=== PATIENT | male | born 1945 | race Caucasian/White ===

== ENCOUNTER → 2020-01-07 08:37 | Outpatient (BNVA) | payer MEDICARE, SELFPAY | PROVIDERS: Family Provider Internal Medicine; PCP Internal Medicine; Visit Provider Urology | DX: C61 Malignant neoplasm of prostate (principal); N39.9 Disorder of urinary system, unspecified; N52.9 Male erectile dysfunction, unspecified | CPT/HCPCS: 81001; 84153 ==

== ENCOUNTER 2020-02-10 12:11 | Emergency (ER) | payer MEDICARE, SELFPAY ==
[2020-02-10 12:21] VITALS: BP 209/122; PULSE 58; RESP 18; TEMP 36.9; O2SAT 99; BMI 22.8
--- NOTE | 2020-02-10 12:29 | CT_ITS ---
WS: [id number] CT HEAD NONCONTRAST HISTORY: stroke like symptoms TECHNIQUE: Contiguous axial imaging performed through the brain in 2.5 mm imaging. Bone and soft tiss ue windows. Sagittal and coronal reformats reviewed. All CT scans at [facility] use at ast one of these dose optimization techniques: automated exposure control; mA and/or kV adjustment pe r patient size (includes targeted exams where dose is matched to clinical indication); or iterative r econstruction. DLP: 771.08 mGy.cm COMPARISON: None available. No acute intracranial hemorrhage, midline shift or mass effect. Mild atrophy and moderate chronic microvascular ischemic changes in the white matter. Remote lacunar infarcts in the basal ganglia. Mild atrophy of the cerebellum. Retrocerebellar arachnoid cyst. Ventricles: Normal size with no hydrocephalus. Paranasal sinuses: As visualized are clear. Mastoid air cells: Well pneumatized. Calvarium and scalp: Skull is intact with no soft tissue edema or swelling. Notified Reba Randall MD [facility] [place] at 02/10/2020 12:[address]/CT head wo con* [id number] IMPRESSION: 1. No acute intracranial hemorrhage or edema. 2. Mild atrophy and chronic microvascular ischemic disease with prior lacunar.
--- NOTE | 2020-02-10 13:03 | W.ED.NEUROSD ---
HPI - Neuro Symptoms/Deficit General: Chief Complaint: Neuro Symptoms/Deficit Stated Complaint: stoke like symptoms Time Seen by Provider: 02/10/20 12:46 Source: patient and family Mode of arrival: ambulatory History of Present Illness: HPI Narrative: Patient was on his tractor moving hay when he developed a sudden onset of tingling on the left side of his face. He also states that he felt emotional about the same time. He was concerned about a stroke so he called his and his states that he had difficulty getting out off the tractor because of weakness on the left side. The patient has a baseline dysarthria but his says that his speech is more slurred. All his symptoms have resolved except some mild slurring of his speech according to his . He came here for evaluation. Onset (ago): hour(s) (2) Time: 11:05 Timing confirmed by: spouse Location: speech, left face, left arm and left leg History of same: No Severity: mild Quality: weak and tingling Relieving factors: time Exacerbating factors: none Context: sudden onset On Anticoagulants: No Associated symptoms: Reports no associated symptoms; Deny headache(s), nausea, vertigo or vomiting Treatments Prior to Arrival: none Review of Systems General: Reports: 10 or more systems reviewed and unremarkable except in HPI and below Const: Denies: fever(s), chills or body aches Eyes: Denies: change in vision or blurry vision ENMT: Denies: throat pain, enlarged tonsils, odynophagia, hoarseness, mouth pain or swelling of lips/tongue Card: Denies: palpitations, irregular heart rhythm, edema or swelling of feet/ankles Resp: Denies: dyspnea, productive cough or non-productive cough GI: Denies: abdominal pain, nausea or vomiting : Denies: flank pain, dysuria, urinary frequency, urinary urgency or urinary hesitancy Musc: Denies: neck pain, back pain or extremity swelling Skin/Breast: Denies: rash, pruritus or erythema Neuro: Reports: weakness in extremities and difficulty walking; Denies: headache(s), numbness in extremities, dizziness, vertigo, confusion, behavioral changes or seizure-like activity Endo: Denies: polyuria, polydipsia or tired all the time FOR[facility] ED PFSH: Medical History ASHD (arteriosclerotic heart disease) CKD (chronic kidney disease) Dyslipidemia Erectile dysfunction HTN (hypertension) Ischemic cardiomyopathy Myocardial infarction Prostate cancer PUD (peptic ulcer disease) Surgical History Hx of heart artery stent Hx of hernia repair Family History Father , PROSTATE CANCER Cancer Mother , OVARIAN CANCER Cancer Social History Smoking and tobacco status: never smoked Alcohol intake: never Adopted: No Caregiver/support person: No Lives independently: No Household members: spouse Marital status: Current occupational status: retired History of recent travel: No Current gender identity: Male NIH stroke score NIHSS: Level Of Consciousness - 1a: 0 Level Of Consciousness Questions - 1b: Both Correct Level Of Consciousness Commands - 1c: Both Correct Best Gaze - 2: Normal Visual Dalton - 3: No Visual Loss Facial Palsy - 4: Normal Motor Arm Right - 5: No Drift Motor Arm Left - 5: No Drift Motor Leg Right - 6: No Drift Motor Leg Left - 6: No Drift Limb Ataxia - 7: Absent Sensory - 8: Normal Best Language - 9: No Aphasia Dysarthia - 10: Mild/Moderate Dysarthia Extinction And Inattention - 11: 0 Score: Total Score: 1 Physical Exam Const: COMMON NORMALS: no acute distress, average body habitus, patient oriented x3, no limitations, healthy appearing, alert and well nourished HENMT: COMMON NORMALS: normocephalic, atraumatic and moist oral mucous membranes HEAD & SCALP: normocephalic and atraumatic Eye: COMMON NORMALS: Equal, round and reactive pupils present, EOMs intact bilaterally, conjunctivae normal and no scleral icterus CONJUNCTIVA: Yes conjunctivae normal PUPIL: Yes Equal, round and reactive pupils present Neck/C-Spine: COMMON NORMALS: full ROM, supple, no meningeal signs, no JVD and No carotid bruits Chest: COMMONS NORMALS: normal inspection of the chest and normal palpation of entire chest wall Resp: COMMON NORMALS: normal respiratory effort, No retractions, No use of accessory muscles, clear to auscultation bilaterally and percussion normal AUSCULTATION: clear to auscultation bilaterally PERCUSSION: percussion normal Cardio: COMMON NORMALS: no JVD, regular rate, regular rhythm, S1 normal heart sound present, S2 normal heart sound present, No gallops present (Cardio), No clicks present (Cardio), No murmurs present (Cardio), No rub (Cardio) and Peripheral pulses 2+ throughout RATE: regular rate RHYTHM: regular rhythm HEART SOUNDS: S1 normal heart sound present and S2 normal heart sound present PERIPHERAL PULSES: Peripheral pulses 2+ throughout GI: COMMON NORMALS: Normal to inspection, nondistended, normoactive bowel sounds present, Soft to palpation, non-tender, No hepatosplenomegaly present, no masses and no bruits PALPATION: Yes Soft to palpation and Yes No hepatosplenomegaly present : COMMON NORMALS: Yes no CVA tenderness BLADDER/KIDNEY EXAM: Yes no CVA tenderness Back/Pelvis: COMMON NORMALS: no CVA tenderness Extremity: COMMON NORMALS: normal to inspection, full ROM, capillary refill normal, no calf tenderness and no pedal edema Neuro: COMMON NORMALS: patient oriented x3, CN's II-XII intact bilaterally, moves all extremities, no focal motor deficits, no sensory deficits noted and gait normal (patient got up and walked in the hallway. Gait normal) SENSORIUM/ORIENTATION: Yes alert MENINGEAL SIGNS: Yes no meningeal signs Skin: COMMON NORMALS: no rashes or lesions noted, no wounds, turgor normal, no jaundice, no petechiae and no mottling GENERAL SKIN EXAM: no rashes or lesions noted and turgor normal Course Reevaluation(s): Reevaluation #1: Discussed his lab and imaging findings with him. Also discussed my conversation with Dr. Gauthier with him. Head CT negative, NIHSS low with a score 1. CMP with an elevated BUN and creatinine suggesting mild dehydration. Discussed placing the patient on antiplatelet and statin, however the patient states that he cannot tolerate aspirin or clopidogrel and he cannot tolerate any statin. I am therefore discharging him home with no new medications. The patient voiced understanding and is in agreement with the plan. Time: 14:00 Consultations: Consultation #1: Dr. Gauthier, neurology. Since his NIHSS is 1, there is no need for further work-up. Patient can be discharged home. Time: 13:03 Vital Signs: Vital signs: Vital Signs Temperature 98.5 F 02/10/20 12:21 Pulse Rate 53 L 02/10/20 15:49 Respiratory Rate 18 02/10/20 15:49 Blood Pressure 194/99 02/10/20 15:49 Pulse Oximetry 97 02/10/20 15:49 MDM - Neuro Symptoms/Deficit MDM Narrative: Medical decision making narrative: 75-year-old gentleman who presents to the emergency department with concerns of strokelike symptoms. NIHSS was 1, low score. After discussion with the neurologist it was determined that he did not need any further work-up. The patient was not discharged home on antiplatelet or a statin because he is unable to tolerate any of these medications. He is therefore discharged home to follow-up with his primary care provider. He is advised to increase his water intake, especially when he is outside working. Differential Diagnosis: Neuro Differential Diagnosis: Likely convulsions, delirium, cerebrovascular accident and transient cerebral ischemia Medical Records: Attestation: I reviewed the patient's medical records. Lab Data: Attestation: I reviewed the patient's lab results. Labs: Lab Results 02/10/20 02/10/20 02/10/20 Range/Units 13:24 13:24 13:26 WBC 6.1 (4.0-10.0) 10^3/ uL RBC 5.02 (4.1-5.3) 10^6/u L Hgb 15.3 (11.7-16.6) g/dL Hct 47.0 (42.0-52.0) % MCV 93.6 (80-94) fL MCH 30.5 (28.0-34.0) pg MCHC 32.6 (30.0-36.0) g/dL RDW 11.9 L (12.1-15.1) % Plt Count 246 (130-400) 10^3/c mm MPV 9.3 (7.4-10.4) fL Neut % (Auto) 67.1 % Lymph % (Auto) 21.2 % [place] % (Auto) 7.7 % Eos % (Auto) 3.0 % Baso % (Auto) 0.8 % Neut # (Auto) 4.1 (1.8-7.7) 10^3/u L Lymph # (Auto) 1.3 (0.8-4.8) 10^3/u L Win[place] # (Auto) 0.5 (0.2-0.9) 10^3/u L Eos # (Auto) 0.2 (0.0-0.8) 10^3/u L Baso # (Auto) 0.1 (0.0-0.1) 10^3/u L Nucleated RBC % (a uto) 0 % Nucleated RBCs # 0.0 /100WBC Sodium 139 (136-145) mmol/L Potassium 4.6 (3.5-5.1) mmol/L Chloride 102 (98-107) mmol/L Carbon Dioxide 27 (22-29) mmol/L Anion Gap 14.6 (5-19) BUN 24 H (8-23) mg/dL Creatinine 1.5 H (0.7-1.2) mg/dL Glucose 100 (65-115) mg/dL Calculated Osmolal ity 285 (285-295) mOsm/k g Calcium 10.8 H (8.5-10.5) mg/dL Total Bilirubin 0.3 (0.15-1.2) mg/dL AST 19 (0-40) U/L ALT 10 (0-41) U/L Alkaline Phosphata se 75 (40-130) IU/L Total Protein 7.4 (6.6-8.7) g/dL Albumin 4.3 (3.5-5.2) g/dL Globulin 3.1 (1.3-4.6) g/dL Urine Color Yellow (Yellow) Urine Appearance Clear (CLEAR) Urine pH 6 (5-7) Ur Specific Gravit y 1.015 (1.005-1.030) Urine Protein Neg (Negative) Urine Glucose (UA) Norm (Normal) Urine Ketones Negative (Negative) Urine Blood Neg (Negative) Urine Nitrate Negative (Negative) Urine Bilirubin Neg (NEGATIVE) Urine Urobilinogen Neg (Negative) mg/dL Ur Leukocyte Linette ase Negative (Negative) Imaging Data^: CT Head: Radiologist's impression: [address] [address] [address] Scan Report Signed Patient: Rafa Ramirez #: [id number] : [id number]#:[id number] Age/Sex: 75 / MADM Date: 02/10/20 Loc: ERRoom/Bed: Attending Dr: Ordering Provider/Ordering MD: Reba Randall MD, [facility] [place] Date of Service: 02/10/20 Procedure(s): CT head wo con* [id number] Accession Number(s): [id number] Report Number: [id number] WS: [id number] CT HEAD NONCONTRAST HISTORY: stroke like symptoms TECHNIQUE: Contiguous axial imaging performed through the brain in 2.5 mm imaging. Bone and soft tissue windows. Sagittal and coronal reformats reviewed. All CT scans at [facility] use at least one of these dose optimization techniques: automated exposure control; mA and/or kV adjustment per patient size (includes targeted exams where dose is matched to clinical indication); or iterative reconstruction. DLP: 771.08 mGy.cm COMPARISON: None available. No acute intracranial hemorrhage, midline shift or mass effect. Mild atrophy and moderate chronic microvascular ischemic changes in the white matter. Remote lacunar infarcts in the basal ganglia. Mild atrophy of the cerebellum. Retrocerebellar arachnoid cyst. Ventricles: Normal size with no hydrocephalus. Paranasal sinuses: As visualized are clear. Mastoid air cells: Well pneumatized. Calvarium and scalp: Skull is intact with no soft tissue edema or swelling. Notified Reba Randall MD [facility] [place] at 02/10/2020 12:[address]/CT head wo con* [id number] IMPRESSION: 1. No acute intracranial hemorrhage or edema. 2. Mild atrophy and chronic microvascular ischemic disease with prior lacunar. Dictated By:Karina Lester DO Signed By:Karina Lester DOSigned Date/Time:02/10/20 1254 DD/ 1248 Discharge Plan Discharge Patient Disposition: Home, Self-Care Clinical Impression: Stroke-like symptoms, Acute dehydration Condition: Stable Prescriptions: Continued sildenafil (pulm.hypertension) 20 mg tablet 20 mg PO DAILY PRN (Reason: prn) RF: 0 carvedilol 3.125 mg tablet 3.125 mg PO BID Qty: 180 RF: 3 lisinopril 10 mg tablet 10 mg PO DAILY RF: 0 Discharge Orders: Discharge Order (Routine); Ordered 02/10/20 Ordered By: Reba Randall Referrals: Glenys Sears MD [Primary Care Provider] - 1-3 days Patient Instructions: Dehydration (ED) Activity Restrictions/Additional Instructions: Return for any new or worsening symptoms. Follow-up with your primary care provider within 3 days. Continue your home medications as prescribed. Drink plenty of fluids to keep well-hydrated, you are mildly dehydrated and so you need to keep up with fluids especially when you are out working in the [place]. Discharge Date/Time: 02/10/20 15:52 Coding Level of Care Code ED Houseperson for Hannah Saunders
[2020-02-10 13:31] LABS: Add Urine Microscopic? NO
[2020-02-10 13:32] LABS: Basophils # 0.1 10^3/uL (0.0-0.1); Basophils % 0.8 %; Eosinophils # 0.2 10^3/uL (0.0-0.8); Hemoglobin 15.3 g/dL (11.7-16.6); Lymphocytes # 1.3 10^3/uL (0.8-4.8); Lymphocytes % 21.2 %; Mean Corpuscular HGB Conc 32.6 g/dL (30.0-36.0); Mean Corpuscular Hemoglobin 30.5 pg (28.0-34.0); Mean Corpuscular Volume 93.6 fL (80-94); Mean Platelet Volume 9.3 fL (7.4-10.4); Monocytes # 0.5 10^3/uL (0.2-0.9); Monocytes % 7.7 %; Neutrophils # 4.1 10^3/uL (1.8-7.7); Neutrophils % 67.1 %; Nucleated Red Blood Cells % 0 %; Platelet Count 246 10^3/cmm (130-400); Red Blood Count 5.02 10^6/uL (4.1-5.3); Red Cell Distribution Width 11.9 % (12.1-15.1); White Blood Count 6.1 10^3/uL (4.0-10.0)
[2020-02-10 13:47] LABS: Alanine Aminotransferase 10 U/L (0-41); Albumin Level 4.3 g/dL (3.5-5.2); Alkaline Phosphatase 75 IU/L (40-130); Anion Gap 14.6 (5-19); Aspartate Amino Transferase 19 U/L (0-40); Blood Urea Nitrogen 24 mg/dL (8-23); Calcium 10.8 mg/dL (8.5-10.5); Carbon Dioxide 27 mmol/L (22-29); Chloride 102 mmol/L (98-107); Globulin 3.1 g/dL (1.3-4.6); Glucose 100 mg/dL (65-115); Osmolality Calculated 285 mOsm/kg (285-295); Potassium 4.6 mmol/L (3.5-5.1); Sodium 139 mmol/L (136-145); Total Bilirubin 0.3 mg/dL (0.15-1.2); Total Protein 7.4 g/dL (6.6-8.7)
[2020-02-10 13:56] LABS: Bilirubin Urine Neg (NEGATIVE); Blood Urine Neg (Negative); Glucose Urine UA Norm (Normal); Ketones Urine Negative (Negative); Leukocyte Esterase Urine Negative (Negative); Nitrate Urine Negative (Negative); Protein Urine Neg (Negative); Specific Gravity, Urine 1.015 (1.005-1.030); Urine Appearance Clear (CLEAR); Urine Color Yellow (Yellow); Urobilinogen Urine Neg (Negative); pH Urine 6 (5-7)
[2020-02-10 15:49] VITALS: BP 194/99; PULSE 53; RESP 18; O2SAT 97
== END 2020-02-10 15:52 | disposition home or self-care (01) ==
PROVIDERS: Emergency Provider Family Medicine; PCP Internal Medicine
DX: R20.2 Paresthesia of skin (principal); E78.5 Hyperlipidemia, unspecified; I10 Essential (primary) hypertension; I25.2 Old myocardial infarction; Z85.46 Personal history of malignant neoplasm of prostate
CPT/HCPCS: 12345; 36415; 70450; 80053; 81003; 85025; 99282; 99283

== ENCOUNTER 2020-02-11 17:23 | Observation (INO) | payer MEDICARE, SELFPAY ==
[2020-02-11 17:36] VITALS: BP 206/108; PULSE 58; RESP 14; TEMP 36.6; O2SAT 98; BMI 23.0
--- NOTE | 2020-02-11 17:46 | CTR_ITS ---
PROCEDURE INFORMATION: Exam: CT Head Without Contrast Exam date and time: 02/11/2020 5:47 PM Age: 75 years old Clinical indication: Numbness / parasthesia and weakness, extremity and weakness, facial; Left; Patient HX: L facial droop w L sided weakness/numbness; Additional info: Symptoms of acute stroke TECHNIQUE: Imaging protocol: Computed tomography of the head without contrast. Radiation optimization: All CT scans at this facility use at least one of these dose optimization techniques: automated exposure control; mA and/or kV adjustment per patient size (includes targeted exams where dose is matched to clinical indication); or iterative reconstruction. Other technique: STROKE PROTOCOL was implemented. COMPARISON: No relevant prior studies available. RADIATION DOSE METRICS: Total DLP: 844.26 mGy-cm FINDINGS: Brain: There is age-related volume loss. There is white matter lucency consistent with chronic microvascular disease. There are small old basal ganglia lacunar infarcts. No acute infarct is identified. There is no hemorrhage or extra-axial collection. There is no mass. Ventricles: There is no hydrocephalus. Bones/joints: Unremarkable. No acute fracture. Sinuses: Visualized sinuses are unremarkable. No fluid levels. Mastoid air cells: Visualized mastoid air cells are well aerated. Soft tissues: Unremarkable. CT/CT head wo con* [id number] IMPRESSION: 1. There is chronic microvascular disease with small old lacunar infarcts. 2. No acute intracranial lesion or injury. ASSESSMENT: ASPECTS ([place] Stroke Program Early CT Score) is 10. Radiation Dose CTDIVOL = (mGy): DLP = 844.26 (mGy-cm)
--- NOTE | 2020-02-11 17:46 | ECG_ITS ---
Measurements Intervals [place] Rate: 56 P: 30 OR: 113 QRS: 27 QRSD: 95 T: 26 QT: 420 QTc: 406 SINUS BRADYCARDIA WITH SHORT OR INTERVAL POSSIBLE LEFT ATRIAL ENLARGEMENT [-0.1mV P WAVE IN V1/V2] NONSPECIFIC T-WAVE ABNORMALITY Poor R wave progression No previous ECG available for comparison Electronically Signed On 02-11-2020 20:57:46 CDT by Marta Novak M.D. [email or web address]
[2020-02-11 18:07] LABS: Basophils # 0.1 10^3/uL (0.0-0.1); Basophils % 0.7 %; Eosinophils # 0.3 10^3/uL (0.0-0.8); Eosinophils % 3.3 %; Hematocrit 46.8 % (42.0-52.0); Hemoglobin 15.3 g/dL (11.7-16.6); Lymphocytes # 1.8 10^3/uL (0.8-4.8); Lymphocytes % 23.5 %; Mean Corpuscular HGB Conc 32.7 g/dL (30.0-36.0); Mean Corpuscular Hemoglobin 30.7 pg (28.0-34.0); Mean Platelet Volume 9.6 fL (7.4-10.4); Monocytes # 0.6 10^3/uL (0.2-0.9); Monocytes % 8.3 %; Neutrophils # 4.9 10^3/uL (1.8-7.7); Neutrophils % 64.1 %; Nucleated Red Blood Cells % 0 %; Platelet Count 237 10^3/cmm (130-400); Red Blood Count 4.98 10^6/uL (4.1-5.3); Red Cell Distribution Width 11.8 % (12.1-15.1); White Blood Count 7.7 10^3/uL (4.0-10.0)
--- NOTE | 2020-02-11 18:12 | PM.SAN ---
Stroke Alert Activation ED Arrival Date: 02/11/20 Last Known Normal/at Baseline: 1-2 hours ago Other Last Known Well Infomation: I was called stat for stroke team for this 75-year-old man who mowed hay today on his tractor with air conditioning and drink plenty of fluids. At 4:00 he was with his when he developed left-sided numbness. He first noticed it when he was riding in the car and then after he got home he noticed that his left arm and left leg were numb. When he attempted to walk he was staggering about. She watched him for a while and finally he asked her to take him to the emergency room because he was not getting better. He was here yesterday with the same symptoms and his stroke scale score was 2 [address] I talked with Dr. Dr. Li about him. He resolved after observation for a short time and we agreed to send him home on aspirin. He did not take the aspirin because he has hemorrhoids that bled 3 months ago. He is here with his . I met him in CAT scan and watched his images acquired on the monitor and compared his CAT scan to yesterday. He has a subcortical chronic white matter lucency in the right frontal lobe that looks like nonspecific white matter disease versus an evolving subcortical stroke. He has chronic white matter change in the left parietal region. Nothing acute. On examination his NIH stroke scale score was 2. He does not meet criteria for TPA for that reason and I recommend admitting him, hydrating him and starting him on aspirin and Plavix. I explained to him that if he has hemorrhoidal bleeding it can be treated. Stroke Alert Activated by: Bairon Paris Stroke Alert Activation Time: 17:40 Stroke MD @ Bedside Time: 17:45 NIH stroke score NIHSS: Level Of Consciousness - 1a: 0 Level Of Consciousness Questions - 1b: Both Correct Level Of Consciousness Commands - 1c: Both Correct Best Gaze - 2: Normal Visual Dalton - 3: No Visual Loss Facial Palsy - 4: Normal Motor Arm Right - 5: No Drift Motor Arm Left - 5: No Drift Motor Leg Right - 6: No Drift Motor Leg Left - 6: Drift Limb Ataxia - 7: Present In One Limb Sensory - 8: Normal Best Language - 9: No Aphasia Dysarthia - 10: Normal Extinction And Inattention - 11: 0 Score: Total Score: 2 Stroke Alert Data/Treatment Time to CT of Head: 17:40 CT Results Time: 17:45 CT Impression: See above. Stroke Risk Factors: coronary artery disease and previous RI tPA Contraindication: tPA Contraindication: Treatment not indcated Patient & Family Educated on: Cause of Stroke, Risk Factors, Treament Plan and tPA Risks/Benefits Standardized Stroke Orders Used: Yes Critical Care Time Critical Care Time: less than 30 mins Coding Level of Care Code Acute Manager Of Training And Development for Hannah Saunders
--- NOTE | 2020-02-11 18:13 | CTR_ITS ---
PROCEDURE INFORMATION: Exam: CT Angiography Head With Contrast Exam date and time: 02/11/2020 6:14 PM Age: 75 years old Clinical indication: Patient HX: C/O L facial droop and L sided weakness; Additional info: Strokelike symptoms TECHNIQUE: Imaging protocol: Computed tomography angiography of the head with intravenous contrast. 3D rendering: MIP and/or 3D reconstructed images were created by the technologist. Radiation optimization: All CT scans at this facility use at least one of these dose optimization techniques: automated exposure control; mA and/or kV adjustment per patient size (includes targeted exams where dose is matched to clinical indication); or iterative reconstruction. Contrast material: VISI 320; Contrast volume: 95 ml; Contrast route: 20G; COMPARISON: CT head wo con* [id number] 02/11/2020 5:43 PM RADIATION DOSE METRICS: Total DLP: 8.41 mGy-cm FINDINGS: Anterior cerebral arteries: No occlusion or significant stenosis. No aneurysm. Right internal carotid artery: Intracranial segment is patent with no significant stenosis or occlusion. No aneurysm. Right middle cerebral artery: No occlusion or significant stenosis. No aneurysm. Right posterior cerebral artery: There is a origin of the right posterior cerebral artery. No stenosis. No aneurysm. Right vertebral artery: No occlusion or significant stenosis. No aneurysm. Left internal carotid artery: Intracranial segment is patent with no significant stenosis or occlusion. No aneurysm. Left middle cerebral artery: No occlusion or significant stenosis. No aneurysm. Left posterior cerebral artery: No occlusion or significant stenosis. No aneurysm. Left vertebral artery: No occlusion or significant stenosis. No aneurysm. Basilar artery: No occlusion or significant stenosis. No aneurysm. IMPRESSION: No intracranial stenosis or occlusion. PROCEDURE INFORMATION: Exam: CT Angiography Neck With Contrast Exam date and time: 02/11/2020 6:14 PM Age: 75 years old Clinical indication: Patient HX: C/O L facial droop and L sided weakness; Additional info: Strokelike symptoms TECHNIQUE: Imaging protocol: Computed tomography angiography of the neck with intravenous contrast. 3D rendering: MIP and/or 3D reconstructed images were created by the technologist. Radiation optimization: All CT scans at this facility use at least one of these dose optimization techniques: automated exposure control; mA and/or kV adjustment per patient size (includes targeted exams where dose is matched to clinical indication); or iterative reconstruction. Contrast material: VISI 320; Contrast volume: 95 ml; Contrast route: 20G; COMPARISON: CT head wo con* [id number] 02/11/2020 5:43 PM RADIATION DOSE METRICS: Total DLP: 8.41 mGy-cm FINDINGS: Right common carotid artery: No stenosis. No dissection or occlusion. Right internal carotid artery: No stenosis of the extracranial segment. No dissection or occlusion. Right external carotid artery: No occlusion or stenosis of the origin. Right vertebral artery: No stenosis. No dissection or occlusion. Left common carotid artery: No stenosis. No dissection or occlusion. Left internal carotid artery: No stenosis of the extracranial segment. No dissection or occlusion. Left external carotid artery: No occlusion or stenosis of the origin. Left vertebral artery: There is a moderate short segment stenosis of the V2 segment of the left vertebral artery. This appears secondary to external compression by a bone spur. There is no additional stenosis. There is no dissection. Bones/joints: There is multilevel cervical spondylosis, disc space narrowing and facet arthropathy. Soft tissues: Normal. No significant soft tissue swelling. CT/CT angio headneck* [id number] IMPRESSION: 1. No carotid stenosis. 2. 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 No stenosis of the dominant right vertebral artery. REFERENCES: NASCET CRITERIA. The degree of internal carotid artery stenosis is based on NASCET criteria. Normal is no stenosis. Mild is less than 50% stenosis. Moderate is 50-69% stenosis. Severe is 70% to 99% stenosis. Total occlusion is no detectable patent lumen. Radiation Dose CTDIVOL = (mGy): DLP = 2058.41~8.41 (mGy-cm)
[2020-02-11 18:18] LABS: INR 0.84 (0.8-1.2)
[2020-02-11 18:19] LABS: Partial Thromboplastin Time 34.6 SECONDS (23.9-36.7)
[2020-02-11 18:23] LABS: Alanine Aminotransferase 10 U/L (0-41); Albumin Level 4.2 g/dL (3.5-5.2); Alkaline Phosphatase 78 IU/L (40-130); Aspartate Amino Transferase 17 U/L (0-40); Blood Urea Nitrogen 24 mg/dL (8-23); Calcium 10.2 mg/dL (8.5-10.5); Carbon Dioxide 25 mmol/L (22-29); Chloride 102 mmol/L (98-107); Glucose 95 mg/dL (65-115); Osmolality Calculated 283 mOsm/kg (285-295); Sodium 138 mmol/L (136-145); Total Bilirubin 0.2 mg/dL (0.15-1.2); Total Protein 7.2 g/dL (6.6-8.7)
[2020-02-11] MEDS: aspirin 325 mg Tablet PO (18:37)
[2020-02-11] MEDS: ondansetron 2 mg/ML SDV 2 mL 4 MG IVP (18:37)
[2020-02-11] MEDS: iodixanol 320 mg/mL 100mL Btl IV (18:51)
[2020-02-11 19:20] LABS: Add Urine Microscopic? NO
--- NOTE | 2020-02-11 19:26 | PM.HP ---
Providers/Chief Complaint Primary Care Provider: Glenys Sears MD Chief Complaint: stroke s/s History of Present Illness Rafa Ramirez is a 75 year old male who has history of prostate cancer 3 years out from his treatment, follows with Dr. Mendoza, ischemic cardiomyopathy with stent in LAD 2011, came in with chief complaint of worsening generalized weakness. Yesterday he was seen in the ER for sudden development of tingling sensation of left side of his face, he was concerned about stroke called his and came to the ER for evaluation. His NIH score was 1, no active symptoms at the time of evaluation in the ER except mild slurring of speech, case was discussed with Dr. Gauthier, he was not considered a TPA candidate and was discharged home on aspirin. 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 he has baseline dysarthria since childhood. Today when he came to the ER his symptoms had resolved by that time, Dr. Gauthier saw him while he was getting CT head. NIH score 2. She recommended MRI and observation overnight. Patient is able to eat and drink, but strength is very good on flexion extension of upper and lower extremities, he does not feel weak anymore, his numbness has improved. He has not noticed any tick bites. Diagnostic in the ER revealed hypertension systolic range between 1 70-200mmhg Bradycardia short AK interval NIH score 2 for mild facial droop and numbness tingling CT head is showing old lacunar infarct with no acute pathology CTA head & neck revealed right vertebral mild stenosis otherwise unremarkable No cerebellar sign Review of Systems Const: Reports: body aches, fatigue and malaise; Denies: fever(s) or chills Eyes: Denies: change in vision ENMT: Denies: throat pain Card: Denies: chest pain Resp: Denies: dyspnea GI: Denies: abdominal pain : Denies: flank pain Musc: Denies: neck pain Skin/Breast: Denies: rash Neuro: Reports: numbness in extremities and Slurred speech present; Denies: headache(s), dizziness or vertigo Psych: Denies: anxiety Endo: Denies: polyuria Edmund/Lymph: Denies: easy bruising All/Imm: Denies: urticaria Medications/Allergies Home Medications Medication Instructions Recorded Confirmed Last Taken Type sildenafil (pulm.hypertension) 20 20 mg PO DAILY PRN tab 01/14/20 02/11/20 Unknown History mg tablet carvedilol 3.125 mg tablet 3.125 mg PO BID #180 tab 01/18/20 02/11/20 02/11/20 Rx lisinopril 10 mg PO DAILY 02/10/20 02/11/20 02/11/20 History cetirizine 5 mg PO DAILY 02/11/20 02/11/20 02/11/20 History fluticasone propionate [Flonase 2 spray INTRANASAL DAILY 02/11/20 02/11/20 02/09/20 History Allergy Relief] Allergies Allergy/AdvReac Type Severity Reaction Status Date / Time No Known Allergies Allergy Verified 02/11/20 19:39 PFSH Acute PFSH: Medical History ASHD (arteriosclerotic heart disease) CKD (chronic kidney disease) Dyslipidemia Erectile dysfunction HTN (hypertension) Hypothyroidism Ischemic cardiomyopathy Myocardial infarction Prostate cancer PUD (peptic ulcer disease) Surgical History Hx of heart artery stent LAD stent Hx of hernia repair S/P cataract extraction S/P tonsillectomy Family History Father , PROSTATE CANCER Cancer Mother , OVARIAN CANCER Cancer Social History Smoking and tobacco status: never smoked Alcohol intake: never Adopted: No Caregiver/support person: No Lives independently: No Household members: spouse Marital status: Current occupational status: retired History of recent travel: No Current gender identity: Male Vitals/I&O/Wt Last Vital Signs Temp 97.8 F 02/11/20 17:36 Pulse 58 L 02/11/20 17:36 Resp 14 02/11/20 17:36 BP 206/108 02/11/20 17:36 Pulse Ox 98 02/11/20 17:36 Weight last 48 hrs Weight 74.843 kg Weight 70.67 kg Physical Exam Narrative: EXAM NARRATIVE: Head to toe examination Patient is lying comfortably in his bed watching television He has dysarthria which she is stating that his baseline since childhood He has right-sided facial droop without drooling of saliva no signs of Ernst's palsy Good motor strength of upper and lower extremities on flexion extension 4/5 No focal deficit No sensory No cerebellar sign Reflexes equivocal Awake alert oriented x3 S1, S2 sinus bradycardia Abdomen soft nontender non-tender, bowel sound present Lungs are clear to auscultation Lower extremity no signs of edema gangrene ulcer Appropriate mood and affect EOMI PERRLA Data : 02/11/20 18:04 02/11/20 18:04 A&P Assessment and plan (1) Stroke-like symptoms: No acute intracranial hemorrhage evident on CT scan, He has been hypertensive with sinus bradycardia No intracranial hemorrhage or mass seen: No signs of intracranial hypertension NIH score 2: Not a TPA candidate CT head unremarkable CTA head and neck showed right vertebral mild stenosis due to osteoarthritis of vertebral bones otherwise unremarkable We will get MRI in the morning for diagnostic benefits We will start him on aspirin Plavix for at least 21 days and then continue aspirin, patient has history of hemorrhoids which bled about a month ago, he is willing to use dual antiplatelet therapy for at least 3 weeks High-dose statins Does not need speech or physical therapy evaluation in the morning I would start him on cardiac diet Status: Acute (2) HTN (hypertension): I would allow permissive hypertension for now would use hydralazine if blood pressure is above 180/100mmhg We have limited options for antihypertensive because of sinus bradycardia I want to be continuing his carvedilol Going to use amlodipine for now, his creatinine is 1.4, hold lisinopril for now Status: Acute (3) CKD (chronic kidney disease): 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 [facility] Baseline creatinine seems to be around 1.1-1.3 Hold lisinopril for now Would avoid adding hydrochlorothiazide to prevent electrolyte abnormality because of his active symptoms of numbness and tingling Status: Acute (4) Dyslipidemia: Started him on high-dose statin 80 mg, Status: Acute Additional A&P Information DVT prophylaxis: Heparin Cardiac diet Full code Attestations Medical Necessity Statement*: Anticipating stay in the hospital to be less than 2 midnights, discharge probably tomorrow morning after MRI for stroke work-up Time Spent in Patient Care: (>than 50% of time spent in counselling and/or direct pt care on unit). 50 Coding Level of Care Code Acute Quality Assurance Lead for Hannah Ervind Diagnoses Stroke-like symptoms R29.90 HTN (hypertension) I10 CKD (chronic kidney disease) N18.9 Dyslipidemia E78.5
[2020-02-11 19:34] VITALS: BP 177/105; PULSE 54; RESP 18; O2SAT 98
[2020-02-11 19:35] LABS: Bilirubin Urine Neg (NEGATIVE); Blood Urine Neg (Negative); Glucose Urine UA Norm (Normal); Ketones Urine Negative (Negative); Leukocyte Esterase Urine Negative (Negative); Nitrate Urine Negative (Negative); Protein Urine Neg (Negative); Urine Appearance Clear (CLEAR); Urine Color Yellow (Yellow); Urobilinogen Urine Norm (Negative); pH Urine 6.5 (5-7)
[2020-02-11 19:45] LABS: Amphetamines Screen Urine Negative (Negative); Barbiturates Screen Urine Negative (Negative); Benzodiazepines Screen Urine Negative (Negative); Cocaine Screen Urine Negative (Negative); Opiate Screen Urine Negative (Negative); PCP Screen Urine Negative (Negative); THC Screen Urine Negative (Negative)
[2020-02-11 20:45] VITALS: BP 177/105; PULSE 62; RESP 18; O2SAT 98
[2020-02-11 21:04] VITALS: BP 124/83; PULSE 57; RESP 18; TEMP 36.4; O2SAT 98
[2020-02-11 21:19] LABS: Glucose Point of Care 141 mg/dL (70-110)
--- NOTE | 2020-02-11 22:07 | W.ED.NEUROSD ---
HPI - Neuro Symptoms/Deficit General: Chief Complaint: Neuro Symptoms/Deficit Stated Complaint: stroke s/s Time Seen by Provider: 02/11/20 17:44 History of Present Illness: HPI Narrative: Patient was seen here in this department yesterday for similar symptoms. 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 He had tingling sensation in his left upper extremity as well. But both left upper and lower extremities were normal. He then attempted to walk and his noticed that he was walking in a staggering fashion and the felt his gait was worse than it was yesterday. Yesterday his stroke score was too low for TPA and he had said he had allergies to aspirin although on further clarification today he said he only had some bleeding hemorrhoids which is why his food equipment service technician had stopped him from taking aspirin. He however cannot take statins as it causes severe muscle pain. He symptoms not improved like they did yesterday and so he asked his to bring her to the emergency department for evaluation. History of same: Yes Severity: similar to previous episodes Associated symptoms: Deny headache(s), nausea or vomiting Review of Systems General: Reports: 10 or more systems reviewed and unremarkable except in HPI and below Const: Denies: fever(s), chills or body aches Eyes: Denies: change in vision or blurry vision ENMT: Denies: throat pain, enlarged tonsils, odynophagia, hoarseness, mouth pain or swelling of lips/tongue Card: Denies: palpitations, irregular heart rhythm, edema or swelling of feet/ankles Resp: Denies: dyspnea, productive cough or non-productive cough GI: Denies: abdominal pain, nausea or vomiting : Denies: flank pain, dysuria, urinary frequency, urinary urgency or urinary hesitancy Musc: Denies: neck pain, back pain or extremity swelling Skin/Breast: Denies: rash, pruritus or erythema Neuro: Reports: numbness in extremities, difficulty walking and Slurred speech present; Denies: headache(s) or weakness in extremities Endo: Denies: polyuria, polydipsia or tired all the time PFS ED PFSH: Medical History (Reviewed 02/11/20 @ 22:14 by Reba Randall MD, [facility] [place] ASHD (arteriosclerotic heart disease) CKD (chronic kidney disease) Dyslipidemia Erectile dysfunction HTN (hypertension) Hypothyroidism Ischemic cardiomyopathy Myocardial infarction Prostate cancer PUD (peptic ulcer disease) Surgical History Hx of heart artery stent LAD stent Hx of hernia repair S/P cataract extraction S/P tonsillectomy Family History Father , PROSTATE CANCER Cancer Mother , OVARIAN CANCER Cancer Social History Smoking and tobacco status: never smoked Alcohol intake: never Adopted: No Caregiver/support person: No Lives independently: No Household members: spouse Marital status: Current occupational status: retired History of recent travel: No Current gender identity: Male NIH stroke score NIHSS: Level Of Consciousness - 1a: 0 Level Of Consciousness Questions - 1b: Both Correct Level Of Consciousness Commands - 1c: Both Correct Best Gaze - 2: Normal Visual Dalton - 3: No Visual Loss Facial Palsy - 4: Normal Motor Arm Right - 5: No Drift Motor Arm Left - 5: No Drift Motor Leg Right - 6: No Drift Motor Leg Left - 6: Drift Limb Ataxia - 7: Absent Sensory - 8: Normal Best Language - 9: No Aphasia Dysarthia - 10: Mild/Moderate Dysarthia Extinction And Inattention - 11: 0 Score: Total Score: 2 Physical Exam Const: COMMON NORMALS: no acute distress, average body habitus, patient oriented x3, no limitations, healthy appearing, alert and well nourished HENMT: COMMON NORMALS: normocephalic, atraumatic and moist oral mucous membranes HEAD & SCALP: normocephalic and atraumatic Eye: COMMON NORMALS: Equal, round and reactive pupils present, EOMs intact bilaterally, conjunctivae normal and no scleral icterus CONJUNCTIVA: Yes conjunctivae normal PUPIL: Yes Equal, round and reactive pupils present Neck/C-Spine: COMMON NORMALS: full ROM, supple, no meningeal signs, no JVD and No carotid bruits Chest: COMMONS NORMALS: normal inspection of the chest and normal palpation of entire chest wall Resp: COMMON NORMALS: normal respiratory effort, No retractions, No use of accessory muscles, clear to auscultation bilaterally and percussion normal AUSCULTATION: clear to auscultation bilaterally PERCUSSION: percussion normal Cardio: COMMON NORMALS: no JVD, regular rate, regular rhythm, S1 normal heart sound present, S2 normal heart sound present, No gallops present (Cardio), No clicks present (Cardio), No murmurs present (Cardio), No rub (Cardio) and Peripheral pulses 2+ throughout RATE: regular rate RHYTHM: regular rhythm HEART SOUNDS: S1 normal heart sound present and S2 normal heart sound present PERIPHERAL PULSES: Peripheral pulses 2+ throughout GI: COMMON NORMALS: Normal to inspection, nondistended, normoactive bowel sounds present, Soft to palpation, non-tender, No hepatosplenomegaly present, no masses and no bruits PALPATION: Yes Soft to palpation and Yes No hepatosplenomegaly present : COMMON NORMALS: Yes no CVA tenderness BLADDER/KIDNEY EXAM: Yes no CVA tenderness Back/Pelvis: COMMON NORMALS: no CVA tenderness Extremity: COMMON NORMALS: normal to inspection, full ROM, capillary refill normal, no calf tenderness and no pedal edema Neuro: COMMON NORMALS: patient oriented x3 SENSORIUM/ORIENTATION: Yes alert MENINGEAL SIGNS: Yes no meningeal signs Skin: COMMON NORMALS: no rashes or lesions noted, no wounds, turgor normal, no jaundice, no petechiae and no mottling GENERAL SKIN EXAM: no rashes or lesions noted and turgor normal Course Consultations: Consultation #1: I saw this patient with Dr. Gauthier for a stroke alert. She looked at his head CT and advised overnight observation for stroke work-up. Consultation #2: Dr. Galeano, hospitalist. He kindly accepted the patient to his service. Time: 19:23 Vital Signs: Vital signs: Vital Signs Temperature 97.6 F 02/11/20 21:04 Pulse Rate 57 L 02/11/20 21:04 Respiratory Rate 18 02/11/20 21:04 Blood Pressure 124/83 02/11/20 21:04 Pulse Oximetry 98 02/11/20 21:04 MDM - Neuro Symptoms/Deficit MDM Narrative: Medical decision making narrative: Patient who presented as a stroke activation. He presented to the emergency department yesterday with the same symptoms. Today, his symptoms were not resolving as quickly as he did yesterday so he represented. He was also examined by the neurologist who agreed that the patient would benefit from an overnight stay for a complete stroke work-up. NIHSS was 2 which was too low for TPA. Medical Records: Attestation: I reviewed the patient's medical records. Lab Data: Attestation: I reviewed the patient's lab results. Labs: Lab Results 02/11/20 02/11/20 02/11/20 Range/Units 18:04 18:04 18:04 WBC 7.7 (4.0-10.0) 10^3/ uL RBC 4.98 (4.1-5.3) 10^6/u L Hgb 15.3 (11.7-16.6) g/dL Hct 46.8 (42.0-52.0) % MCV 94.0 (80-94) fL MCH 30.7 (28.0-34.0) pg MCHC 32.7 (30.0-36.0) g/dL RDW 11.8 L (12.1-15.1) % Plt Count 237 (130-400) 10^3/c mm MPV 9.6 (7.4-10.4) fL Neut % (Auto) 64.1 % Lymph % (Auto) 23.5 % Crenshaw % (Auto) 8.3 % Eos % (Auto) 3.3 % Baso % (Auto) 0.7 % Neut # (Auto) 4.9 (1.8-7.7) 10^3/u L Lymph # (Auto) 1.8 (0.8-4.8) 10^3/u L Crenshaw # (Auto) 0.6 (0.2-0.9) 10^3/u L Eos # (Auto) 0.3 (0.0-0.8) 10^3/u L Baso # (Auto) 0.1 (0.0-0.1) 10^3/u L Nucleated RBC % (a uto) 0 % Nucleated RBCs # 0.0 /100WBC PT 11.70 (10.5-13.3) SECO NDS INR 0.84 (0.8-1.2) APTT 34.6 (23.9-36.7) SECO NDS Sodium 138 (136-145) mmol/L Potassium 5.0 (3.5-5.1) mmol/L Chloride 102 (98-107) mmol/L Carbon Dioxide 25 (22-29) mmol/L Anion Gap 16.0 (5-19) BUN 24 H (8-23) mg/dL Creatinine 1.4 H (0.7-1.2) mg/dL Glucose 95 (65-115) mg/dL Calculated Osmolal ity 283 L (285-295) mOsm/k g Calcium 10.2 (8.5-10.5) mg/dL Total Bilirubin 0.2 (0.15-1.2) mg/dL AST 17 (0-40) U/L ALT 10 (0-41) U/L Alkaline Phosphata se 78 (40-130) IU/L Total Protein 7.2 (6.6-8.7) g/dL Albumin 4.2 (3.5-5.2) g/dL Globulin 3.0 (1.3-4.6) g/dL Urine Color (Yellow) Urine Appearance (CLEAR) Urine pH (5-7) Ur Specific Gravit y (1.005-1.030) Urine Protein (Negative) Urine Glucose (UA) (Normal) Urine Ketones (Negative) Urine Blood (Negative) Urine Nitrate (Negative) Urine Bilirubin (NEGATIVE) Urine Urobilinogen (Negative) mg/dL Ur Leukocyte Linette ase (Negative) Urine Opiates Scre en (Negative) ng/mL Ur Barbiturates Sc reen (Negative) ng/mL Ur Phencyclidine S crn (Negative) ng/mL Ur Amphetamines Sc reen (Negative) ng/mL U Benzodiazepines Scrn (Negative) ng/mL Urine Cocaine Scre en (Negative) ng/mL U Marijuana (THC) Screen (Negative) ng/mL 02/11/20 02/11/20 Range/Units 18:34 18:34 WBC (4.0-10.0) 10^3/ uL RBC (4.1-5.3) 10^6/u L Hgb (11.7-16.6) g/dL Hct (42.0-52.0) % MCV (80-94) fL MCH (28.0-34.0) pg MCHC (30.0-36.0) g/dL RDW (12.1-15.1) % Plt Count (130-400) 10^3/c mm MPV (7.4-10.4) fL Neut % (Auto) % Lymph % (Auto) % Crenshaw % (Auto) % Eos % (Auto) % Baso % (Auto) % Neut # (Auto) (1.8-7.7) 10^3/u L Lymph # (Auto) (0.8-4.8) 10^3/u L Crenshaw # (Auto) (0.2-0.9) 10^3/u L Eos # (Auto) (0.0-0.8) 10^3/u L Baso # (Auto) (0.0-0.1) 10^3/u L Nucleated RBC % (a uto) % Nucleated RBCs # /100WBC PT (10.5-13.3) SECO NDS INR (0.8-1.2) APTT (23.9-36.7) SECO NDS Sodium (136-145) mmol/L Potassium (3.5-5.1) mmol/L Chloride (98-107) mmol/L Carbon Dioxide (22-29) mmol/L Anion Gap (5-19) BUN (8-23) mg/dL Creatinine (0.7-1.2) mg/dL Glucose (65-115) mg/dL Calculated Osmolal ity (285-295) mOsm/k g Calcium (8.5-10.5) mg/dL Total Bilirubin (0.15-1.2) mg/dL AST (0-40) U/L ALT (0-41) U/L Alkaline Phosphata se (40-130) IU/L Total Protein (6.6-8.7) g/dL Albumin (3.5-5.2) g/dL Globulin (1.3-4.6) g/dL Urine Color Yellow (Yellow) Urine Appearance Clear (CLEAR) Urine pH 6.5 (5-7) Ur Specific Gravit y 1.010 (1.005-1.030) Urine Protein Neg (Negative) Urine Glucose (UA) Norm (Normal) Urine Ketones Negative (Negative) Urine Blood Neg (Negative) Urine Nitrate Negative (Negative) Urine Bilirubin Neg (NEGATIVE) Urine Urobilinogen Norm (Negative) mg/dL Ur Leukocyte Linette ase Negative (Negative) Urine Opiates Scre en Negative (Negative) ng/mL Ur Barbiturates Sc reen Negative (Negative) ng/mL Ur Phencyclidine S crn Negative (Negative) ng/mL Ur Amphetamines Sc reen Negative (Negative) ng/mL U Benzodiazepines Scrn Negative (Negative) ng/mL Urine Cocaine Scre en Negative (Negative) ng/mL U Marijuana (THC) Screen Negative (Negative) ng/mL Imaging Data^: CT Head: Radiologist's impression: [address] [address] [address] Scan Report Signed Patient: Rafa Ramirez #: [id number] : 1945Acct#:[id number] Age/Sex: 75 / MADM Date: 02/11/20 Loc: ERRoom/Bed: Attending Dr: Ordering Provider/Ordering MD: Jonatan Hannon DO Date of Service: 02/11/20 Procedure(s): CT head wo con* [id number] Accession Number(s): [id number] Report Number: [id number] PROCEDURE INFORMATION: Exam: CT Head Without Contrast Exam date and time: 02/11/2020 5:47 PM Age: 75 years old Clinical indication: Numbness / parasthesia and weakness, extremity and weakness, facial; Left; Patient HX: L facial droop w L sided weakness/numbness; Additional info: Symptoms of acute stroke TECHNIQUE: Imaging protocol: Computed tomography of the head without contrast. Radiation optimization: All CT scans at this facility use at least one of these dose optimization techniques: automated exposure control; mA and/or kV adjustment per patient size (includes targeted exams where dose is matched to clinical indication); or iterative reconstruction. Other technique: STROKE PROTOCOL was implemented. COMPARISON: No relevant prior studies available. RADIATION DOSE METRICS: Total DLP: 844.26 mGy-cm FINDINGS: Brain: There is age-related volume loss. There is white matter lucency consistent with chronic microvascular disease. There are small old basal ganglia lacunar infarcts. No acute infarct is identified. There is no hemorrhage or extra-axial collection. There is no mass. Ventricles: There is no hydrocephalus. Bones/joints: Unremarkable. No acute fracture. Sinuses: Visualized sinuses are unremarkable. No fluid levels. Mastoid air cells: Visualized mastoid air cells are well aerated. Soft tissues: Unremarkable. CT/CT head wo con* [id number] IMPRESSION: 1. There is chronic microvascular disease with small old lacunar infarcts. 2. No acute intracranial lesion or injury. ASSESSMENT: ASPECTS (Anna Stroke Program Early CT Score) is 10. Radiation Dose CTDIVOL = (mGy): DLP = 844.26 (mGy-cm) Dictated By:Zan Roa MD Signed By:Zan Roa MDSigned Date/Time:02/11/201803 DD/ [address]: Radiologist's impression: [place] [address] CT Scan Report Signed Patient: Rafa Ramirez #: [id number] : [birth year]Acct#:[id number] Age/Sex: 75 / MADM Date: 02/11/20 Loc: ERRoom/Bed: Attending Dr: Ordering Provider/Ordering MD: Reba Randall MD, [facility] [place] Date of Service: 02/11/20 Procedure(s): CT angio headneck* [id number] Accession Number(s): [id number] Report Number: [id number] PROCEDURE INFORMATION: Exam: CT Angiography Head With Contrast Exam date and time: 02/11/2020 6:14 PM Age: 75 years old Clinical indication: Patient HX: C/O L facial droop and L sided weakness; Additional info: Strokelike symptoms TECHNIQUE: Imaging protocol: Computed tomography angiography of the head with intravenous contrast. 3D rendering: MIP and/or 3D reconstructed images were created by the technologist. Radiation optimization: All CT scans at this facility use at least one of these dose optimization techniques: automated exposure control; mA and/or kV adjustment per patient size (includes targeted exams where dose is matched to clinical indication); or iterative reconstruction. Contrast material: VISI 320; Contrast volume: 95 ml; Contrast route: 20G; COMPARISON: CT head wo con* [id number] 02/11/2020 5:43 PM RADIATION DOSE METRICS: Total DLP: 2058.41 mGy-cm FINDINGS: Anterior cerebral arteries: No occlusion or significant stenosis. No aneurysm. Right internal carotid artery: Intracranial segment is patent with no significant stenosis or occlusion. No aneurysm. Right middle cerebral artery: No occlusion or significant stenosis. No aneurysm. Right posterior cerebral artery: There is a origin of the right posterior cerebral artery. No stenosis. No aneurysm. Right vertebral artery: No occlusion or significant stenosis. No aneurysm. Left internal carotid artery: Intracranial segment is patent with no significant stenosis or occlusion. No aneurysm. Left middle cerebral artery: No occlusion or significant stenosis. No aneurysm. Left posterior cerebral artery: No occlusion or significant stenosis. No aneurysm. Left vertebral artery: No occlusion or significant stenosis. No aneurysm. Basilar artery: No occlusion or significant stenosis. No aneurysm. IMPRESSION: No intracranial stenosis or occlusion. PROCEDURE INFORMATION: Exam: CT Angiography Neck With Contrast Exam date and time: 02/11/2020 6:14 PM Age: 75 years old Clinical indication: Patient HX: C/O L facial droop and L sided weakness; Additional info: Strokelike symptoms TECHNIQUE: Imaging protocol: Computed tomography angiography of the neck with intravenous contrast. 3D rendering: MIP and/or 3D reconstructed images were created by the technologist. Radiation optimization: All CT scans at this facility use at least one of these dose optimization techniques: automated exposure control; mA and/or kV adjustment per patient size (includes targeted exams where dose is matched to clinical indication); or iterative reconstruction. Contrast material: VISI 320; Contrast volume: 95 ml; Contrast route: 20G; COMPARISON: CT head wo con* [id number] 02/11/2020 5:43 PM RADIATION DOSE METRICS: Total DLP: 2058.41 mGy-cm FINDINGS: Right common carotid artery: No stenosis. No dissection or occlusion. Right internal carotid artery: No stenosis of the extracranial segment. No dissection or occlusion. Right external carotid artery: No occlusion or stenosis of the origin. Right vertebral artery: No stenosis. No dissection or occlusion. Left common carotid artery: No stenosis. No dissection or occlusion. Left internal carotid artery: No stenosis of the extracranial segment. No dissection or occlusion. Left external carotid artery: No occlusion or stenosis of the origin. Left vertebral artery: There is a moderate short segment stenosis of the V2 segment of the left vertebral artery. This appears secondary to external compression by a bone spur. There is no additional stenosis. There is no dissection. Bones/joints: There is multilevel cervical spondylosis, disc space narrowing and facet arthropathy. Soft tissues: Normal. No significant soft tissue swelling. CT/CT angio headneck* [id number] IMPRESSION: 1. No carotid stenosis. 2. 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 No stenosis of the dominant right vertebral artery. REFERENCES: NASCET CRITERIA. The degree of internal carotid artery stenosis is based on NASCET criteria. Normal is no stenosis. Mild is less than 50% stenosis. Moderate is 50-69% stenosis. Severe is 70% to 99% stenosis. Total occlusion is no detectable patent lumen. Radiation Dose CTDIVOL = (mGy): DLP = 8.41~8.41 (mGy-cm) Dictated By:Zan Roa MD Signed By:Zan Roaigned Date/Time:02/11/201917 DD/ 16 EKG Data^: EKG 1: Attestation: I personally reviewed and interpreted this EKG as follows: EKG interpretation date: 02/11/20 EKG interpretation time: 19:20 Prior EKG tracings: available for review Interpretation: Sinus bradycardia. Heart rate 56 bpm. Left atrial enlargement. Discharge Plan Discharge Patient Disposition: Placed in Observation Admit Provider: Sobeida Galeano Clinical Impression: Stroke-like symptoms, HTN (hypertension) Condition: Stable Interventions: ED Discharge Assessment Last Done: 02/11/20 20:45 ED Charges Last Done: 02/11/20 20:45 Discharge Date/Time: 02/11/20 21:07 Coding Level of Care Code ED Supervisor Personnel Clerks for Chg Chip
--- NOTE | 2020-02-11 22:13 | PC.NURSE ---
ADMIT NOTE PT NOTED TO HAVE A SPEECH IMPEDIMENT - PT VERBALIZES SPEECH HAS BEEN IMPAIRED SINCE AND THAT THERE HAS BEEN NO CHANGE IN SPEECH SINCE CVA/TIA SYMPTOMS OCCURRED - NOTED PT TO HAVE SLIGHT LEFT FACIAL DROOPING - SEE NIHSS FOR FURTHER DETAILS OF STROKE SYMPTOMS
[2020-02-11 22:17] VITALS: PULSE 64; O2SAT 95
[2020-02-11 22:36] LABS: Chol HDL Ratio 7.83 mg/dL (1.0-5.00); Cholesterol 274 mg/dL (0-200); HDL Cholesterol 35 mg/dL (60-100); LDL Cholesterol Calculated 189 mg/dL (50-129); Thyroid Stimulating Hormone 4.61 uIU/mL (0.27-4.20); Triglycerides 250 mg/dL (0-150)
[2020-02-11 23:22] VITALS: BP 170/96; PULSE 48; RESP 17; TEMP 36.7; O2SAT 98
[2020-02-12] MEDS: amlodipine 10 mg Tablet PO ×2 (00:26→09:01)
[2020-02-12] MEDS: heparin 5,000 unit/mL INJ 1 mL 5000 UNIT SUBCUT ×3 (00:26→14:16)
[2020-02-12 03:22] VITALS: BP 195/110; PULSE 56; RESP 19; TEMP 36.7; O2SAT 97
[2020-02-12] MEDS: hyDRALAzine 20 mg/mL INJ 1 mL 5 MG IVP (04:47)
[2020-02-12 05:43] LABS: Anion Gap 15.3 (5-19); Blood Urea Nitrogen 22 mg/dL (8-23); Calcium 10.2 mg/dL (8.5-10.5); Carbon Dioxide 26 mmol/L (22-29); Chloride 103 mmol/L (98-107); Glucose 101 mg/dL (65-115); Osmolality Calculated 287 mOsm/kg (285-295); Potassium 4.3 mmol/L (3.5-5.1); Sodium 140 mmol/L (136-145)
[2020-02-12 07:00] VITALS: BP 174/100; PULSE 65; RESP 18; TEMP 36.4; O2SAT 96
--- NOTE | 2020-02-12 08:00 | MR_ITS ---
WS: [id number] MRI BRAIN WITHOUT CONTRAST HISTORY: LACUNAR INFARCT AND G weakness COMPARISON: CT head 02/11/2020 TECHNIQUE: Diffusion imaging, multiplanar T1, T2 and FLAIR imaging obtained. No evidence for an acute infarct. No hemorrhage or mass effect. There is extensive T2 and FLAIR signa l hyperintensities throughout the periventricular and subcortical white matter. There are a few scatt ered areas of chronic ischemic disease in the tiara bilaterally. No remote or acute infarcts are volume loss. Ventricles and extra-axial spaces are normal. No inferior displacement of cerebellar tonsils. The sella turcica and pituitary gland are unremarkabl e. Posterior fossa is also unremarkable. Dural venous sinuses and [place] demonstrate no abnormality on this unenhanced studies. Paranasal sinuses: Minimal mucoperiosteal thickening in the RIGHT maxillary sinus. Mastoid air cells: Normal. Calvarium and scalp: Intact. MR/MR head wo con* [id number] IMPRESSION: 1. No acute infarct or hemorrhage. 2. Moderate chronic microvascular ischemic changes throughout the periventricu lar and subcortical white matter. 3. Minimal chronic microvascular ischemic change in the tiara bilaterally.
[2020-02-12] MEDS: atorvastatin 40 mg Tablet 80 MG PO (09:01)
[2020-02-12] MEDS: clopidogrel 75 mg Tablet PO (09:01)
[2020-02-12] MEDS: aspirin 81 mg EC Tablet PO (09:02)
--- NOTE | 2020-02-12 09:34 | PC.CHAP ---
Pastoral Care Encounter/Spiritual Assessment Type of Contact [] Declined tester waste disposal leakage visit [] Patient/Family/Request visit [] Outpatient visit [] Follow-up visit [] Physician referral [] Code/Alert [x] Routine visit [] Staff referral [] Actively dying [] Patient sleeping [] Family support [] [] Out of room [] Palliative care [] [] Receiving care in room [] Pre-surgical visit [] Trauma [] Long length of stay [] ICU visit [] Other: Relational/Emotional Strength [] Patient feels connected with others/family/visitors/staff [] Distress [] Loneliness/isolation [] Abandonment Spirituality of Patient [] Person of Jessika [] Attends Protestant of their Jessika [] Believes in Prayer [] Reads Bible or Muslim materials [] There are Spiritual issues to be addressed Wirer Maintenance Interventions [x] Prayer [] Active listening [] Non-anxious presence [] Spiritual/emotional support [] Crisis/trauma care [] Spiritual counseling [] Bereavement support [] Provided bereavement packet [] Provided Bible/devotional materials [] Provided toy/stuffed animal, coloring book to patient or family member [] Provided Communion [] Anointing/Irving [] Salvation [x] Completed spiritual assessment [] Other: Impact on Illness or Injury [] Angry [] Fearful [] Anxious [] Often cries [] Exhaustion [] Unable to work [] Unable to attend latter day [] Unable to walk/stand [] Unable to read [] Unable to drive [] Unable to eat/drink [] Unable to sleep [] Unable to be with family [] Patient intubated [] Other: Summary Patient finished MRI- having late breakfast. Hopes to get some rest,. Time spent with patient 10 min
[2020-02-12 11:00] VITALS: BP 195/107; PULSE 65; RESP 19; TEMP 36.6; O2SAT 96
--- NOTE | 2020-02-12 11:05 | PC.NURSE ---
patient ambulated to door says I'm having a stroke. states same S/S as he had yesterday. vitals checked 185/102, notified Dr Rios
--- NOTE | 2020-02-12 11:05 | USCV_ITS ---
Rafa Ramirez Age: 75 Gender: M : 1945 Exam Date: 02/12/2020 15:08 Ordering Phys: Rae Rios MD Technologist: Lizeth Caba Exam Location: [facility] – [place] Indication: stroke workup BP: 195 / 107 HR: 67 Rhythm: Sinus Technical Quality: Adequate MEASUREMENTS (Male / Female) Normal Values 2D ECHO LV Diastolic Diameter PLAX 3.9 cm 4.2 - 5.9 / 3.9 - 5.3 cm LV Systolic Diameter PLAX 2.8 cm LV Chamber Size 2.6 cm IVS Diastolic Thickness 1.5 cm 0.6 - 1.0 / 0.6 - 0.9 cm IVS Systolic Thickness 1.3 cm LVPW Diastolic Thickness 1.6 cm 0.6 - 1.0 / 0.6 - 0.9 cm LVPW Systolic Thickness 2.0 cm RV Chamber Size 2.9 cm LVOT Diameter 2.0 cm LV Ejection Fraction 2D Teich 57.3 % LV Ejection Fraction MOD 2C 54.8 % LV Ejection Fraction 2C AL 56.4 % LA Diameter 3.8 cm LA Width 4.4 cm LA Height 4.8 cm RA Width 3.6 cm RA Height 4.4 cm Aorta at Sinotubular Diameter 3.0 cm M-MODE LV Diastolic Diameter MM 5.5 cm 4.2 - 5.9 / 3.9 - 5.3 cm LV Systolic Diameter MM 3.5 cm LV Ejection Fraction MM Teich 65.2 % IVS Diastolic Thickness MM 0.6 cm 0.6 - 1.0 / 0.6 - 0.9 cm IVS Systolic Thickness MM 1.0 cm LVPW Diastolic Thickness MM 0.8 cm 0.6 - 1.0 / 0.6 - 0.9 cm LVPW Systolic Thickness MM 1.3 cm Aortic Annulus Diameter 1.9 cm LA Ao Ratio MM 2.0 MV E Point Septal Separation 0.3 cm DOPPLER AV Peak Velocity 150.0 cm/s LVOT Peak Velocity 118.0 cm/s AV Area Cont Eq vti 3.7 cm squared AV Area Cont Eq pk 2.5 cm squared MV Area PHT 2.9 cm squared Mitral E to A Ratio 0.5 MV E' Velocity 10.0 cm/s Mitral E to MV E' Ratio 6.0 Mitral E to LV E' Lateral Ratio 5.9 Mitral E to LV E' Septal Ratio 6.1 TR Peak Velocity 238.0 cm/s TR Peak Gradient 22.6 mmHg TV Peak E Velocity 46.0 cm/s Right Atrial Pressure 3.0 mmHg Pulmonary Artery Systolic Pressu 25.7 mmHg PV Peak Velocity 117.0 cm/s RV Acceleration Time 0.2 s RV Ejection Time 0.4 s RV AcT/ET 0.4 FINDINGS Left Ventricle Normal left ventricular size and systolic function, EF 65 %. Mild left ventricular hypertrophy. No regional wall motion abnormalities. Grade I/IV diastolic dysfunction (abnormal relaxation filling pattern), normal to mildly elevated filling pressures. Right Ventricle The right ventricle is normal in size and function. Right Atrium The right atrium is normal in size. Left Atrium Mildly increased left atrial size. Mitral Valve Thickened mitral valve. Mild mitral annular calcification. Aortic Valve No gross abnormalities noted Tricuspid Valve No gross abnormalities noted Pulmonic Valve No gross abnormalities noted Pericardium Normal pericardium without effusion. Aorta Normal aortic annulus size. CONCLUSIONS Normal left ventricular size and systolic function, EF 65 %. Mild left ventricular hypertrophy. No regional wall motion abnormalities. Grade I/IV diastolic dysfunction (abnormal relaxation filling pattern), normal to mildly elevated filling pressures. Thickened mitral valve. Mild mitral annular calcification. There is no pericardial effusion. No previous study is available for comparison. Dr Marta Novak MD [facility] (Electronically Signed) Final Date: 12 February 2020 16:36 S
--- NOTE | 2020-02-12 12:54 | PC.NURSE ---
Patient reports episode of feeling left arm weakness and difficulty speaking. Speech is clear. Patient is alert and oriented. Facial symetry intact. Strenght test performed WNL. Patient reports complaints of headache rated 9/10. Discussed with patient safety and use of call light. Instructed patient to notify nurse when he starts having the weakness and difficulty speaking. Patient verbalizes understanding.
[2020-02-12] MEDS: acetaminophen 325 mg Tablet 650 MG PO (14:15)
[2020-02-12 15:00] VITALS: BP 168/93; PULSE 70; RESP 18; TEMP 36.3; O2SAT 96
--- NOTE | 2020-02-12 15:05 | PC.OT ---
OT EVALUATION/SCREEN COMPLETED. PATIENT DEMONSTRATED NO DEFICITS IN ADL/MRADL, MX STRENGTH OR BALANCE. IN FACT HE SHOWED US THAT HE COULD KNEEL DOWN ON THE FLOOR AND GET BACK UP INDEPENDENTLY. NO FURTHER OT REQUIRED.
[2020-02-12] MEDS: lisinopril 10 mg Tablet PO (15:14)
[2020-02-12] MEDS: carvedilol 3.125 mg Tablet PO (15:14)
--- NOTE | 2020-02-12 15:14 | PM.DCS ---
Discharge Providers Date of Admission: 02/11/20 19:36 Date of Discharge: February 12, 2020 Attending Provider at Admission: Sobeida Galeano MD Attending Provider at Discharge: Rae Rios MD Primary Care Provider: Glenys Sears MD Diagnoses at Discharge Discharge Diagnosis (1) Stroke-like symptoms: Status: Acute Problem details: -Patient presented with complaints of numbness and mild weakness in his left lower extremity, some slurring of his speech which seems to have resolved -Evaluated by Dr. 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, MRI negative for any acute changes -Echo done, report pending -Telemetry monitoring, no events noted, per review of vital signs was noted to be bradycardic which could be medication induced as he is on Coreg at home -Permissive hypertension x 24 hours now complete, can resume oral antihypertensives -Per discussion with patient and he seems to have well-controlled blood pressure at baseline, monitors this daily -On ASA, Plavix, statin -Noted lipid panel (2) HTN (hypertension): Status: Chronic Problem details: -Blood pressure improved without intervention -We will discontinue Coreg due to noted bradycardia, continue lisinopril Qualifiers: Hypertension type: essential hypertension Qualified Code(s): I10 - Essential (primary) hypertension (3) CKD (chronic kidney disease): Status: Chronic Problem details: -Renal function stable Qualifiers: Chronic kidney disease stage: unspecified stage Qualified Code(s): N18.9 - Chronic kidney disease, unspecified (4) Dyslipidemia: Status: Chronic Problem details: -Lipid panel noted, on statin Other Information Additional DC diagnoses/information: -Has history of prostate CA status post treatment, follows up with Dr. Mendoza -History of ischemic cardiomyopathy, prior stenting of LAD in 2011, follows up with Dr. Bowling -Erectile dysfunction Reason for Visit Reason for Visit: stroke s/s Hospital Course Hospital Course: Patient was admitted to the medical surgical floor after presenting with strokelike symptoms. He had been seen in the ER the day prior for similar symptoms. Code stroke was called and brought to the hospital and he was evaluated by Dr. Gauthier in the ER. He was not deemed an appropriate candidate for tPA secondary to window of presentation. NIH scale was 2 on presentation. He has had extensive work-up including CT head, CTA of the head and neck, MRI all of which are reported above. He also had an echo done, report pending which primary care provider can follow-up on. He did well with his therapy evaluations with no recommendation for continued skilled care. Patient reports that he is almost at his baseline and does have underlying dysarthria which is chronic since childhood. Blood pressure was untreated to allow for permissive hypertension x 24 hours. Once outside this window, blood pressure was appropriately treated. Discharge Summary: -Patient to follow up with primary care provider within 1 week Physical Exam Const: COMMON NORMALS: no acute distress, patient oriented x3 and alert GENERAL APPEARANCE: cooperative and comfortable NUTRITIONAL APPEARANCE: thin ORIENTATION/CONSCIOUSNESS: Yes awake HENMT: COMMON NORMALS: normocephalic, atraumatic, hearing grossly normal bilaterally and moist oral mucous membranes HEAD & SCALP: normocephalic and atraumatic Eye: COMMON NORMALS: Equal, round and reactive pupils present, EOMs intact bilaterally and conjunctivae normal CONJUNCTIVA: Yes conjunctivae normal PUPIL: Yes Equal, round and reactive pupils present Neck/C-Spine: COMMON NORMALS: full ROM GENERAL: Yes normal visual inspection and Yes trachea midline Chest: CHEST: Yes Symmetrical chest wall rise Resp: COMMON NORMALS: normal respiratory effort, No retractions, No use of accessory muscles and clear to auscultation bilaterally EFFORT & INSPECTION: Yes able to speak in complete sentences, Yes symmetric chest movement and No tachypneic AUSCULTATION: clear to auscultation bilaterally OTHER: -on RA Cardio: COMMON NORMALS: regular rate, regular rhythm, S1 normal heart sound present, S2 normal heart sound present and No murmurs present (Cardio) RATE: regular rate and bradycardic (intermittent) RHYTHM: regular rhythm HEART SOUNDS: S1 normal heart sound present and S2 normal heart sound present GI: COMMON NORMALS: Normal to inspection, nondistended, normoactive bowel sounds present, Soft to palpation and non-tender PALPATION: Yes Soft to palpation Extremity: COMMON NORMALS: normal to inspection, full ROM, no clubbing, cyanosis or edema and no pedal edema Neuro: COMMON NORMALS: patient oriented x3, moves all extremities, no focal motor deficits, no sensory deficits noted and gait normal SENSORIUM/ORIENTATION: Yes alert SPEECH: Other neuro speech findings (seems to have underlying dysarthria) MOTOR EXAM: 5/5 motor strength present throughout, Pronator motor function not present, no tremor noted and Normal motor muscle tone present throughout Psych: COMMON NORMALS: mental status grossly normal, Normal thought process present, cooperative, normal affect and speech normal SPEECH: Yes normal speech THOUGHT PROCESS: Normal thought process present Skin: COMMON NORMALS: no rashes or lesions noted, no jaundice, no petechiae and no mottling GENERAL SKIN EXAM: no rashes or lesions noted Discharge Data Data Completed and Pending: Completed Studies During Hospitalization Category Date Time Status CT angio headneck * 00881/23979 Urge nt Cat Scan 02/11/20 18:[address] head wo con* 7 0450 Stat Cat Scan 02/11/20 17:46 Completed MR head wo con* 7 0551 Routine MRI 02/12/20 08:00 Completed Pending at discharge Category Date Time Status CV echo complete* [id number] Routine Ultrasound 02/12/20 11:05 Ordered Labs from last 24 hours 02/12/20 02/11/20 02/11/20 04:23 21:12 18:34 WBC RBC Hgb Hct MCV MCH MCHC RDW Plt Count MPV Neut % (Auto) Lymph % (Auto) [place] % (Auto) Eos % (Auto) Baso % (Auto) Neut # (Auto) Lymph # (Auto) [place] # (Auto) Eos # (Auto) Baso # (Auto) Nucleated RBC % (a uto) Nucleated RBCs # PT INR APTT Sodium 140 Potassium 4.3 Chloride 103 Carbon Dioxide 26 Anion Gap 15.3 BUN 22 Creatinine 1.4 H Glucose 101 POC Glucose 141 Calculated Osmolal ity 287 Calcium 10.2 Total Bilirubin AST ALT Alkaline Phosphata se Total Protein Albumin Globulin Triglycerides Cholesterol LDL Cholesterol, C alc HDL Cholesterol LDL/HDL Ratio Cholesterol/HDL Ra petr TSH Urine Color Urine Appearance Urine pH Ur Specific Gravit y Urine Protein Urine Glucose (UA) Urine Ketones Urine Blood Urine Nitrate Urine Bilirubin Urine Urobilinogen Ur Leukocyte Linette ase Urine Opiates Scre en Negative Ur Barbiturates Sc reen Negative Ur Phencyclidine S crn Negative Ur Amphetamines Sc reen Negative U Benzodiazepines Scrn Negative Urine Cocaine Scre en Negative U Marijuana (THC) Screen Negative 02/11/20 02/11/20 02/11/20 18:34 18:04 18:04 WBC RBC Hgb Hct MCV MCH MCHC RDW Plt Count MPV Neut % (Auto) Lymph % (Auto) [place] % (Auto) Eos % (Auto) Baso % (Auto) Neut # (Auto) Lymph # (Auto) [place] # (Auto) Eos # (Auto) Baso # (Auto) Nucleated RBC % (a uto) Nucleated RBCs # PT INR APTT Sodium 138 Potassium 5.0 Chloride 102 Carbon Dioxide 25 Anion Gap 16.0 BUN 24 H Creatinine 1.4 H Glucose 95 POC Glucose Calculated Osmolal ity 283 L Calcium 10.2 Total Bilirubin 0.2 AST 17 ALT 10 Alkaline Phosphata se 78 Total Protein 7.2 Albumin 4.2 Globulin 3.0 Triglycerides 250 H Cholesterol 274 H LDL Cholesterol, C alc 189 H HDL Cholesterol 35 L LDL/HDL Ratio 5.40 H Cholesterol/HDL Ra petr 7.83 H TSH 4.61 H Urine Color Yellow Urine Appearance Clear Urine pH 6.5 Ur Specific Gravit y 1.010 Urine Protein Neg Urine Glucose (UA) Norm Urine Ketones Negative Urine Blood Neg Urine Nitrate Negative Urine Bilirubin Neg Urine Urobilinogen Norm Ur Leukocyte Linette ase Negative Urine Opiates Scre en Ur Barbiturates Sc reen Ur Phencyclidine S crn Ur Amphetamines Sc reen U Benzodiazepines Scrn Urine Cocaine Scre en U Marijuana (THC) Screen 02/11/20 02/11/20 18:04 18:04 WBC 7.7 RBC 4.98 Hgb 15.3 Hct 46.8 MCV 94.0 MCH 30.7 MCHC 32.7 RDW 11.8 L Plt Count 237 MPV 9.6 Neut % (Auto) 64.1 Lymph % (Auto) 23.5 [place] % (Auto) 8.3 Eos % (Auto) 3.3 Baso % (Auto) 0.7 Neut # (Auto) 4.9 Lymph # (Auto) 1.8 [place] # (Auto) 0.6 Eos # (Auto) 0.3 Baso # (Auto) 0.1 Nucleated RBC % (a uto) 0 Nucleated RBCs # 0.0 PT 11.70 INR 0.84 APTT 34.6 Sodium Potassium Chloride Carbon Dioxide Anion Gap BUN Creatinine Glucose POC Glucose Calculated Osmolal ity Calcium Total Bilirubin AST ALT Alkaline Phosphata se Total Protein Albumin Globulin Triglycerides Cholesterol LDL Cholesterol, C alc HDL Cholesterol LDL/HDL Ratio Cholesterol/HDL Ra petr TSH Urine Color Urine Appearance Urine pH Ur Specific Gravit y Urine Protein Urine Glucose (UA) Urine Ketones Urine Blood Urine Nitrate Urine Bilirubin Urine Urobilinogen Ur Leukocyte Linette ase Urine Opiates Scre en Ur Barbiturates Sc reen Ur Phencyclidine S crn Ur Amphetamines Sc reen U Benzodiazepines Scrn Urine Cocaine Scre en U Marijuana (THC) Screen Vitals: Last Vital Signs Temp 97.9 F 02/12/20 11:00 Pulse 65 02/12/20 11:00 Resp 19 H 02/12/20 11:00 BP 195/107 02/12/20 11:00 Pulse Ox 96 02/12/20 11:00 Discharge Plan Discharge Patient Disposition: Home, Self-Care Condition: Stable Prescriptions: New clopidogrel 75 mg Tablet 75 mg PO DAILY 30 Days Qty: 30 RF: 0 aspirin 81 mg Tablet,Delayed Release (Dr/Ec) 81 mg PO DAILY 30 Days Qty: 30 RF: 0 lorazepam 0.5 mg Tablet 0.5 mg PO BID PRN (Reason: Anxiety) Qty: 10 RF: 0 atorvastatin 40 mg Tablet 40 mg PO BEDTIME 30 Days Qty: 30 RF: 0 Continued sildenafil (pulm.hypertension) 20 mg tablet 20 mg PO DAILY PRN (Reason: prn) RF: 0 lisinopril 10 mg tablet 10 mg PO DAILY RF: 0 cetirizine 10 mg Tablet 5 mg PO DAILY RF: 0 Flonase Allergy Relief 50 mcg/actuation [place],Suspension 2 spray INTRANASAL DAILY RF: 0 Discontinued carvedilol 3.125 mg tablet 3.125 mg PO BID Qty: 180 RF: 3 Discharge Orders: Discharge Order (Routine); Ordered 02/12/20 Ordered By: Rae Rios Referrals: Glenys Sears MD [Primary Care Provider] - 4-7 days (Post hospital discharge follow up. Presented with stroke-like symptoms, workup negative, on DAPT, seen by neurology. ) Discharge Diet: Low Salt Discharge Activity: Increase activity as tolerated Patient Instructions: Self Care Measures After a Stroke (GEN), Stroke Stoplight Activity Restrictions/Additional Instructions: -Please seek medical attention immediately should any of your symptoms recur. Discharge Attestations Time Spent in Discharge Care*: greater than 30 min Specific Discharge Activities: Specific discharge activities: educating patient, educating and/or supporting family/caregiver (spoke with Jayshree Ramirez on the phone), discussing with mattress spring encaser/social workers/dc planners, documenting/other paperwork and evaluating patient/reviewing data Status at Discharge: Cognitive status at discharge: cognitively intact, Behavioral status at discharge: cooperative, Functional status at discharge: independent ambulation Overall status at discharge: patient is back to baseline Quality Metrics Clinical Quality Measures During this hospital stay, did patient experience: Stroke Contraindication to Antithrombotic: Antithrombotic prescribed Contraindication to Anticoagulation: Overlap treatment not indicated Contraindication to Statin: Statin prescribed Coding Level of Care Code Acute Event Coordinator for Chg Fwd Diagnoses Stroke-like symptoms R29.90 HTN (hypertension) I10 Hypertension type: essential hypertension CKD (chronic kidney disease) N18.9 Chronic kidney disease stage: unspecified stage Dyslipidemia E78.5
[2020-02-12 18:17] VITALS: BP 168/93; PULSE 70; RESP 18; TEMP 36.3; O2SAT 96
== END 2020-02-12 18:35 | disposition home or self-care (01) ==
LOC: ER 17:57 → MEDSURG 20:01
PROVIDERS: Family Medicine; Admitting Provider Internal Medicine; PCP Internal Medicine; Visit Provider Family Medicine
DX: R29.90 Unspecified symptoms and signs involving the nervous system (principal); R53.1 Weakness; I12.9 Hypertensive chronic kidney disease with stage 1 through stage 4 chronic kidney disease, or unspecified chronic kidney disease; N18.9 Chronic kidney disease, unspecified; E78.5 Hyperlipidemia, unspecified; R29.702 NIHSS score 2; E03.9 Hypothyroidism, unspecified; I25.2 Old myocardial infarction; Z87.11 Personal history of peptic ulcer disease; Z85.46 Personal history of malignant neoplasm of prostate; Z95.5 Presence of coronary angioplasty implant and graft
CPT/HCPCS: 12345; 36415; 36416; 70450; 70496; 70498; 70551; 80048; 80053; 80061; 80306; 81003; 82962; 84443; 85025; 85610; 85730; 92526; 92610; 93005; 93306; 96372; 96374; 96375; 97161; 99284; 99285; G0378; J0360; J1644; J2405; Q9967

== ENCOUNTER → 2020-05-16 11:09 | Outpatient (BNVA) | payer MEDICARE, SELFPAY | PROVIDERS: PCP Internal Medicine; Visit Provider Internal Medicine Cardiovascular Disease | DX: I25.5 Ischemic cardiomyopathy (principal); I25.10 Atherosclerotic heart disease of native coronary artery without angina pectoris; E78.5 Hyperlipidemia, unspecified; I42.9 Cardiomyopathy, unspecified; I10 Essential (primary) hypertension; I63.9 Cerebral infarction, unspecified | CPT/HCPCS: 80053; 83735; 83880 ==

== ENCOUNTER 2020-10-20 08:33 | Outpatient (CLI) | payer MEDICARE, SELFPAY ==
[2020-10-20 08:46] VITALS: BMI 22.8
--- NOTE | 2020-10-20 08:58 | ECG_ITS ---
[facility] Test Date: 2020-10-20 Pat Name: Rafa Ramirez Department: Room: Gender: Male Sr Vice President: : 1945 Requested By: Margaret Ramos Order Number: [id number] Aleksander MD: Margaret Ramos M.D. Interpretive Statements NAME OF STUDY: LEXISCAN SESTAMIBI STRESS TEST INDICATION: Coronary artery disease, CDL clearance PROCEDURE: At the baseline, the blood pressure was 214/115 mmHg, oxygen saturation 93% with a heart rate of 71 bpm. The electrocardiogram showed sinus rhythm, normal axis with possible old anterior infarct. Nonspecific ST depression. The Lexiscan was infused over a period of 20 seconds. A total of 0.4 milligrams of Lexiscan was infused. The stress phase was continued for a total of 5 minutes. Heart rate at the end of the stress phase was 92 bpm, oxygen saturation 97% with a blood pressure of 182/115 mmHg. The EKG at the peak infusion revealed sinus rhythm with no significant ST-T wave changes. The study was terminated due to protocol completion. Sestamibi was injected 20 seconds after the Lexiscan infusion. Blood pressure at the end of the recovery phase was 196/140 mmHg, oxygen saturation 98% with a heart rate of 89 beats per minute. CONCLUSION: 1. No significant EKG changes with the LexiScan infusion 2. No LexiScan induced chest pain or cardiac arrhythmia. 3. Baseline hypertension (214/115 mmHg) with normal blood pressure and heart rate response. 4. Sestamibi/sestamibi perfusion scan pending; see separate report. Electronically Signed On 10-26-2020 9:59:28 MATTRESS INSPECTOR by Margaret Ramos M.D. [email or web address]
--- NOTE | 2020-10-20 08:59 | NMCV_ITS ---
NM randa perf SPECT r/s* [id number] Rafa Ramirez Age: 75 Gender: M : 1945 Exam Date: 10/20/2020 09:13 Ordering Phys: Margaret Ramos MD ([email or web address]) Technologist: DORYS Dunham Exam Location: [facility] Indications: ASHD STRESS TEST Please see separate stress test report in [facility] for full findings IMAGE PROTOCOL Rest/Stress 1 Lexiscan Day Radiopharmaceutical Dose (mCi) Administration Site Administered by Rest: Tc-99m 10.8 IV DORYS Roman Sestamibi Stress:Tc-99m 32.6 IV DORYS Dunham Sestamiyoli Rest: 20-Oct-2020 60 Discovery 630 Stress: 20-Oct-2020 30 Discovery 630 0.4mg Lexiscan. Images obtained in supine and prone position. SPECT RESULTS Technical Quality: Good Raw Data Analysis: Normal Image Corrections: Patient motion artifact - motion correction applied to rest images. Summed Stress Score: 23 Summed Rest Score: 19 Summed Difference Score: 5 PERFUSION FINDINGS Moderate sized perfusion abnormality of moderate to severe severity of mid to apical anterior, mid anteroseptal, apical septal apical lateral, apical inferior and apical gutierres on rest images with some reversibility in mid anterolateral, apical septal, mid to apical anterior and apical gutierres on stress images. FUNCTIONAL RESULTS (calculated via Gated SPECT) Stress Image LV EF (%): 42 Stress EDV (mL):125 TID: 1.08 Stress ESV (mL):73 FUNCTIONAL FINDINGS: The left ventricle is normal in size. Transient Ischemia Dilatation of 1.1. There is mildly reduced left ventricular global systolic function. The left ventricular ejection fraction is reduced with a value of 42%. There is hypokinesis of mid to apical anterior and all apical gutierres. Increased end-diastolic volume. IMPRESSIONS 1. Moderate sized perfusion abnormality of moderate to severe severity of mid to apical anterior, mid anteroseptal, apical septal apical lateral, apical inferior and apical gutierres with some reversibility in mid anterolateral and apical gutierres on stress images. 2. 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 3. The left ventricular ejection fraction is reduced with a value of 42%. 4. There is hypokinesis of mid to apical anterior and all apical gutierres. 5. Scan indicates low to moderate risk for cardiac events. Margaret Ramos MD (Electronically Signed) Final Date: 24 October 2020 17:47 S
[2020-10-20] MEDS: hyDRALAzine 20 mg/mL INJ 1 mL 10 MG IVP (10:48)
[2020-10-20] MEDS: regadenoson 0.4 Mg/5 ml Syringe IVP (11:15)
[2020-10-20 11:27] VITALS: BP 196/114; PULSE 89
== END 2020-10-20 08:34 | disposition home or self-care (01) ==
PROVIDERS: PCP Internal Medicine; Visit Provider Internal Medicine Cardiovascular Disease
DX: I25.10 Atherosclerotic heart disease of native coronary artery without angina pectoris (principal)
CPT/HCPCS: 78452; 93017; A9500; J0360; J2785

== ENCOUNTER → 2020-11-09 10:17 | Outpatient (BNVA) | payer MEDICARE, SELFPAY | PROVIDERS: PCP Internal Medicine; Visit Provider Internal Medicine Cardiovascular Disease | DX: I25.5 Ischemic cardiomyopathy (principal); E78.5 Hyperlipidemia, unspecified; I25.10 Atherosclerotic heart disease of native coronary artery without angina pectoris | CPT/HCPCS: 80053; 80061; 83721; 83735; 83880; 85025 ==

== ENCOUNTER → 2021-01-09 10:04 | Outpatient (BNVA) | payer MEDICARE, SELFPAY | PROVIDERS: PCP Internal Medicine; Visit Provider Urology | DX: C61 Malignant neoplasm of prostate (principal); N52.9 Male erectile dysfunction, unspecified | CPT/HCPCS: 81003; 84153 ==

== ENCOUNTER → 2021-01-26 10:48 | Outpatient (BNVA) | payer MEDICARE, SELFPAY | PROVIDERS: PCP Internal Medicine; Visit Provider Internal Medicine Cardiovascular Disease | DX: I25.10 Atherosclerotic heart disease of native coronary artery without angina pectoris (principal); I25.5 Ischemic cardiomyopathy | CPT/HCPCS: 80048; 83735; 83880 ==

== ENCOUNTER → 2021-08-03 11:29 | Outpatient (BNVA) | payer MEDICARE, SELFPAY | PROVIDERS: PCP Internal Medicine; Referring Provider Internal Medicine Cardiovascular Disease; Visit Provider Internal Medicine Cardiovascular Disease | DX: Z01.818 Encounter for other preprocedural examination (principal); I25.10 Atherosclerotic heart disease of native coronary artery without angina pectoris; I21.9 Acute myocardial infarction, unspecified; I25.5 Ischemic cardiomyopathy; R06.02 Shortness of breath; R07.9 Chest pain, unspecified; Z95.5 Presence of coronary angioplasty implant and graft; Z20.822 Contact with and (suspected) exposure to COVID-19; I10 Essential (primary) hypertension | CPT/HCPCS: 80048; 85025; 85610; 87635 ==

== ENCOUNTER 2021-08-11 06:37 | Outpatient (CLI) | payer MEDICARE, SELFPAY ==
[2021-08-11] VITALS (31 sets, daily range): BP systolic 127–203; BP diastolic 73–128; PULSE 56–74; RESP 12–27; TEMP 36.9; O2SAT 93–98; BMI 24.7
--- NOTE | 2021-08-11 07:00 | XACV_ITS ---
Exam Room: 2 Ht: 173 cm Wt: 74 kg BSA: 1.89 m2 Gender: Male : 1945 Any Known Allergies: No known allergies Exam Priority: Routine Procedure(s): Procedure Description: Diagnostic procedure Procedure Description: Left Heart Catheterization Procedure Description: Coronary Angiography Marva AGUIRRE; Diagnostic Cath Status: Elective Diagnostic Findings * Left Main has no disease. * Circumflex has no disease. * Mid Left Anterior Descending: total occlusion, BHUPINDER: 0 flow. * Proximal Right Coronary Artery: severe 90% stenosis, BHUPINDER: 3 flow. * Distal Right Coronary Artery: significant 80% stenosis, BHUPINDER: 3 flow. * First Obtuse Marginal Branch Segment: severe 90% stenosis, BHUPINDER: 3 flow. * Second Obtuse Marginal Branch Segment: significant 80% stenosis, BHUPINDER: 3 flow. * Coronary angiography shows right dominance. Conclusions 1. For worsening of shortness of breath chest pressure angina and abnormal stress test patient underwent left heart cath. He was in noted to have chronically occluded mid LAD with prior stents. He was also noted to have high-grade lesion of obtuse marginal 1 and 2. Proximal and distal RCA was also has high-grade lesions.Patient will be referred for CABG advise viability study for LAD territory in order to decide CABG versus PCI if in case of nonviable LAD territory.. 2. There is total occlusion coronary artery disease with two vessel disease. Recommendations * Continue current medical management and risk factor modification.Advised viability study in LAD territory. Diagnostic RX Recommendation: CABG Pressures Phase:Rest AO : 145 / 86 ( 110 ) @ 8:14:00 AM 166 / 93 ( 124 ) @ 8:23:00 AM 165 / 93 ( 123 ) @ 8:23:00 AM LV : 168 / -11 / 12 @ 8:23:00 AM 169 / -11 / 13 @ 8:23:00 AM Valves Phase:DefaultPhase AV : 2.0 @ 10:31:41 AM AV Mean Gradient: 0.0 @ 10:31:41 AM Clinical Evaluation EBL: 5mL-10mL Procedural Details Procedure Consent Obtained. Carlos Woodward, CPT, RT scrubbing. Pre-Procedure Time Out. Identified patient by full name and date of as verbalized by the patient/guarantor. Does the consent match the physician's order: Yes. Accurate & Complete Informed Consent: Yes. Inpatient/Outpatient History & Physical on Chart: Yes. If H&P is completed, is and addenduem needed: Yes; If yes, is the addendum complete: Yes. Relevant Radiology Images available: Yes. Equipment: 6F - Radial. Cardiac Cath Pack. ACnavabi Manifold Kit Model BT 2000. Heparinized Saline (2 units/mL), 1000 mL bag. Visualize and Verify Site with Patient/Guarantor: N/A. The risks, benefits, and alternatives of sedation and/or procedure were discussed by physician. The patient agrees to continue. Procedure started. [facility] Clinical Fraility Score: 2: Well. 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 Chest Pain Symptom Assessment: Asymptomatic. Cardiovascular Instability: No. Correct patient, site and procedure confirmed by cath team. PERRLA. Strong, equal hand ged teacher bilaterally. Lungs clear x 5 lobes. IV Site on Arrival: 20 gauge in the right anticubital. IV Fluids: 0.9% NaCl at KVO. 400 mL infused prior to labor service representative. Pre Procedural Pulses: bilateral dorsalis pedis was 3+. Pre Procedural Pulses: bilateral posterior tibial was 3+. Pre Procedural Pulses: bilateral radial was 3+. Oxygen started at 2liters/min via nasal canula. right groin was prepped with chloroprep then draped in the usual sterile fashion. right radial was prepped with chloroprep then draped in the usual sterile fashion. Physician notified. Baseline sample Acquired. HR: 81 BPM. Physician arrived. Physician scrubbed in. Immediate Pre-Procedure Time Out. Correct Patient: Yes; Correct Procedure: Yes; Correct Site: Yes; Correct Patient Position: Yes; Correct Supplies: Yes; Dried Flammable Prep: Yes; Blood Products Available: No. Lidocaine 1% infiltrated to the right radial. Arterial access obtained. A 5 trinidadian TIG catheter in over the exchange wire. Multiple views taken of left coronary artery. Catheter redirected to the RCA. Multiple views taken of right coronary artery. Catheter removed over the exchange wire. A 5 trinidadian Angled Pig catheter in over wire. EDP Sample taken: LV Off; HR: 82 BPM; SpO2: 98%. EDP Sample taken: LV 168/-12,12; HR: 71 BPM; SpO2: 99%. Pullback taken: LV 169/-12,13; AO 166/93(124); Mean: 0mmHg, Peak to Peak: 2mmHg, SEP: 8sec/min; HR: 72 BPM; SpO2: 99%. Catheter removed over the exchange wire. Physician scrubbed out. A TR Band was successful obtaining hemostatsis at the Right Radial artery insertion site. TR band placed. Hemostasis obtained. Post Procedure: Pulses reassessed and unchanged. PERRLA. Strong, equal hand ged teacher bilaterally. No VTE prophylaxis required. Medication's Wasted: Lidocaine 1% = 18 mL. Medication's Wasted: Nitro = 49.8 mg. Medication's Wasted: Heparin = 1000 units. Total IV fluids: 100 mL. Post-op diagnosis: Multivessel CAD with chronically occluded LAD. Complications: none. Estimated blood loss: 5mL-10mL. Responsiveness - Normal response to verbal stimuli; alert and oriented, PERRLA. Airway - Unaffected, no intervention required; spontaneous ventilation. Circulation: W/N/L, pulses unchanged. Nausea/Vomiting: No. Procedure completed. Patient transferred by wheelchair to CPRU. Vital chart was stopped. Access Site Site: Right Radial artery Sheath Size: 6 Fr Hemostasis Method: TR Band Hemostasis Success: Successful Procedure Medications Start: 10:00 AM Stop: 10:00 AM Medication: Versed Amount: 1 mg Route: I.V. Start: 10:00 AM Stop: 10:00 AM Medication: Fentanyl Amount: 50 mcg Route: I.V. Start: 10:10 AM Stop: 10:10 AM Medication: Nitrogylcerin Amount: 200 mcg Route: I.A. Start: 10:13 AM Stop: 10:13 AM Medication: Heparin Amount: 5000 units Route: I.V. Start: 10:18 AM Stop: 10:18 AM Medication: Versed Amount: 1 mg Route: I.V. Start: 10:18 AM Stop: 10:18 AM Medication: Fentanyl Amount: 50 mcg Route: I.V. I, the attending physician, have reviewed and verified all procedure medications. Yes, all medications given per verbal order History/Risk Factors Hypertension: Yes Dyslipidemia: Yes Peripheral Arterial Disease (PAD): No Myocardial Infarction (AL): Yes Obesity: No Renal Disease: No Tobacco Use: Never Prior Interventions PCI: Yes CABG: No Valve Surgery: No Date of PCI: 12/15/2011 Report Signatures Finalized by Sobeida Durham MD on 08/22/2021 03:35 PM
--- NOTE | 2021-08-11 07:15 | PC.NURSE ---
Physician notified Pt has history of CKD. Creatinine 1.[address] Durham notified and received telephone orders for 250ml NS bolus and to run fluids at 100ml/hr until procedure. RBTO. Bolus initiated at this time.
[2021-08-11] MEDS: diphenhydrAMINE 50 mg Capsule PO (07:21)
--- NOTE | 2021-08-11 09:57 | P.HP_ITS ---
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 Stress test came back mild ischemia therefore we have been asked by his front end developer javascript html css and possible licensing authority to proceed with left heart cath in order to reassure before issuing the license. Patient is on Plavix and has taken his Plavix this morning. Patient has been explained all risk benefit and alternative for the procedure he understand the risk for major minor bleed urgent emergent bypass surgery he has CKD he is moderate risk for contrast-induced nephropathy. He understand risk for worsening of renal function/failure leading to temporary or permanent dialysis. He understand risk for stroke vascular or coronary artery bypass surgery in case of emergency. He would like to proceed with that with Medications/Allergies* Home Medications Medication Instructions Recorded Confirmed Type cetirizine 10 mg tablet 5 mg PO DAILY 01/09/21 08/10/21 History fluticasone propionate 50 2 spray INTRANASAL .prn g 01/09/21 08/10/21 History mcg/actuation nasal spray,suspension coenzyme Q10 75 mg capsule 200 mg PO DAILY cap 07/20/21 08/10/21 History ezetimibe 10 mg tablet 5 mg PO DAILY tab 07/20/21 08/10/21 History lisinopril 20 mg tablet 10 mg PO DAILY tab 07/20/21 08/10/21 History Allergies/Adverse Reactions Allergy/AdvReac Type Severity Reaction Status Date / Time No Known Allergies Allergy Verified 07/20/21 09:44 Pertinent History/Comorbid Conditions* Medical History (Updated 05/16/20 @ 11:07 by Margaret Ramos MD) ASHD (arteriosclerotic heart disease) CKD (chronic kidney disease) -Renal function stable Dyslipidemia -Lipid panel noted, on statin Erectile dysfunction HTN (hypertension) -Blood pressure improved without intervention -We will discontinue Coreg due to noted bradycardia, continue lisinopril Hypothyroidism Ischemic cardiomyopathy Myocardial infarction Prostate cancer PUD (peptic ulcer disease) Surgical History (Updated 02/11/20 @ 19:30 by Sobeida Galeano MD) Hx of heart artery stent LAD stent Hx of hernia repair S/P cataract extraction S/P tonsillectomy Family History (Updated 01/07/20 @ 08:47 by DARYA Herrera) Father, PROSTATE CANCER Mother, OVARIAN CANCER Cancer Father Mother Social History Smoking and tobacco status: never smoked Alcohol intake: never Adopted: No Caregiver/support person: No Lives independently: No Household members: spouse Marital status: Current occupational status: retired History of recent travel: No Current gender identity: Male Pertinent Exam Findings alert, oriented x 3, clear to auscultation bilaterally and regular rate & rhythm Conscious Sedation Assessment PATIENT ASSESSED PRIOR TO SEDATION, WITH NO CHANGE NOTED: Yes AIRWAY EVAL/ANESTHESIA PLAN: normal airway, ASA II and Risks, benefits & alternatives of sedation and/or procedure discussed Recommendations Surgery/Procedure today Coding Level of Care Code Acute Refinery Technician for Hannah Saunders
--- NOTE | 2021-08-11 10:30 | PC.NURSE ---
Received patient from shipyard laborer. Pt awake and drowsy. Pt arouses to verbal/ touch stimuli. reports no pain. Pt placed on bedside clinical research monitor. TR band in place containing 16ml or air to right wrist. No signs of hematoma. Radial pulse palpable. at bedside. will continue to monitor.
--- NOTE | 2021-08-11 11:35 | PC.NURSE ---
3ml air removed from right radial TR band. No signs of bleeding/oozing. No signs of hematoma. radial pulse palpable. Pt educated on right arm weight restrictions, verbalized understanding.
--- NOTE | 2021-08-11 11:55 | PC.NURSE ---
3ml air removed from right radial TR band. Site asymptomatic. Will continue to monitor.
--- NOTE | 2021-08-11 12:00 | PC.NURSE ---
2ml air removed from right radial TR band. Site asymptomatic. Will continue to monitor.
--- NOTE | 2021-08-11 12:20 | PC.NURSE ---
3ml air removed from right radial TR band. Site asymptomatic. Will continue to monitor. Pt educated on reportable signs and symptoms. Verbalized understanding.
--- NOTE | 2021-08-11 12:30 | PC.NURSE ---
3 ml air removed from TR band. site asymptomatic. will continue to monitor.
--- NOTE | 2021-08-11 12:45 | PC.NURSE ---
Remaining 3ml removed from TR band, TR band deflated. oozing noted, TR band taken off to assess puncture site. Slow steady trickle of blood from site. No sign of hematoma. TR band placed back to patient wrist and applied 5ml air. Will reassess in 30 minutes.
--- NOTE | 2021-08-11 13:15 | PC.NURSE ---
3 ml air removed from TR band. Site continues to have steady ooze. 5ml air placed back into TR band. No sign of hematoma. Will continue to monitor.
--- NOTE | 2021-08-11 14:15 | SUR.PHASEII ---
This nurse took over care of Mr. Ramirez. Bedside report received from Kerri Mack RN. Will start letting the air out again at 1445.
--- NOTE | 2021-08-11 14:40 | SUR.PHASEII ---
The patient's spouse came to the nurses station stating that the patient's wrist was bleeding. On arrival to the room the TR band had a slow trickle of blood oozing from it. 8ml of air was required to stop the ooze, making a total of 16ml of air total. Dr. Durham was notified with no new orders at this time.
--- NOTE | 2021-08-11 15:04 | SUR.PHASEII ---
Report called to KIMANI Neri. Patient then transferred to room 106 via wheelchair. Spouse was present with all the patient's belongings. Dr. Durham was notified of the transfer.
--- NOTE | 2021-08-11 16:00 | PC.NURSE ---
Phone call placed to Dr. Durham regarding elevate BP since arrival on unit at 1300. Dr. Durham asked if patient had home meds today and I answered no as they were not ordered. Dr. Durham to place orders.
--- NOTE | 2021-08-11 16:30 | PC.NURSE ---
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 Explained concern regarding patient's continued hypertension. Patient states I know my own body . Informed patient I had contacted Dr. Durham regarding BP and that he would order medicine for BP control. Patient states he can order, but Im not going to take it .
--- NOTE | 2021-08-11 17:30 | PC.NURSE ---
Call placed to Dr. Durham regarding patient's elevated BP and patient desire to leave. Dr. Durham advised patient's BP is significantly high and he should be avised to stay. Patient has been advised the physician recomends him to sty so that we can manage his BP.
== END 2021-08-11 18:00 | disposition home or self-care (01) ==
LOC: CCL 11:02 → CSU 17:37
PROVIDERS: PCP Internal Medicine; Visit Provider Internal Medicine Cardiovascular Disease
DX: I25.10 Atherosclerotic heart disease of native coronary artery without angina pectoris (principal); I25.82 Chronic total occlusion of coronary artery; R94.39 Abnormal result of other cardiovascular function study; Z95.5 Presence of coronary angioplasty implant and graft; I25.2 Old myocardial infarction; I12.9 Hypertensive chronic kidney disease with stage 1 through stage 4 chronic kidney disease, or unspecified chronic kidney disease; N18.9 Chronic kidney disease, unspecified; E78.5 Hyperlipidemia, unspecified; E03.9 Hypothyroidism, unspecified; Z85.46 Personal history of malignant neoplasm of prostate; Z87.11 Personal history of peptic ulcer disease
CPT/HCPCS: 93452; C1769; C1887; C1894; G0378; J1644; J2250; J3010; J3490; J7030; Q0163; Q9967

== ENCOUNTER → 2021-08-22 10:26 | Outpatient (BNVA) | payer MEDICARE, SELFPAY | PROVIDERS: PCP Internal Medicine; Visit Provider Nurse Practitioner Family | DX: I25.10 Atherosclerotic heart disease of native coronary artery without angina pectoris (principal) | CPT/HCPCS: 80048 ==

== ENCOUNTER → 2021-11-01 14:32 | Outpatient (BNVA) | payer MEDICARE, SELFPAY | PROVIDERS: PCP Internal Medicine; Visit Provider Internal Medicine Cardiovascular Disease | DX: I25.5 Ischemic cardiomyopathy (principal); I42.9 Cardiomyopathy, unspecified; I25.10 Atherosclerotic heart disease of native coronary artery without angina pectoris; I12.9 Hypertensive chronic kidney disease with stage 1 through stage 4 chronic kidney disease, or unspecified chronic kidney disease; N18.9 Chronic kidney disease, unspecified; E78.5 Hyperlipidemia, unspecified; I51.3 Intracardiac thrombosis, not elsewhere classified; R06.02 Shortness of breath; I25.2 Old myocardial infarction | CPT/HCPCS: 99215 ==

== ENCOUNTER → 2021-11-09 10:19 | Outpatient (BNVA) | payer MEDICARE, SELFPAY | PROVIDERS: PCP Internal Medicine; Visit Provider Internal Medicine | DX: Z20.822 Contact with and (suspected) exposure to COVID-19 (principal); I25.10 Atherosclerotic heart disease of native coronary artery without angina pectoris; I25.5 Ischemic cardiomyopathy; R06.02 Shortness of breath; E78.5 Hyperlipidemia, unspecified | CPT/HCPCS: 80053; 80061; 83721; 85025; 85610; 87635 ==

== ENCOUNTER 2021-11-13 06:01 | Outpatient (CLI) | payer MEDICARE, SELFPAY ==
[2021-11-10 11:32] VITALS: BMI 24.9
[2021-11-13] VITALS (65 sets, daily range): BP systolic 116–169; BP diastolic 69–113; PULSE 48–85; RESP 15–32; TEMP 36.1–36.7; O2SAT 88–100; BMI 24.9
[2021-11-13] MEDS: diphenhydrAMINE 50 mg Capsule PO (06:15)
--- NOTE | 2021-11-13 07:00 | XACV_ITS ---
Ht: 173 cm Wt: 74 kg BSA: 1.90 m2 Gender: Male : 1945 Any Known Allergies: No known allergies Exam Priority: Routine Procedure(s): Procedure Description: Diagnostic procedure Procedure Description: PCI procedure Procedure Description: Drug Eluting Coronary Stent Procedure Description: PTCA Procedure Description: Miscellaneous Procedure Description: ACT Procedure Description: Coronary Angiography Diagnostic Cath Status: Elective Diagnostic Findings * INDICATION: Staged PCI for multivessel CAD. Patient was evaluated by CT surgery and after heart team discussion decision was to undergo PCI of OM1, OM 2 and RCA. * Left Main has no disease. * Circumflex has no disease. * Proximal Left Anterior Descending: total occlusion, BHUPINDER: 0 flow. * Mid Right Coronary Artery: severe 90% stenosis, BHUPINDER: 3 flow. * First Obtuse Marginal Branch Segment to First Obtuse Marginal Branch Segment: significant 80% stenosis, BHUPINDER: 3 flow. * Second Obtuse Marginal Branch Segment: obstructive 70% stenosis, BHUPINDER: 3 flow. * Coronary angiography shows right dominance. PCI Status: Elective PCI Indication: Staged PCI Interventional Findings * Procedure detail: Engage left main artery with XB 3.5 guide catheter. Run-through guidewire was used to cross into OM1. IV heparin was used to maintain ACT over 250S. We used 2.5 x 12 mm semicompliant balloon to predilate the stenosis. This was followed by placement of 2.75 x 15 mm resolute Lobo drug-eluting stent. We then turned our attention to OM 2. 2.5 x 12 mm compliant balloon was used to dilate the stenosis. This was followed by placement of 2.75 x 15 mm resolute [place] stent. Distal edge dissection was noted. We placed a second stent measuring 2.25 x 18 mm overlapping with the initial stent. At this time left-sided final angiogram was performed that showed excellent stent expansion, no residual stenosis and BHUPINDER-3 flow. We then turned our attention to RCA stenosis. We used AL 0.75 guide catheter engaged RCA. 0.014 run-through guidewire was used to cross the stenosis. We predilated the stenosis with 2.5 x 12 mm semicompliant balloon. This was followed by placement of 2.75 x 15 mm resolute [place] drug-eluting stent. We postdilated the stent with 3.0 x 8 mm NC balloon. At this time distal edge dissection was noted in the RCA. We placed a second stent measuring 2.75 x 15 mm. This covered the dissection. Patient had excellent BHUPINDER-3 flow and no residual stenosis. Guidewire and guide catheter were removed. Patient left the Sql Dba in a stable condition. * Mid Right Coronary Artery: 90% stenosis treated with a AB TREK 2.50X12 RX BALLOON, MDT R LOBO 2.75X15 ANDRES, MDT NC EUPHORA RX [id number] BALLOON, and MDT R LOBO 2.75X12 ANDRES. 0% residual stenosis, BHUPINDER: 3 flow. * First Obtuse Marginal Branch Segment to First Obtuse Marginal Branch Segment: 80% stenosis treated with a AB TREK 2.50X12 RX BALLOON, and MDT R LOBO 2.75X15 ANDRES. 0% residual stenosis, BHUPINDER: 3 flow. * Second Obtuse Marginal Branch Segment: 70% stenosis treated with a AB TREK 2.50X12 RX BALLOON, MDT R LOBO 2.75X15 ANDRES, and MDT R LOBO 2.25X18 ANDRES. 0% residual stenosis, BHUPINDER: 3 flow. Conclusions 1. Severe multivessel Coronary artery disease s/p PCI of OM 1, OM2 and RCA. 2. Mid Right Coronary Artery was treated with a Balloon, Drug Eluting Stent, Balloon, and Drug Eluting Stent. 3. First Obtuse Marginal Branch Segment to First Obtuse Marginal Branch Segment was treated with a Balloon, and Drug Eluting Stent. 4. Second Obtuse Marginal Branch Segment was treated with a Balloon, Drug Eluting Stent, and Drug Eluting Stent. Recommendations * Transfer to [facility]. * Continue aspirin and Plavix for atleast 1 year. * High intensity statin therapy. * Outpatient cardiology follow up in 1-2 weeks. Interventional RX Recommendation: PCI w/o planned CABG Diagnostic RX Recommendation: PCI w/o planned CABG Anticoagulation: Heparin Pressures Phase:Rest AO : 135 / 80 ( 94 ) @ 8:59:00 AM 112 / 61 ( 84 ) @ 9:06:00 AM 109 / 67 ( 87 ) @ 9:22:00 AM 117 / 69 ( 87 ) @ 9:29:00 AM 122 / 63 ( 88 ) @ 9:54:00 AM Clinical Evaluation EBL: 5mL-10mL Procedural Details Procedure Consent Obtained. Pre-Procedure Time Out. Identified patient by full name and date of as verbalized by the patient/guarantor. Does the consent match the physician's order: Yes. Accurate & Complete Informed Consent: Yes. Inpatient/Outpatient History & Physical on Chart: Yes. If H&P is completed, is and addenduem needed: No; If yes, is the addendum complete: N/A. Visualize and Verify Site with Patient/Guarantor: N/A. Relevant Radiology Images available: N/A. Pre-op teaching completed and patient verbalized understanding. The risks, benefits, and alternatives of sedation and/or procedure were discussed by physician. The patient agrees to continue. Procedure started. [facility] Clinical Fraility Score: 3: Managing Well. Sql Dba Indications: Other, [place], staged PCI, abnormal stress test. Chest Pain Symptom Assessment: Atypical Angina. Cardiovascular Instability: No. Correct patient, site and procedure confirmed by cath team. PERRLA. Strong, equal hand hybrid tester bilaterally. Lungs clear x 5 lobes. IV Site on Arrival: 20 gauge in the right forearm. IV Fluids: 0.9% NaCl at KVO. 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 Pre Procedural Pulses: bilateral dorsalis pedis was 3+. Pre Procedural Pulses: bilateral posterior tibial was 3+. Pre Procedural Pulses: bilateral radial was 3+. Oxygen started at 2liters/min via nasal canula. bilateral groins was prepped with chloroprep then draped in the usual sterile fashion. Physician arrived. Equipment: 6F - Femoral. Baseline sample Acquired. HR: 63 BPM. Cardiac Cath Pack. ACIST Manifold Kit Model BT 2000. Heparinized Saline (2 units/mL), 1000 mL bag. Kit, Micropuncture. Physician scrubbed in. Immediate Pre-Procedure Time Out. Correct Patient: Yes; Correct Procedure: Yes; Correct Site: Yes; Correct Patient Position: Yes; Correct Supplies: Yes; Dried Flammable Prep: Yes; Blood Products Available: N/A;. Lidocaine 1% infiltrated to the right groin. Arterial access obtained with micropuncture set. Sheath upsized to a 7 Fr. 6 gibraltarian XB 3.5 guide catheter was inserted over the wire. Multiple views taken of left coronary artery. Runthrough guidewire was advanced through the guide catheter to lesion in the OM 1. Inventory is CRD 6 FR XB 3.5 GUIDE. Inflation number : 1 A AB TREK 2.50X12 RX BALLOON was prepped and advanced across the 1st Ob Sarah , then inflated to 12 GENE for 0:04 seconds. Inflation number: 2 The AB TREK 2.50X12 RX BALLOON was reinflated across the 1st Ob Sarah, to 12 GENE for 0:10 seconds. Balloon out. Inflation Number : 3 A MDT R LOBO 2.75X15 ANDRES -Lot Number# [id number] exp date 04/27/2024 was prepped and advanced across the 1st Ob Sarah. The stent was deployed at 12 GENE for 0:16 seconds. Stent balloon out over wire. Runthrough repositioned to OM 2. Inflation number: 1 The AB TREK 2.50X12 RX BALLOON was reinflated across the 2nd Ob Sarah, to 12 GENE for 0:15 seconds. Balloon out. Inflation Number : 2 A MDT R LOBO 2.75X15 ANDRES -Lot Number# [id number] exp date 04/27/2024 was prepped and advanced across the 2nd Ob Sarah. The stent was deployed at 12 GENE for 0:25 seconds. Stent balloon out over wire. Inflation Number : 3 A MDT R LOBO 2.25X18 ANDRES -Lot Number# [id number] exp date 01/26/2024 was prepped and advanced across the 2nd Ob Sarah. The stent was deployed at 12 GENE for 0:19 seconds. Inflation number: 4 The stent balloon was then re-inflated across the 2nd Ob Sarah to 12 GENE for 0:09 seconds. Wire out. Stent balloon out over wire. Results checked. ACT drawn. Results 376 seconds. Therapeutic limits - pre-heparin administration 90-150 seconds and monitoring heparin during a vascular procedure >250 seconds. Inventory is CRD 6FR AL .75 GUIDE. Guide catheter out. 6 gibraltarian AL 0.75 guide catheter was inserted over the wire. Multiple views taken of right coronary artery. Runthrough guidewire was advanced through the guide catheter to lesion in the mid RCA. Inflation number: 1 The AB TREK 2.50X12 RX BALLOON was reinflated across the Mid RCA, to 14 GENE for 0:21 seconds. Balloon out. Inflation Number : 2 A MDT R LOBO 2.75X15 ANDRES -Lot Number# [id number] exp date 04/27/2024 was prepped and advanced across the Mid RCA. The stent was deployed at 14 GENE for 0:22 seconds. Inflation number : 3 A MDT NC EUPHORA RX [id number] BALLOON was prepped and advanced across the Mid RCA , then inflated to 18 GENE for 0:23 seconds. Balloon out. Inflation Number : 4 A MDT R LOBO 2.75X12 ANDRES -Lot Number# [id number] exp date 08/02/2024was prepped and advanced across the Mid RCA. The stent was deployed at 12 GENE for 0:16 seconds. Stent balloon out over wire. Wire out. ACT drawn. Results 354 seconds. Therapeutic limits - pre-heparin administration 90-150 seconds and monitoring heparin during a vascular procedure >250 seconds. Guide catheter out. Long 7 fr sheath exchanged for short 7 fr sheath. Physician scrubbed out. A Suture was successful obtaining hemostatsis at the Right Femoral artery insertion site. Sheath(s) sutured into position with 2-0 silk and sterile 4x4's and Op-site applied over the site. No oozing or signs and symptoms of hematoma noted. Arterial sheath flushed and connected to tranducer and pressure bag with heparinized saline. Post Procedure: Pulses reassessed and unchanged. PERRLA. Strong, equal hand hybrid tester bilaterally. No VTE prophylaxis required. Post-op diagnosis: multi vessel CAD. PCI Indication: CAD (without ischemic symptoms). Complications: none. Estimated blood loss: 5mL-10mL. Contrast type used: Visipaque 320 mgI/mL, 500 mL bottle. Total IV fluids: 350 mL. Medication's Wasted: Nitro = 49.3 mg. Responsiveness - Normal response to verbal stimuli; alert and oriented, PERRLA. Airway - Unaffected, no intervention required; spontaneous ventilation. Circulation: W/N/L, pulses unchanged. Nausea/Vomiting: No. Procedure completed. Patient transferred by bed to 1st floor. Vital chart was stopped. Access Site Site: Right Femoral artery Sheath Size: 6 Fr Hemostasis Method: Suture Hemostasis Success: Successful Procedure Medications Start: 8:01 AM Stop: 8:01 AM Medication: Heparin Amount: 7000 units Route: I.V. Start: 8:21 AM Stop: 8:21 AM Medication: Nitrogylcerin Amount: 200 mcg Route: I.C. Start: 8:21 AM Stop: 8:21 AM Medication: Heparin Amount: 2000 units Route: I.V. Start: 7:52 AM Stop: 7:52 AM Medication: Versed Amount: 1 mg Route: I.V. Start: 7:52 AM Stop: 7:52 AM Medication: Fentanyl Amount: 50 mcg Route: I.V. Start: 8:41 AM Stop: 8:41 AM Medication: Nitrogylcerin Amount: 200 mcg Route: I.C. Start: 8:49 AM Stop: 8:49 AM Medication: Nitrogylcerin Amount: 200 mcg Route: I.C. Start: 8:51 AM Stop: 8:51 AM Medication: Nitrogylcerin Amount: 100 mcg Route: I.C. I, the attending physician, have reviewed and verified all procedure medications. Yes, all medications given per verbal order History/Risk Factors Hypertension: Yes Dyslipidemia: Yes Peripheral Arterial Disease (PAD): No Myocardial Infarction ([place]): Yes Obesity: No Renal Disease: No Prior Interventions PCI: Yes CABG: No Valve Surgery: No Date of PCI: 12/15/2011 Report Signatures Finalized by Quincy Gray MD on 11/27/2021 05:37 PM
--- NOTE | 2021-11-13 07:41 | P.HP_ITS ---
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 of LAD stents PLANNED PROCEDURE: Operation Date: 11/13/21 07:00 Proposed Procedures p Cardiac Catheterization(Left) - Quincy Gray M.D Percutaneous coronary intervention Medications/Allergies* Home Medications Medication Instructions Recorded Confirmed Type fluticasone propionate 50 2 spray INTRANASAL .prn g 01/09/21 11/10/21 History mcg/actuation nasal spray,suspension (Flonase Allergy Relief) coenzyme Q10 75 mg capsule (Ultra 200 mg PO DAILY cap 07/20/21 11/10/21 History CoQ10) cetirizine 10 mg tablet 10 mg PO DAILY tab 11/01/21 11/10/21 History Allergies/Adverse Reactions Allergy/AdvReac Type Severity Reaction Status Date / Time No Known Allergies Allergy Verified 11/10/21 10:04 Current Medications: Generic Name Dose Route Start Last Admin Trade Name Freq PRN Reason Stop Dose Admin Sodium Chloride 1,000 mls @ 50 mls/hr 11/13/21 06:00 11/13/21 06:49 Sodium Chloride 0.9% IV 11/14/21 01:59 Not Given .Q20H ONE Pertinent History/Comorbid Conditions* Medical History (Updated 11/04/21 @ 20:27 by Margaret Ramos MD) ASHD (arteriosclerotic heart disease) CKD (chronic kidney disease) -Renal function stable CVA (cerebral vascular accident) Dyslipidemia -Lipid panel noted, on statin Erectile dysfunction HTN (hypertension) -Blood pressure improved without intervention -We will discontinue Coreg due to noted bradycardia, continue lisinopril Hypothyroidism Ischemic cardiomyopathy Myocardial infarction Prostate cancer PUD (peptic ulcer disease) Surgical History (Updated 08/12/21 @ 00:00 by ) Hx of heart artery stent LAD stent Hx of hernia repair S/P cataract extraction S/P tonsillectomy Family History (Updated 01/07/20 @ 08:47 by DARYA Herrera) Father, PROSTATE CANCER Mother, OVARIAN CANCER Cancer Father Mother Social History Smoking and tobacco status: never smoked Alcohol intake: never Adopted: No Caregiver/support person: No Lives independently: No Household members: spouse Marital status: Current occupational status: retired History of recent travel: No Current gender identity: Male Coding Level of Care Code Acute 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
--- NOTE | 2021-11-13 07:42 | W.PM.OPSUD ---
Surgery/Procedure H&P Update DATE OF PROCEDURE: November 13, 2021 DATE H&P PERFORMED: 11/01/21 H&P UPDATE INFORMATION: I have reviewed H&P completed within last 30 days, I have examined patient prior to procedure and No changes to prior documentation PREOP DIAGNOSIS: Dyspnea on exertion/ Multivessel Coronary artery disease PRIMARY INDICATION FOR PROCEDURE: Dyspnea on exertion/ Multivessel Coronary artery disease PLANNED PROCEDURE: Operation Date: 11/13/21 07:00 Proposed Procedures p Cardiac Catheterization(Left) - Quincy Gray M.D Staged Percutaneous coronary intervention PATIENT REASSESSED PRIOR TO SEDATION, WITH NO CHANGE NOTED: Yes PHYSICAL EXAM: alert, oriented x 3, clear to auscultation bilaterally and regular rate & rhythm AIRWAY EVAL/ANESTHESIA PLAN: ASA III, Monitored Anesthesia, Local Anesthesia, Risks, benefits & alternatives of sedation and/or procedure discussed and Patient agrees to continue as planned
[2021-11-13] MEDS: sodium chloride 0.9% 1,000 ML 75 ML IV (10:26)
[2021-11-13] MEDS: clopidogrel 300 mg Tablet PO (10:27)
[2021-11-13] MEDS: aspirin 81 mg EC Tablet PO (10:27)
--- NOTE | 2021-11-13 10:39 | PC.CHAP ---
Pastoral Care Encounter/Spiritual Assessment Type of Contact [] Declined recenterer visit [] Patient/Family/Request visit [] Outpatient visit [] Follow-up visit [] Physician referral [] Code/Alert [x] Routine visit [] Staff referral [] Actively dying [] Patient sleeping [x] Family support [] [] Out of room [] Palliative care [] [] Receiving care in room [] Pre-surgical visit [] Trauma [] Long length of stay [] ICU visit [] Other: Relational/Emotional Strength [] Patient feels connected with others/family/visitors/staff [] Distress [] Loneliness/isolation [] Abandonment Spirituality of Patient [] Person of Jessika [] Attends Denominational of their Jessika [] Believes in Prayer [] Reads Bible or Episcopal materials [] There are Spiritual issues to be addressed Automotive Refinisher Interventions [x Prayer x] Active listening [x] Non-anxious presence [x] Spiritual/emotional support [] Crisis/trauma care [] Spiritual counseling [] Bereavement support [] Provided bereavement packet [] Provided Bible/devotional materials [] Provided toy/stuffed animal, coloring book to patient or family member [] Provided Communion [] Anointing/[place] [] Salvation [x] Completed spiritual assessment [] Other: Impact on Illness or Injury [] Angry [] Fearful [] Anxious [] Often cries [] Exhaustion [] Unable to work [] Unable to attend episcopalian [] Unable to walk/stand [] Unable to read [] Unable to drive [] Unable to eat/drink [] Unable to sleep [] Unable to be with family [] Patient intubated [] Other: Summary Time spent with patient 5 min
[2021-11-13 12:39] LABS: Partial Thromboplastin Time > 250.0 SECONDS (23.9-36.7)
--- NOTE | 2021-11-13 13:09 | PC.NURSE ---
output of urine is 410ml.
--- NOTE | 2021-11-13 13:11 | PC.NURSE ---
Patient is currently resting in bed, no needs at this time.
[2021-11-13 14:56] LABS: Partial Thromboplastin Time 112.8 SECONDS (23.9-36.7)
[2021-11-13 17:13] LABS: Partial Thromboplastin Time 42.9 SECONDS (23.9-36.7)
--- NOTE | 2021-11-13 17:19 | PC.NURSE ---
Rounded on patient to find his arm was bleeding, alerted nurse, patient has no other needs.
[2021-11-13] MEDS: carvedilol 3.125 mg Tablet PO (17:42)
[2021-11-13] MEDS: hyDRALAzine 50 mg Tablet PO (17:42)
--- NOTE | 2021-11-13 18:17 | PC.NURSE ---
Nurse at bedside, patient has no needs at this time.
[2021-11-13] MEDS: fentaNYL 50 mcg/mL INJ 2mL IVP (18:34)
--- NOTE | 2021-11-13 19:44 | PC.NURSE ---
Around 1840: PTT 42.9. Pulled sheath to patients right groin, held pressure 30 min. Dressed site with 4x4 and transparent dressing. No drainage or hematoma noted. Vitals stable. Patient tolerated procedure well. Will continue to monitor.
[2021-11-14] VITALS (32 sets, daily range): BP systolic 130–172; BP diastolic 70–102; PULSE 66–100; RESP 6–22; TEMP 36.4; O2SAT 90–99
[2021-11-14 04:22] LABS: Basophils # 0.1 10^3/uL (0.0-0.1); Basophils % 0.5 %; Eosinophils # 0.1 10^3/uL (0.0-0.8); Eosinophils % 0.6 %; Hematocrit 40.7 % (42.0-52.0); Hemoglobin 13.5 g/dL (11.7-16.6); Lymphocytes % 9.3 %; Mean Corpuscular HGB Conc 33.2 g/dL (30.0-36.0); Mean Corpuscular Hemoglobin 30.8 pg (28.0-34.0); Mean Corpuscular Volume 92.7 fl (80-94); Mean Platelet Volume 9.1 fL (7.4-10.4); Monocytes % 8.5 %; Neutrophils # 9.08 10^3/uL (1.8-7.7); Neutrophils % 80.9 %; Nucleated Red Blood Cells % 0 %; Platelet Count 244 10^3/cmm (130-400); Red Blood Count 4.39 10^6/uL (4.1-5.3); White Blood Count 11.2 10^3/uL (4.0-10.0)
[2021-11-14 04:39] LABS: Anion Gap 13.6 (5-19); Blood Urea Nitrogen 21 mg/dL (8-23); Calcium 9.4 mg/dL (8.5-10.5); Carbon Dioxide 21 mmol/L (22-29); Chloride 105 mmol/L (98-107); Glucose 113 mg/dL (65-115); Osmolality Calculated 284 mOsm/kg (285-295); Potassium 4.6 mmol/L (3.5-5.1); Sodium 135 mmol/L (136-145)
--- NOTE | 2021-11-14 07:42 | P.SS_ITS ---
Short Stay Summary Providers Date of Admit/Discharge: 11/13/21 Attending Provider: Quincy Gray M.D Primary Care Provider: Glenys Sears MD Chief Complaint: 06606 i25.5 Ischemic cardiomyopathy HPI History of Present Illness Rafa Ramirez is a 76 year old male past medical history of ischemic cardiomyopathy, CAD with LAD PCI in the past and now occluded stent, and a recent abnormal stress test. Coronary angiogram showed severe multivessel coronary artery disease including AGRICULTURAL SYSTEMS SPECIALIST of LAD, severe OM1, OM 2 and RCA stenosis. Patient underwent CT surgery evaluation and after heart team approach and discussion with patient, plan is to perform multivessel PCI of OM1, OM 2 and RCA and medically treat AGRICULTURAL SYSTEMS SPECIALIST of LAD at this time. Review of Systems Const: Reports: fatigue; Denies: fever(s) or chills Eyes: Denies: change in vision Card: Reports: dyspnea on exertion; Denies: chest pain, swelling of feet/ankles, lightheadedness or orthopnea Resp: Denies: dyspnea, productive cough or non-productive cough GI: Denies: abdominal pain, nausea or vomiting Musc: Reports: joint pain; Denies: neck pain or back pain Neuro: Denies: headache(s) or dizziness Psych: Denies: anxiety or depression Edmund/Lymph: Reports: easy bruising; Denies: easy bleeding Home Meds/Allergies Home Medications and Allergies Home Medications Medication Instructions Recorded Confirmed Type fluticasone propionate 50 2 spray INTRANASAL .prn g 01/09/21 11/21/21 History mcg/actuation nasal spray,suspension (Flonase Allergy Relief) coenzyme Q10 75 mg capsule (Ultra 200 mg PO DAILY cap 07/20/21 11/21/21 History CoQ10) cetirizine 10 mg tablet 10 mg PO DAILY tab 11/01/21 11/21/21 History Allergies Allergy/AdvReac Type Severity Reaction Status Date / Time No Known Allergies Allergy Verified 11/21/21 08:57 PFSH Acute PFSH: Medical History ASHD (arteriosclerotic heart disease) CKD (chronic kidney disease) -Renal function stable CVA (cerebral vascular accident) Dyslipidemia -Lipid panel noted, on statin Erectile dysfunction HTN (hypertension) -Blood pressure improved without intervention -We will discontinue Coreg due to noted bradycardia, continue lisinopril Hypothyroidism Ischemic cardiomyopathy Myocardial infarction Prostate cancer PUD (peptic ulcer disease) Surgical History Hx of heart artery stent LAD stent Hx of hernia repair S/P cataract extraction S/P tonsillectomy Family History Father , PROSTATE CANCER Cancer Mother , OVARIAN CANCER Cancer Social History Smoking and tobacco status: never smoked Alcohol intake: never Adopted: No Caregiver/support person: No Lives independently: No Household members: spouse Marital status: Current occupational status: retired History of recent travel: No Current gender identity: Male Vitals/I&O/Wt Last Vital Signs Temp 98.0 F 11/13/21 15:31 Pulse 67 11/14/21 07:00 Resp 14 11/14/21 07:00 BP 172/84 11/14/21 07:00 Pulse Ox 96 11/14/21 07:00 11/13/21 11/14/21 11/14/21 22:59 06:59 14:59 Intake Total 300 / 550 966.25 / 1516.25 Output Total 850 / 1850 100 / 1950 Balance -550 / -1300 866.25 / -433.75 Weight last 48 hrs Weight 164 lb Physical Exam Narrative: GENERAL: Patient is alert, awake and oriented x3. [] NECK: No jugular vein distension. [] HEENT: No cyanosis. No icterus. No pallor. [] HEART: Regular S1 and S2. No murmur, rub or gallop. [] LUNGS: Clear to auscultate bilaterally. [] ABDOMEN: Soft, nontender and nondistended. Positive bowel sounds. No guarding, rebound or tenderness. [] CENTRAL NERVOUS SYSTEM: Grossly nonfocal. [] EXTREMITIES: Lower extremities with 1+ edema bilaterally. Pulses palpable in the lower extremities, both dorsalis pedis and posterior tibial. [] Hospital Course Hospital Course Rafa Ramirez is a 76 year old male past medical history of ischemic cardiomyopathy, CAD with LAD PCI in the past and now occluded stent, and a recent abnormal stress test. Coronary angiogram showed severe multivessel coronary artery disease including AGRICULTURAL SYSTEMS SPECIALIST of LAD, severe OM1, OM 2 and RCA stenosis. Patient underwent CT surgery evaluation and after heart team approach and discussion with patient, plan is to perform multivessel PCI of OM1, OM 2 and RCA and medically treat AGRICULTURAL SYSTEMS SPECIALIST of LAD at this time. Patient underwent successful revascularization of OM1, OM 2 and RCA. He did well overnight and is stable to be discharged home today. He will be kept on aspirin, Plavix and Eliquis for 1 week and then aspirin can be stopped. SSS Data Data Completed and Pending: Pending at discharge Category Date Time Status OCULAR PATHOLOGIST request for service Routin e Exams 11/13/21 07:00 Taken Discharge Plan Discharge Patient Disposition: Home Prescriptions: New clopidogrel 75 mg tablet 75 mg PO DAILY Qty: 90 3RF Continued sildenafil (pulm.hypertension) 20 mg tablet 20 mg PO DAILY PRN (Reason: prn) Qty: 30 12RF Rx Instructions: 1 to 5 pills 1 hour before intercourse on empty stomach NO NITROGLYCERIN!. amlodipine 10 mg tablet 10 mg PO DAILY Qty: 90 3RF Ultra CoQ10 75 mg capsule 200 mg PO DAILY 0RF aspirin [Adult Aspirin Regimen] 81 mg tablet,delayed release (DR/EC) 81 mg PO DAILY Qty: 90 3RF carvedilol [Coreg] 3.125 mg tablet 3.125 mg PO BID Qty: 180 3RF Rx Instructions: must administer with a meal/food Eliquis 5 mg tablet 5 mg PO BID Qty: 60 3RF hydralazine 50 mg tablet 50 mg PO BID Qty: 60 6RF ezetimibe [Zetia] 10 mg tablet 10 mg PO DAILY Qty: 90 3RF Repatha SureClick 140 mg/mL pen injector 140 mg SUBCUT .Q2W Qty: 2 11RF Flonase Allergy Relief 50 mcg/actuation spray,suspension 2 spray INTRANASAL .prn 0RF cetirizine 10 mg tablet 10 mg PO DAILY 0RF Discontinued clopidogrel 75 mg tablet 75 mg PO DIRECTED Qty: 30 1RF Rx Instructions: Take 4 tabs (300mg) night prior to procedure & 1 tab (75mg) morning of enoxaparin 80 mg/0.8 mL syringe 75 mg SUBCUT DIRECTED PRN (Reason: Prior to cardiac catheterization) Qty: 3 0RF Rx Instructions: Inject 0.75mL BID for 2 days prior to procedure on 11/13 Discharge Orders: Discharge Order (Routine); Ordered 11/14/21 Ordered By: Quincy Gray Referrals: Amara Mohr FNP [Nurse Practitioner] - 7-10 days (Please follow-up with Amara Mohr on November 21 at 9:45A.M. If you have any questions or need to reschedule. Please call ) Margaret Ramos MD [Physician] - 1 month (Please follow-up with Dr. Ramos on December 21 at 3:30P.M. If you have any questions or need to reschedule. Please call ) Diet: Cardiac Activity: Increase activity as tolerated Patient Instructions: Coronary Angioplasty (DC), Chronic Kidney Disease (DC), Post Angiogram Home Care Instructions Activity Restrictions/Additional Instructions: Please do not lift more than 5 pounds of weight for the next 5 days Discharge Date/Time: 11/14/21 11:55 Attestations Medical Necessity Statement*: Care expected to cross 2 midnights Time Spent in Patient Care*: less than 30 min Status at Discharge: Cognitive status at discharge: cognitively intact , Behavioral status at discharge: cooperative , Quality Metrics Clinical Quality Measures: [ No reported AMI, CVA or VTE this stay ] Coding Level of Care Code Acute Heel Shaper for Hannah Saunders
--- NOTE | 2021-11-14 09:45 | PC.NURSE ---
Patient is resting bed and going to use the restroom, has no needs at this time. Did do a a bed change
[2021-11-14] MEDS: aspirin 81 mg EC Tablet PO (09:55)
[2021-11-14] MEDS: clopidogrel 75 mg Tablet PO (09:55)
[2021-11-14] MEDS: cetirizine 10 mg Tablet PO (09:55)
[2021-11-14] MEDS: ezetimibe 10 mg Tablet PO (09:55)
[2021-11-14] MEDS: apixaban 5 mg Tablet PO (09:55)
[2021-11-14] MEDS: carvedilol 3.125 mg Tablet PO (09:56)
[2021-11-14] MEDS: amlodipine 10 mg Tablet PO (09:56)
[2021-11-14] MEDS: hyDRALAzine 50 mg Tablet PO (09:56)
--- NOTE | 2021-11-14 10:48 | PC.NURSE ---
Discharge Note Patient discharged to home via private vehicle accompanied by spouse. All lines removed. No drainage or hematoma noted to right groin. Dressing clean, dry, et intact. Discharge instructions reviewed with patient and/or telephone claims representative. Patient verbalized understanding of all teaching. Mobile pharmacy medications and/or prescriptions provided. Belongings/home medications returned.
== END 2021-11-14 11:55 | disposition home or self-care (01) ==
LOC: CCL 06:13 → CSU 09:19
PROVIDERS: PCP Internal Medicine; Visit Provider Internal Medicine
DX: I25.10 Atherosclerotic heart disease of native coronary artery without angina pectoris (principal); I25.5 Ischemic cardiomyopathy; Z95.5 Presence of coronary angioplasty implant and graft; Z86.73 Personal history of transient ischemic attack (TIA), and cerebral infarction without residual deficits; E78.5 Hyperlipidemia, unspecified; E03.9 Hypothyroidism, unspecified; I25.2 Old myocardial infarction; Z85.46 Personal history of malignant neoplasm of prostate; Z87.11 Personal history of peptic ulcer disease; I12.9 Hypertensive chronic kidney disease with stage 1 through stage 4 chronic kidney disease, or unspecified chronic kidney disease; N18.9 Chronic kidney disease, unspecified; Z79.82 Long term (current) use of aspirin; I51.3 Intracardiac thrombosis, not elsewhere classified
CPT/HCPCS: 36415; 80048; 85025; 85347; 85730; 93454; C1725; C1769; C1874; C1887; C1894; C9600; C9601; J1644; J2250; J3010; J3490; J7030; Q0163; Q9967

== ENCOUNTER → 2021-11-21 09:22 | Outpatient (BNVA) | payer MEDICARE, SELFPAY | PROVIDERS: PCP Internal Medicine; Visit Provider Nurse Practitioner Family | DX: I25.10 Atherosclerotic heart disease of native coronary artery without angina pectoris (principal); Z09 Encounter for follow-up examination after completed treatment for conditions other than malignant neoplasm; I10 Essential (primary) hypertension | CPT/HCPCS: 80048; 99214 ==

== ENCOUNTER → 2021-12-21 15:13 | Outpatient (BNVA) | payer MEDICARE, SELFPAY | PROVIDERS: PCP Internal Medicine; Visit Provider Internal Medicine Cardiovascular Disease | DX: I25.10 Atherosclerotic heart disease of native coronary artery without angina pectoris (principal); I42.9 Cardiomyopathy, unspecified; I12.9 Hypertensive chronic kidney disease with stage 1 through stage 4 chronic kidney disease, or unspecified chronic kidney disease; N18.9 Chronic kidney disease, unspecified; E78.5 Hyperlipidemia, unspecified; I51.3 Intracardiac thrombosis, not elsewhere classified; Z95.5 Presence of coronary angioplasty implant and graft; I25.2 Old myocardial infarction; Z79.01 Long term (current) use of anticoagulants; Z79.82 Long term (current) use of aspirin | CPT/HCPCS: 99214 ==

== ENCOUNTER 2022-01-09 08:46 | Outpatient (CLI) | payer MEDICARE, SELFPAY ==
[2022-01-09 09:31] LABS: Prostate Specific Antigen 0.191 ng/mL (0-4)
== END 2022-01-09 08:47 | disposition home or self-care (01) ==
LOC: LAB 08:49
PROVIDERS: PCP Internal Medicine; Visit Provider Urology
DX: C61 Malignant neoplasm of prostate (principal)
CPT/HCPCS: 36415; 84153

== ENCOUNTER 2022-02-14 10:40 | Outpatient (CLI) | payer MEDICARE, SELFPAY ==
[2022-02-14 11:46] LABS: Alanine Aminotransferase 10 U/L (0-41); Albumin Level 4.2 g/dL (3.5-5.2); Alkaline Phosphatase 80 IU/L (40-130); Anion Gap 12.2 (5-19); Aspartate Amino Transferase 18 U/L (0-40); Blood Urea Nitrogen 26 mg/dL (8-23); Calcium 10.3 mg/dL (8.5-10.5); Carbon Dioxide 27 mmol/L (22-29); Chloride 105 mmol/L (98-107); Chol HDL Ratio 3.15 mg/dL (1.0-5.00); Cholesterol 104 mg/dL (0-200); Globulin 2.6 g/dL (1.3-4.6); Glucose 89 mg/dL (65-115); HDL Cholesterol 33 mg/dL (60-100); LDL Cholesterol Calculated 47 mg/dL (50-129); LDL Cholesterol Direct 56 mg/dL (0-100); LDL HDL Ratio 1.42 RATIO (0.00-3.22); Osmolality Calculated 294 mOsm/kg (285-295); Potassium 4.2 mmol/L (3.5-5.1); Sodium 140 mmol/L (136-145); Total Bilirubin 0.3 mg/dL (0.15-1.2); Total Protein 6.8 g/dL (6.6-8.7); Triglycerides 119 mg/dL (0-150)
== END 2022-02-14 10:41 | disposition home or self-care (01) ==
LOC: LAB 10:44
PROVIDERS: PCP Internal Medicine; Visit Provider Internal Medicine Cardiovascular Disease
DX: I10 Essential (primary) hypertension (principal); I25.10 Atherosclerotic heart disease of native coronary artery without angina pectoris; I25.5 Ischemic cardiomyopathy
CPT/HCPCS: 80053; 80061; 83721

== ENCOUNTER 2022-02-20 11:17 | Outpatient (CLI) | payer MEDICARE, SELFPAY ==
--- NOTE | 2022-02-20 12:00 | USCV_ITS ---
Rafa Ramirez Age: 77 Gender: M : 1945 Exam Date: 02/20/2022 11:51 Ordering Phys: Margaret Ramos MD ([email or web address]) Technologist: Mitesh Jimenes [place] [facility] [place]: LV THROMBUS BP: 135 / 81 HR: 51 Rhythm: Sinus Technical Quality: Adequate MEASUREMENTS (Male / Female) Normal Values 2D ECHO LV Diastolic Diameter PLAX 4.4 cm 4.2 - 5.9 / 3.9 - 5.3 cm LV Systolic Diameter PLAX 2.9 cm IVS Diastolic Thickness 1.2 cm 0.6 - 1.0 / 0.6 - 0.9 cm IVS Systolic Thickness 1.2 cm LVPW Diastolic Thickness 1.1 cm 0.6 - 1.0 / 0.6 - 0.9 cm LVPW Systolic Thickness 1.4 cm LVOT Diameter 2.0 cm LV Ejection Fraction 2D Teich 63.8 % LV Ejection Fraction MOD 2C 67.0 % LV Ejection Fraction 2C AL 66.1 % LA Diameter 3.8 cm Aorta at Sinotubular Diameter 2.4 cm DOPPLER AV Peak Velocity 116.0 cm/s LVOT Peak Velocity 89.0 cm/s AV Area Cont Eq vti 2.3 cm squared AV Area Cont Eq pk 2.4 cm squared MV Area PHT 5.0 cm squared Mitral E to A Ratio 1.9 MV E' Velocity 53.5 cm/s Mitral E to MV E' Ratio 17.1 Mitral E to LV E' Lateral Ratio 17.6 Mitral E to LV E' Septal Ratio 16.5 PV Peak Velocity 72.0 cm/s FINDINGS Left Ventricle Normal left ventricular size and mildly increased wall thickness. Mildly decreased left ventricular systolic function. Left ventricular ejection fraction is estimated at 45-50 %. There is moderate hypokinesis of mid anteroseptal, mid inferoseptal, and akinetic apical septal, apical inferior and apical lateral gutierres. Grade II diastolic dysfunction, moderately elevated filling pressures. There is a small apical thrombus measured 15 x 12 mm in size. Right Ventricle Normal right ventricular size and systolic function. Right Atrium Normal right atrial size. Left Atrium Normal left atrial size. Mitral Valve Mild mitral annular calcification. Mildly thickened mitral valve. No mitral valve stenosis. Trace mitral valve regurgitation. Aortic Valve Structurally normal trileaflet aortic valve. No aortic valve stenosis. No aortic valve regurgitation. Tricuspid Valve Structurally normal tricuspid valve. Pulmonic Valve Structurally normal pulmonic valve. No pulmonary valve stenosis. Trace pulmonary valve regurgitation. Pericardium No pericardial effusion. Aorta Normal size aortic root. IVC Inferior vena cava not visualized. CONCLUSIONS 1. Normal left ventricular size. Mildly decreased left ventricular systolic function. Left ventricular ejection fraction is estimated at 45-50 %. There is moderate hypokinesis of mid anteroseptal, mid inferoseptal, and akinetic apical septal, apical inferior and apical lateral gutierres. Grade II diastolic dysfunction, moderately elevated filling pressures. There is a small apical thrombus measured 15 x 12 mm in size. 2. Normal right ventricular size and systolic function. 3. When compared to previous echo dated 02/12/2020, left ventricle systolic function has decreased and there is small apical thrombus now. Margaret Ramos MD (Electronically Signed) Final Date: 27 February 2022 13:10 S
[2022-02-20] MEDS: perflutren protein-a microsphr 0.22 mg/mL SDV 3 mL IV (12:16)
== END 2022-02-20 11:18 | disposition home or self-care (01) ==
PROVIDERS: PCP Internal Medicine; Visit Provider Internal Medicine Cardiovascular Disease
DX: I25.5 Ischemic cardiomyopathy (principal); R06.02 Shortness of breath; I25.10 Atherosclerotic heart disease of native coronary artery without angina pectoris; I51.89 Other ill-defined heart diseases; C61 Malignant neoplasm of prostate; R36.1 Hematospermia
CPT/HCPCS: 81003; 99213; C8929

== ENCOUNTER → 2022-03-01 09:27 | Outpatient (BNVA) | payer MEDICARE, SELFPAY | PROVIDERS: PCP Internal Medicine; Visit Provider Internal Medicine Cardiovascular Disease | DX: I42.9 Cardiomyopathy, unspecified (principal); I25.10 Atherosclerotic heart disease of native coronary artery without angina pectoris; E78.5 Hyperlipidemia, unspecified; I51.3 Intracardiac thrombosis, not elsewhere classified; I12.9 Hypertensive chronic kidney disease with stage 1 through stage 4 chronic kidney disease, or unspecified chronic kidney disease; N18.9 Chronic kidney disease, unspecified | CPT/HCPCS: 99214 ==

== ENCOUNTER → 2022-08-23 10:20 | Outpatient (BNVA) | payer MEDICARE, SELFPAY | PROVIDERS: PCP Internal Medicine; Visit Provider Internal Medicine Cardiovascular Disease | DX: I42.9 Cardiomyopathy, unspecified (principal); I25.10 Atherosclerotic heart disease of native coronary artery without angina pectoris; E78.5 Hyperlipidemia, unspecified; I51.3 Intracardiac thrombosis, not elsewhere classified; I12.9 Hypertensive chronic kidney disease with stage 1 through stage 4 chronic kidney disease, or unspecified chronic kidney disease; N18.9 Chronic kidney disease, unspecified | CPT/HCPCS: 99214 ==

== ENCOUNTER → 2022-09-17 14:26 | Outpatient (BNVA) | payer MEDICARE, SELFPAY | PROVIDERS: PCP Internal Medicine; Visit Provider Specialist | DX: M25.551 Pain in right hip (principal) | CPT/HCPCS: 73502; 99203 ==

== ENCOUNTER 2022-10-10 21:00 | Emergency (ER) | payer MEDICARE, SELFPAY ==
[2022-10-10 21:05] VITALS: BP 165/91; PULSE 95; RESP 20; TEMP 36.8; O2SAT 96; BMI 23.4
--- NOTE | 2022-10-10 21:06 | XRR_ITS ---
PROCEDURE INFORMATION: Exam: XR Chest Exam date and time: 10/10/2022 9:15 PM Age: 77 years old Clinical indication: Pain; Chest pressure; Additional info: Cp TECHNIQUE: Imaging protocol: Radiologic exam of the chest. Views: 1 view. COMPARISON: CT angio headneck* [id number] 02/11/2020 6:42 PM FINDINGS: Lungs: Slight increased interstitial markings in the lung bases, left slightly greater than right. This likely represents chronic change without acute respiratory symptoms, and without focal infiltrate or consolidation. Pleural spaces: Unremarkable. No pleural effusion. No pneumothorax. Heart/Mediastinum: Cardiac silhouette is within normal limits in overall size, with either coronary artery stent or calcification overlying the left heart. Bones/joints: Mild thoracic dextroscoliosis and/or rotation. XR/XR chest 1V portable [id number] IMPRESSION: 1. Likely chronic basilar reticular markings, as noted above. 2. No acute cardiopulmonary abnormality, otherwise.
--- NOTE | 2022-10-10 21:08 | ECG_ITS ---
[facility] Test Date: 2022-10-10 Pat Name: Rafa Ramirez Department: Room: Gender: Male Orthopedic Tech: : 1945 Requested By: Willie Echevarria Order Number: [id number] Aleksander MD: Marta Novak M.D. Measurements Intervals [place] Rate: 66 P: 30 [place]: 142 QRS: -20 QRSD: 82 T: 65 QT: 387 QTc: 406 Interpretive Statements SINUS RHYTHM WITH SINUS ARRHYTHMIA POSSIBLE LEFT ATRIAL ENLARGEMENT [-0.1mV P-WAVE IN V1/V2] LOW QRS VOLTAGE IN PRECORDIAL LEADS [QRS DEFLECTION < 1.0 mV IN CHEST LEADS] ANTEROSEPTAL MYOCARDIAL INFARCTION , OF INDETERMINATE AGE [40+ ms Q WAVE IN V1-V4] Compared to ECG 02/11/2020 19:20:37 Low QRS voltage now present Myocardial infarct finding now present Sinus bradycardia no longer present Short [place] interval no longer present T-wave abnormality no longer present Poor R-wave progression no longer present Electronically Signed On 10-11-2022 0:13:24 TWISTER TENDER PAPER by Marta Novak M.D. [id number]
[2022-10-10 21:24] LABS: Basophils % 0.2 %; Eosinophils % 0.1 %; Hematocrit 44.7 % (42.0-52.0); Hemoglobin 14.5 g/dL (11.7-16.6); Lymphocytes # 0.8 10^3/uL (0.8-4.8); Lymphocytes % 5.1 %; Mean Corpuscular HGB Conc 32.4 g/dL (30.0-36.0); Mean Corpuscular Hemoglobin 29.9 pg (28.0-34.0); Mean Corpuscular Volume 92.2 fl (80-94); Monocytes # 0.6 10^3/uL (0.2-0.9); Monocytes % 3.5 %; Neutrophils # 14.55 10^3/uL (1.8-7.7); Neutrophils % 90.7 %; Nucleated Red Blood Cells % 0 %; Platelet Count 295 10^3/cmm (130-400); Red Blood Count 4.85 10^6/uL (4.1-5.3); Red Cell Distribution Width 12.2 % (12.1-15.1)
[2022-10-10 21:46] LABS: Alanine Aminotransferase 19 U/L (0-41); Albumin Level 4.5 g/dL (3.5-5.2); Alkaline Phosphatase 100 U/L (40-130); Anion Gap 14.5 (5-19); Aspartate Amino Transferase 20 U/L (0-40); Blood Urea Nitrogen 39 mg/dL (8-23); Calcium 10.4 mg/dL (8.5-10.5); Carbon Dioxide 23 mmol/L (22-29); Chloride 103 mmol/L (98-107); Globulin 2.5 g/dL (1.3-4.6); Glucose 171 mg/dL (65-115); Osmolality Calculated 295 mOsm/kg (285-295); Potassium 4.5 mmol/L (3.5-5.1); Sodium 136 mmol/L (136-145); Total Bilirubin 0.2 mg/dL (0.15-1.2)
[2022-10-10 21:48] LABS: Troponin(5th) Baseline 13 ng/L (0-15)
--- NOTE | 2022-10-10 23:06 | ECG_ITS ---
[facility] Test Date: 2022-10-10 Pat Name: Rafa Ramirez Department: Room: Gender: Male Core Cutter: : 1945 Requested By: Willie Echevarria Order Number: [id number] Aleksander MD: Margaret Ramos M.D. Measurements Intervals [place] Rate: 60 P: 46 [place]: 131 QRS: 2 QRSD: 72 T: 79 QT: 404 QTc: 404 Interpretive Statements SINUS RHYTHM POSSIBLE LEFT ATRIAL ENLARGEMENT [-0.1mV P-WAVE IN V1/V2] LOW QRS VOLTAGE IN PRECORDIAL LEADS [QRS DEFLECTION < 1.0 mV IN CHEST LEADS] ANTEROSEPTAL MYOCARDIAL INFARCTION , OF INDETERMINATE AGE [40+ ms Q WAVE IN V1-V4] Compared to ECG 10/10/2022 21:08:26 Sinus arrhythmia no longer present Myocardial infarct finding still present Electronically Signed On 10-12-2022 8:17:30 DYNAMOTOR REPAIRER by Margaret Ramos M.D. [id number]
[2022-10-10 23:14] VITALS: BP 151/85; PULSE 61; RESP 16; O2SAT 98
--- NOTE | 2022-10-10 23:29 | ED_ITS ---
HPI - Chest Pain General: Chief Complaint: Chest Pain Stated Complaint: CP, SOB Time Seen by Provider: 10/10/22 21:09 Source: patient Mode of arrival: ambulatory Limitations: no limitations History of Present Illness: 77-year-old male states he had bilateral arm pain roughly 2 hours ago he states it lasted few minutes and then another episode 30 minutes after that he had some chest pain with it as well. He states since then he has been feeling fine has had no chest pain otherwise. He states he has had stents in the past and was concerned about his heart. Denies any shortness of breath denies any diaphoresis denies any nausea. Associated symptoms: Deny abdominal pain, dyspnea, fever(s), nausea or vomiting Review of Systems Const: Denies: fever(s), chills, body aches or change in appetite Eyes: Denies: blurry vision or eye discomfort ENMT: Denies: throat pain or dental pain Card: Reports: chest pain Resp: Denies: dyspnea GI: Denies: abdominal pain, nausea, vomiting or diarrhea : Denies: dysuria Musc: Denies: neck pain or back pain Skin/Breast: Denies: rash Neuro: Denies: headache(s) Psych: Denies: depression Edmund/Lymph: Denies: easy bruising All/Imm: Denies: urticaria PFSH ED PFSH: Medical History ASHD (arteriosclerotic heart disease) CKD (chronic kidney disease) -Renal function stable CVA (cerebral vascular accident) Dyslipidemia -Lipid panel noted, on statin Erectile dysfunction HTN (hypertension) -Blood pressure improved without intervention -We will discontinue Coreg due to noted bradycardia, continue lisinopril Hypothyroidism Ischemic cardiomyopathy Myocardial infarction Prostate cancer PUD (peptic ulcer disease) Surgical History Hx of heart artery stent LAD stent Hx of hernia repair S/P cataract extraction S/P tonsillectomy Family History Father , PROSTATE CANCER Cancer Mother , OVARIAN CANCER Cancer Social History Smoking and tobacco status: never smoked Alcohol intake: never Marital status: Current occupational status: retired History of recent travel: No Physical Exam Const: COMMON NORMALS: no acute distress, patient oriented x3 and healthy appearing HENMT: COMMON NORMALS: normocephalic and atraumatic HEAD & SCALP: norm ocephalic and atraumatic Eye: COMMON NORMALS: Equal, round and reactive pupils present and EOMs intact bilaterally PUPIL: Yes Equal, round and reactive pupils present Neck/C-Spine: COMMON NORMALS: full ROM and supple Chest: COMMONS NORMALS: normal inspection of the chest and normal palpation of entire chest wall Resp: COMMON NORMALS: normal respiratory effort, No retractions, No use of accessory muscles and clear to auscultation bilaterally AUSCULTATION: clear to auscultation bilaterally Cardio: COMMON NORMALS: regular rate, regular rhythm and No murmurs present (Cardio) RATE: regular rate RHYTHM: regular rhythm GI: COMMON NORMALS: Normal to inspection, nondistended, normoactive bowel sounds present, Soft to palpation, non-tender and no masses PALPATION: Yes Soft to palpation Extremity: COMMON NORMALS: normal to inspection and full ROM Neuro: COMMON NORMALS: patient oriented x3, moves all extremities and no focal motor deficits Psych: COMMON NORMALS: mental status grossly normal, Normal thought process present and cooperative THOUGHT PROCESS: Normal thought process present Skin: COMMON NORMALS: no rashes or lesions noted and no wounds GENERAL SKIN EXAM: no rashes or lesions noted Course Vital Signs: Vital signs: Vital Signs Temperature 98.3 F 10/10/22 21:05 Pulse Rate 57 L 10/11/22 00:02 Respiratory Rate 16 10/11/22 00:02 Blood Pressure 148/100 10/11/22 00:02 Pulse Oximetry 98 10/11/22 00:02 Oxygen Delivery Me thod 10/10/22 23:14 MDM - Chest Pain Medical Decision Making Patient presents here with chest pain his 2-hour troponin came back less than 10 he has been pain-free here I did have a long discussion with him and offered him admission as he has multiple risk factors he states he feels improved and would rather go home and follow-up with his medicaid collection specialist we will discharge him at this time I did inform him he needs to speak to his medicaid collection specialist and return if wor sening he understands agrees to plan. Lab Data 10/10/22 21:17 10/10/22 21:17 Radiology Impressions Chest X-Ray 10/10/22 21:06 IMPRESSION: 1. Likely chronic basilar reticular markings, as noted above. 2. No acute cardiopulmonary abnormality, otherwise. Laboratory Results WBC 16.0 10^3/uL (4.0-10.0) H 10/10/22 21:17 RBC 4.85 10^6/uL (4.1-5.3) 10/10/22 21:17 Hgb 14.5 g/dL (11.7-16.6) 10/10/22 21:17 Hct 44.7 % (42.0-52.0) 10/10/22 21:17 MCV 92.2 fl (80-94) 10/10/22 21:17 MCH 29.9 pg (28.0-34.0) 10/10/22 21:17 MCHC 32.4 g/dL (30.0-36.0) 10/10/22 21:17 RDW 12.2 % (12.1-15.1) 10/10/22 21:17 Plt Count 295 10^3/cmm (130-400) 10/10/22 21:17 MPV 9.0 fL (7.4-10.4) 10/10/22 21:17 Neut % (Auto) 90.7 % 10/10/22 21:17 Lymph % (Auto) 5.1 % 10/10/22 21:17 [place] % (Auto) 3.5 % 10/10/22 21:17 Eos % (Auto) 0.1 % 10/10/22 21:17 Baso % (Auto) 0.2 % 10/10/22 21:17 Neut # (Auto) 14.55 10^3/uL (1.8-7.7) H 10/10/22 21:17 Lymph # (Auto) 0.8 10^3/uL (0.8-4.8) 10/10/22 21:17 [place] # (Auto) 0.6 10^3/uL (0.2-0.9) 10/10/22 21:17 Eos # (Auto) 0.0 10^3/uL (0.0-0.8) 10/10/22 21:17 Baso # (Auto) 0.0 10^3/uL (0.0-0.1) 10/10/22 21:17 Nucleated RBC % (auto) 0 % 10/10/22 21:17 Nucleated RBCs # 0.0 /100WBC 10/10/22 21:17 Sodium 136 mmol/L (136-145) 10/10/22 21:17 Potassium 4.5 mmol/L (3.5-5.1) 10/10/22 21:17 Chloride 103 mmol/L (98-107) 10/10/22 21:17 Carbon Dioxide 23 mmol/L (22-29) 10/10/22 21:17 Anion Gap 14.5 (5-19) 10/10/22 21:17 BUN 39 mg/dL (8-23) H 10/10/22 21:17 Creatinine 2.0 mg/dL (0.7-1.2) H 10/10/22 21:17 GFR Calculation Not Reportable 10/10/22 21:17 Glucose 171 mg/dL (65-115) H 10/10/22 21:17 Calculated Osmolality 295 mOsm/kg (285-295) 10/10/22 21:17 Calcium 10.4 mg/dL (8.5-10.5) 10/10/22 21:17 Total Bilirubin 0.2 mg/dL (0.15-1.2) 10/10/22 21:17 AST 20 U/L (0-40) 10/10/22 21:17 ALT 19 U/L (0-41) 10/10/22 21:17 Alkaline Phosphatase 100 U/L (40-130) 10/10/22 21:17 Troponin T Baseline 13 ng/L (0-15) 10/10/22 21:17 Troponin T 120 Minute 20.60 ng/L (0-15) H 10/10/22 23:11 Delta Troponin T 7.60 ABS# (0-10) 10/10/22 23:11 Total Protein 7.0 g/dL (6.6-8.7) 10/10/22 21:17 Albumin 4.5 g/dL (3.5-5.2) 10/10/22 21:17 Globulin 2.5 g/dL (1.3-4.6) 10/10/22 21:17 EKG Data EKG 1: I personally reviewed and interpreted this EKG as follows: EKG interpretation date: 10/10/22 EKG interpretation time: 21:08 Interpretation: Normal sinus rhythm heart rate [address] or T wave abnormalities QRS 82 QTc 400 EKG 2: I personally reviewed and interpreted this EKG as follows: EKG interpretation date: 10/10/22 EKG interpretation time: 23:15 Interpretation: Normal sinus rhythm heart rate [address] or T wave maladies QRS 72 QTc 4 4 Discharge Plan Discharge Patient Disposition: Home Clinical Impression: Chest pain Condition: Stable Prescriptions: No Action sildenafil (pulm.hypertension) 20 mg tablet 20 mg PO DAILY PRN (Reason: prn) Qty: 30 12RF Rx Instructions: 1 to 5 pills 1 hour before intercourse on empty stomach NO NITROGLYCERIN!. famotidine 40 mg tablet 40 mg PO BID 10 Days Qty: 20 0RF prednisone 20 mg tablet 60 mg PO DAILY 5 Days Qty: 15 0RF carvedilol [Coreg] 3.125 mg tablet 3.125 mg PO BID Qty: 180 3RF Rx Instructions: must administer with a meal/food meloxicam 15 mg tablet 15 mg PO DAILY Qty: 30 0RF ezetimibe [Zetia] 10 mg tablet 10 mg PO DAILY Qty: 90 3RF Repatha SureClick 140 mg/mL pen injector 140 mg SUBCUT .Q2W Qty: 2 11RF amlodipine 10 mg tablet 10 mg PO DAILY Qty: 90 3RF clopidogrel 75 mg tablet 75 mg PO DAILY Qty: 90 3RF Flonase Allergy Relief 50 mcg/actuation spray,suspension 2 spray INTRANASAL .prn cetirizine 10 mg tablet 10 mg PO DAILY Discharge Orders: Discharge ED (Routine); Ordered 10/10/22 Ordered By: Willie Echevarria Referrals: Glenys Sears MD [Primary Care Provider] - Margaret Ramos MD [Physician] - 1-3 days Discharge Diet: Advance as tolerated Discharge Activity: Resume usual activity Patient Instructions: Chest Pain (ED) Coding Level of Care Code ED Drapery Operator for Hannah Saunders
[2022-10-10 23:30] VITALS: BP 147/92; RESP 16; O2SAT 95
[2022-10-11 00:02] VITALS: BP 148/100; PULSE 57; RESP 16; O2SAT 98
== END 2022-10-11 00:02 | disposition home or self-care (01) ==
PROVIDERS: Emergency Provider Emergency Medicine; PCP Internal Medicine
DX: R07.9 Chest pain, unspecified (principal); I25.10 Atherosclerotic heart disease of native coronary artery without angina pectoris; I10 Essential (primary) hypertension
CPT/HCPCS: 36415; 71045; 80053; 84484; 85025; 93005; 99285

== ENCOUNTER 2022-10-27 03:24 | Emergency (ER) | payer MEDICARE, SELFPAY ==
[2022-10-27 03:33] VITALS: BP 156/86; PULSE 63; RESP 14; TEMP 36.4; O2SAT 96; BMI 22.8
--- NOTE | 2022-10-27 03:37 | ECG_ITS ---
[facility] Test Date: 2022-10-27 Pat Name: Rafa Ramirez Department: Room: Gender: Male Engagement Executive: : 1945 Requested By: Khurram Herrera Order Number: [id number] Aleksander MD: Quincy Gray M.D. Measurements Intervals [place] Rate: 61 P: 40 DE: 145 QRS: -20 QRSD: 82 T: 73 QT: 372 QTc: 378 Interpretive Statements SINUS RHYTHM WITH OCCASIONAL VENTRICULAR PREMATURE COMPLEXES POSSIBLE LEFT ATRIAL ENLARGEMENT [-0.1mV P-WAVE IN V1/V2] INFERIOR MYOCARDIAL INFARCTION , OF INDETERMINATE AGE [40+ ms Q WAVE AND/OR ST/T ABNORMALITY IN II/aVF] ANTEROSEPTAL MYOCARDIAL INFARCTION , OF INDETERMINATE AGE [40+ ms Q WAVE IN V1-V4] Compared to ECG 10/10/2022 23:15:53 Ventricular premature complex(es) now present Myocardial infarct finding still present Electronically Signed On 10-27-2022 12:15:05 RECORDS AND TAPE RECORDINGS ENGINEER by Quincy Gray M.D. [id number]
[2022-10-27 03:45] VITALS: BP 159/66; PULSE 56; RESP 16; O2SAT 96
--- NOTE | 2022-10-27 03:59 | CTR_ITS ---
PROCEDURE INFORMATION: Exam: CT Head Without Contrast Exam date and time: 10/27/2022 4:08 AM Age: 77 years old Clinical indication: Stroke-like symptoms; RT upper extremity and RT lower extremity weakness; Additional info: Symptoms of acute stroke TECHNIQUE: Imaging protocol: Computed tomography of the head without contrast. Radiation optimization: All CT scans at this facility use at least one of these dose optimization techniques: automated exposure control; mA and/or kV adjustment per patient size (includes targeted exams where dose is matched to clinical indication); or iterative reconstruction. Other technique: STROKE PROTOCOL was implemented. REPORTING DATA: Count of CT and Cardiac NM exams in prior 12 months: This patient has received 0 known CTs and 0 known cardiac nuclear medicine studies in the 12 months prior to the current study. COMPARISON: MR head wo con* [id number] 02/12/2020 8:19 AM RADIATION DOSE METRICS: Total DLP (mGy-cm): 1190.99 FINDINGS: Brain: There is moderate cerebral atrophy. There is moderate diffuse heterogeneity of the white matter attenuation, consistent with chronic white matter ischemic changes. Negative for intracranial hemorrhage. Negative for intracranial mass. Negative for midline shift of the brain. Villeda matter and white matter interfaces are preserved. Cerebral ventricles: No ventriculomegaly. Paranasal sinuses: Visualized sinuses are unremarkable. No fluid levels. Mastoid air cells: Visualized mastoid air cells are well aerated. Bones/joints: Unremarkable. No acute fracture. Soft tissues: Unremarkable. CT/CT head thrombolytic [id number] IMPRESSION: Negative for acute intracranial abnormality. ASSESSMENT: ASPECTS ([place] Stroke Program Early CT Score) is 10.
[2022-10-27 04:13] LABS: Basophils # 0.1 10^3/uL (0.0-0.1); Basophils % 1.5 %; Eosinophils # 0.2 10^3/uL (0.0-0.8); Eosinophils % 3.4 %; Hematocrit 45.1 % (42.0-52.0); Hemoglobin 14.7 g/dL (11.7-16.6); Lymphocytes # 1.1 10^3/uL (0.8-4.8); Lymphocytes % 17.5 %; Mean Corpuscular HGB Conc 32.6 g/dL (30.0-36.0); Mean Corpuscular Hemoglobin 29.3 pg (28.0-34.0); Mean Corpuscular Volume 89.8 fl (80-94); Mean Platelet Volume 8.6 fL (7.4-10.4); Monocytes # 0.6 10^3/uL (0.2-0.9); Monocytes % 10.5 %; Neutrophils # 4.09 10^3/uL (1.8-7.7); Neutrophils % 66.9 %; Nucleated Red Blood Cells % 0 %; Platelet Count 302 10^3/cmm (130-400); Red Blood Count 5.02 10^6/uL (4.1-5.3); White Blood Count 6.1 10^3/uL (4.0-10.0)
[2022-10-27 04:25] LABS: INR 0.98 (0.8-1.2)
[2022-10-27 04:26] LABS: Partial Thromboplastin Time 34.7 SECONDS (23.9-36.7)
[2022-10-27 04:29] LABS: Alanine Aminotransferase 15 U/L (0-41); Albumin Level 3.9 g/dL (3.5-5.2); Alkaline Phosphatase 94 U/L (40-130); Anion Gap 12.3 (5-19); Aspartate Amino Transferase 20 U/L (0-40); Blood Urea Nitrogen 23 mg/dL (8-23); Calcium 10.1 mg/dL (8.5-10.5); Carbon Dioxide 23 mmol/L (22-29); Chloride 106 mmol/L (98-107); Globulin 2.8 g/dL (1.3-4.6); Glucose 103 mg/dL (65-115); Osmolality Calculated 288 mOsm/kg (285-295); Potassium 4.3 mmol/L (3.5-5.1); Sodium 137 mmol/L (136-145); Total Bilirubin 0.2 mg/dL (0.15-1.2); Total Protein 6.7 g/dL (6.6-8.7)
[2022-10-27 04:34] LABS: Add Urine Microscopic? NO; Charge for UA Resulting for Rev
[2022-10-27 04:43] LABS: Bilirubin Urine Neg (Negative); Blood Urine Neg (Negative); Glucose Urine UA Norm (Normal); Ketones Urine Negative (Negative); Leukocyte Esterase Urine Negative (Negative); Nitrate Urine Negative (Negative); Protein Urine Neg (Negative); Specific Gravity, Urine 1.015 (1.005-1.030); Urine Appearance Clear (CLEAR); Urine Color Colorless (Yellow); Urobilinogen Urine Neg (Negative); pH Urine 5 (5-7)
[2022-10-27 04:45] LABS: Amphetamines Screen Urine Negative (Negative); Barbiturates Screen Urine Negative (Negative); Benzodiazepines Screen Urine Negative (Negative); Cocaine Screen Urine Negative (Negative); Opiate Screen Urine Negative (Negative); PCP Screen Urine Negative (Negative); THC Screen Urine Negative (Negative)
[2022-10-27 05:00] VITALS: BP 155/84; PULSE 54; RESP 16; O2SAT 97
--- NOTE | 2022-10-27 05:48 | W.ED.NEUROSD ---
HPI - Neuro Symptoms/Deficit General: Chief Complaint: Neuro Symptoms/Deficit Stated Complaint: Rt Side Pain Numb Time Seen by Provider: 10/27/22 03:50 History of Present Illness: 77-year-old gentleman who went to bed around 9:30 PM. He awoke around 2 AM. He says he was laying on his left side when he awoke. He notes that when he rolled over to his right side his right side felt different than normal. It felt like there were rocks in my mattress . After getting up, he noted that his right leg seemed a bit weak. He had a tingling sensation throughout upper and lower extremity on the right side. No recent fever or other illness. No chest pain or shortness of breath recently. He does have a history of coronary disease. He is on Plavix Onset (ago): hour(s) Last Observed Normal: 21:30 Location: right face, left leg and right leg History of same: No Severity: mild Quality: weak, numb and tingling Relieving factors: none Associated symptoms: Deny chest pain, cough, diaphoresis, fevers/chills, headache(s), anorexia, nausea, short of breath or vomiting Treatments Prior to Arrival: none Review of Systems Const: Denies: diaphoresis Eyes: Denies: change in vision ENMT: Denies: throat pain Card: Denies: chest pain Resp: Denies: dyspnea or productive cough GI: Denies: nausea or vomiting Neuro: Denies: headache(s) PFS ED PFSH: Medical History ASHD (arteriosclerotic heart disease) CKD (chronic kidney disease) -Renal function stable CVA (cerebral vascular accident) Dyslipidemia -Lipid panel noted, on statin Erectile dysfunction HTN (hypertension) -Blood pressure improved without intervention -We will discontinue Coreg due to noted bradycardia, continue lisinopril Hypothyroidism Ischemic cardiomyopathy Myocardial infarction Prostate cancer PUD (peptic ulcer disease) Surgical History Hx of heart artery stent LAD stent Hx of hernia repair S/P cataract extraction S/P tonsillectomy Family History Father , PROSTATE CANCER Cancer Mother , OVARIAN CANCER Cancer Social History Smoking and tobacco status: never smoked Alcohol intake: never Marital status: Current occupational status: retired NIH stroke score NIHSS: Level Of Consciousness - 1a: 0 Level Of Consciousness Questions - 1b: Both Correct Level Of Consciousness Commands - 1c: Both Correct Best Gaze - 2: Normal Visual [place] - 3: No Visual Loss Facial Palsy - 4: Normal Motor Arm Right - 5: No Drift Motor Arm Left - 5: No Drift Motor Leg Right - 6: No Drift Motor Leg Left - 6: No Drift Limb Ataxia - 7: Absent Sensory - 8: Normal Best Language - 9: No Aphasia Dysarthia - 10: Normal Extinction And Inattention - 11: 0 Score: Total Score: 0 Physical Exam Const: COMMON NORMALS: no acute distress and alert GENERAL APPEARANCE: cooperative HENMT: COMMON NORMALS: normocephalic, atraumatic and Normal external nose present HEAD & SCALP: normocephalic and atraumatic FACE & SINUS: normal facial exam and face symmetric NOSE: Normal external nose present GENERAL EAR: hearing grossly impaired Eye: COMMON NORMALS: Equal, round and reactive pupils present and EOMs intact bilaterally PUPIL: Yes Equal, round and reactive pupils present Neck/C-Spine: GENERAL: Yes trachea midline Chest: CHEST: Yes Symmetrical chest wall rise Resp: COMMON NORMALS: normal respiratory effort, No use of accessory muscles and clear to auscultation bilaterally AUSCULTATION: clear to auscultation bilaterally Cardio: COMMON NORMALS: regular rate and regular rhythm RATE: regular rate RHYTHM: regular rhythm GI: COMMON NORMALS: Normal to inspection, nondistended, normoactive bowel sounds present and Soft to palpation PALPATION: Yes Soft to palpation Neuro: HUYEN COMA SCALE: document GCS findings [place] coma scale eye opening: Spontaneous [place] coma scale verbal response: Orientated Huyen coma scale motor response: Obey commands [place] coma scale total score: 15 SENSORIUM/ORIENTATION: Yes alert Psych: COMMON NORMALS: mental status grossly normal and cooperative Course Vital Signs: Vital signs: Vital Signs Temperature 97.5 F L 10/27/22 03:33 Pulse Rate 54 L 10/27/22 05:00 Respiratory Rate 16 10/27/22 05:00 Blood Pressure 155/84 10/27/22 05:00 Pulse Oximetry 97 10/27/22 05:00 Oxygen Delivery Me thod 10/27/22 03:33 MDM - Neuro Symptoms/Deficit Medical Decision Making 77-year-old male with very transient symptoms of paresthesias to the right upper and lower extremity. He may have had some weakness to the right lower extremity as well, although this was not appreciated on exam. His CT is negative. His NIH stroke scale on my exam is 0. His symptoms are completely resolved. He has walked in the ER without difficulty and feels normal . He wishes to go home. He is already on Plavix. We will have him follow-up with his doctor. He knows to return for any return of his symptoms. Lab Data 10/27/22 03:54 10/27/22 03:[address] 10/27/22 03:59 IMPRESSION: Negative for acute intracranial abnormality. ASSESSMENT: ASPECTS ([place] Stroke Program Early CT Score) is 10. Laboratory Results WBC 6.1 10^3/uL (4.0-10.0) 10/27/22 03:54 RBC 5.02 10^6/uL (4.1-5.3) 10/27/22 03:54 Hgb 14.7 g/dL (11.7-16.6) 10/27/22 03:54 Hct 45.1 % (42.0-52.0) 10/27/22 03:54 MCV 89.8 fl (80-94) 10/27/22 03:54 MCH 29.3 pg (28.0-34.0) 10/27/22 03:54 MCHC 32.6 g/dL (30.0-36.0) 10/27/22 03:54 RDW 12.0 % (12.1-15.1) L 10/27/22 03:54 Plt Count 302 10^3/cmm (130-400) 10/27/22 03:54 MPV 8.6 fL (7.4-10.4) 10/27/22 03:54 Neut % (Auto) 66.9 % 10/27/22 03:54 Lymph % (Auto) 17.5 % 10/27/22 03:54 [place] % (Auto) 10.5 % 10/27/22 03:54 Eos % (Auto) 3.4 % 10/27/22 03:54 Baso % (Auto) 1.5 % 10/27/22 03:54 Neut # (Auto) 4.09 10^3/uL (1.8-7.7) 10/27/22 03:54 Lymph # (Auto) 1.1 10^3/uL (0.8-4.8) 10/27/22 03:54 [place] # (Auto) 0.6 10^3/uL (0.2-0.9) 10/27/22 03:54 Eos # (Auto) 0.2 10^3/uL (0.0-0.8) 10/27/22 03:54 Baso # (Auto) 0.1 10^3/uL (0.0-0.1) 10/27/22 03:54 Nucleated RBC % (auto) 0 % 10/27/22 03:54 Nucleated RBCs # 0.0 /100WBC 10/27/22 03:54 PT 13.30 SECONDS (12.1-14.9) 10/27/22 03:54 INR 0.98 (0.8-1.2) 10/27/22 03:54 APTT 34.7 SECONDS (23.9-36.7) 10/27/22 03:54 Sodium 137 mmol/L (136-145) 10/27/22 03:54 Potassium 4.3 mmol/L (3.5-5.1) 10/27/22 03:54 Chloride 106 mmol/L (98-107) 10/27/22 03:54 Carbon Dioxide 23 mmol/L (22-29) 10/27/22 03:54 Anion Gap 12.3 (5-19) 10/27/22 03:54 BUN 23 mg/dL (8-23) 10/27/22 03:54 Creatinine 1.4 mg/dL (0.7-1.2) H 10/27/22 03:54 GFR Calculation Not Reportable 10/27/22 03:54 Glucose 103 mg/dL (65-115) 10/27/22 03:54 Calculated Osmolality 288 mOsm/kg (285-295) 10/27/22 03:54 Calcium 10.1 mg/dL (8.5-10.5) 10/27/22 03:54 Total Bilirubin 0.2 mg/dL (0.15-1.2) 10/27/22 03:54 AST 20 U/L (0-40) 10/27/22 03:54 ALT 15 U/L (0-41) 10/27/22 03:54 Alkaline Phosphatase 94 U/L (40-130) 10/27/22 03:54 Total Protein 6.7 g/dL (6.6-8.7) 10/27/22 03:54 Albumin 3.9 g/dL (3.5-5.2) 10/27/22 03:54 Globulin 2.8 g/dL (1.3-4.6) 10/27/22 03:54 Urine Color Colorless (Yellow) 10/27/22 04:31 Urine Appearance Clear (CLEAR) 10/27/22 04:31 Urine pH 5 (5-7) 10/27/22 04:31 Ur Specific [place] 1.015 (1.005-1.030) 10/27/22 04:31 Urine Protein Neg (Negative) 10/27/22 04:31 Urine Glucose (UA) Norm (Normal) 10/27/22 04:31 Urine Ketones Negative (Negative) 10/27/22 04:31 Urine Blood Neg (Negative) 10/27/22 04:31 Urine Nitrate Negative (Negative) 10/27/22 04:31 Urine Bilirubin Neg (Negative) 10/27/22 04:31 Urine Urobilinogen Neg mg/dL (Negative) 10/27/22 04:31 Ur Leukocyte Esterase Negative (Negative) 10/27/22 04:31 Urine Opiates Screen Negative ng/mL (Negative) 10/27/22 04:31 Ur Barbiturates Screen Negative ng/mL (Negative) 10/27/22 04:31 Ur Phencyclidine Scrn Negative ng/mL (Negative) 10/27/22 04:31 Ur Amphetamines Screen Negative ng/mL (Negative) 10/27/22 04:31 U Benzodiazepines Scrn Negative ng/mL (Negative) 10/27/22 04:31 Urine Cocaine Screen Negative ng/mL (Negative) 10/27/22 04:31 U Marijuana (THC) Screen Negative ng/mL (Negative) 10/27/22 04:31 Discharge Plan Discharge Patient Disposition: Home Clinical Impression: Paresthesia Condition: Stable Prescriptions: No Action sildenafil (pulm.hypertension) 20 mg tablet 20 mg PO DAILY PRN (Reason: prn) Qty: 30 12RF Rx Instructions: 1 to 5 pills 1 hour before intercourse on empty stomach NO NITROGLYCERIN!. famotidine 40 mg tablet 40 mg PO BID 10 Days Qty: 20 0RF prednisone 20 mg tablet 60 mg PO DAILY 5 Days Qty: 15 0RF carvedilol [Coreg] 3.125 mg tablet 3.125 mg PO BID Qty: 180 3RF Rx Instructions: must administer with a meal/food meloxicam 15 mg tablet 15 mg PO DAILY Qty: 30 0RF ezetimibe [Zetia] 10 mg tablet 10 mg PO DAILY Qty: 90 3RF Repatha SureClick 140 mg/mL pen injector 140 mg SUBCUT .Q2W Qty: 2 11RF amlodipine 10 mg tablet 10 mg PO DAILY Qty: 90 3RF clopidogrel 75 mg tablet 75 mg PO DAILY Qty: 90 3RF Flonase Allergy Relief 50 mcg/actuation spray,suspension 2 spray INTRANASAL .prn cetirizine 10 mg tablet 10 mg PO DAILY Discharge Orders: Discharge ED (Routine); Ordered 10/27/22 Ordered By: Khurram Braden Referrals: Glenys Sears MD [Primary Care Provider] - 1-3 days Patient Instructions: Transient Ischemic Attack (ED), Paresthesia (ED) Activity Restrictions/Additional Instructions: Your symptoms are difficult to categorize. This could have been a transient ischemic attack or otherwise known as a mini stroke . Return for return of symptoms of weakness, change in sensation, trouble with language, vision changes, any other concerning symptoms. Follow-up with your doctor. Coding Level of Care Code ED Hydraulic Barker Operator for Hannah Saunders
== END 2022-10-27 05:49 | disposition home or self-care (01) ==
PROVIDERS: Emergency Provider Emergency Medicine; PCP Internal Medicine
DX: R20.2 Paresthesia of skin (principal); Z79.02 Long term (current) use of antithrombotics/antiplatelets; I12.9 Hypertensive chronic kidney disease with stage 1 through stage 4 chronic kidney disease, or unspecified chronic kidney disease; N18.9 Chronic kidney disease, unspecified; Z86.73 Personal history of transient ischemic attack (TIA), and cerebral infarction without residual deficits; E78.5 Hyperlipidemia, unspecified; I25.2 Old myocardial infarction; Z85.46 Personal history of malignant neoplasm of prostate
CPT/HCPCS: 70450; 80053; 80306; 81003; 85025; 85610; 85730; 93005; 99285

== ENCOUNTER → 2022-12-19 13:13 | Outpatient (BNVA) | payer MEDICARE, SELFPAY | PROVIDERS: PCP Internal Medicine; Visit Provider Internal Medicine Cardiovascular Disease | DX: I12.9 Hypertensive chronic kidney disease with stage 1 through stage 4 chronic kidney disease, or unspecified chronic kidney disease (principal); N18.9 Chronic kidney disease, unspecified; I25.10 Atherosclerotic heart disease of native coronary artery without angina pectoris; E78.5 Hyperlipidemia, unspecified | CPT/HCPCS: 99214 ==

== ENCOUNTER 2023-01-10 09:05 | Outpatient (CLI) | payer MEDICARE, SELFPAY ==
[2023-01-10 09:49] LABS: Prostate Specific AG Urology 0.22 ng/mL (0-4)
== END 2023-01-10 09:06 | disposition home or self-care (01) ==
LOC: LAB 09:10
PROVIDERS: PCP Internal Medicine; Visit Provider Urology
DX: R97.20 Elevated prostate specific antigen [PSA] (principal)
CPT/HCPCS: 36415; 51798; 84153; 99213

== ENCOUNTER 2023-01-21 08:31 | Outpatient (CLI) | payer MEDICARE, SELFPAY ==
--- NOTE | 2023-01-21 | ECG_ITS ---
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 Interpretive Statements NAME OF STUDY: LEXISCAN SESTAMIBI STRESS TEST INDICATION: Coronary Artery Disease PROCEDURE: At the baseline, the EKG revealed normal sinus rhythm with a poor R wave progression. Features of old anteroseptal myocardial infarction.. The baseline heart was 60 bpm with a blood pressue of 150/99 mm of Hg Lexiscan was infused over a period of 20 seconds. A total of 0.4 milligrams of Lexiscan was infused. The stress phase was continued for a total of 5 minutes. Heart rate at the end of the stress phase was 75 bpm with a blood pressure 165/92 mm of Hg. The EKG at the peak infusion revealed no significant changes. Sestamibi was injected 20 seconds after the Lexiscan infusion. Heart rate at the end of the recovery phase was 77 bpm with a blood pressure of 173/94 mm of Hg. CONCLUSION: 1. No significant EKG changes with the LexiScan infusion 2. No LexiScan induced chest pain or cardiac arrhythmia 3. Normal blood pressure and heart rate response 4. Sestamibi/sestamibi perfusion scan pending; see separate report. Electronically Signed On 01-24-2023 7:40:08 CDT by Marta Novak M.D. [email or web address]
[2023-01-21 09:11] VITALS: BMI 22.9
--- NOTE | 2023-01-21 09:14 | NMCV_ITS ---
NM randa perf SPECT r/s* [id number] Rafa Ramirez Age: 78 Gender: M : 1945 Exam Date: 01/21/2023 09:59 Ordering Phys: Alonso Bowling MD ([email or web address]) Technologist: DORYS Roman Exam Location: [facility] Indications: ATHEROSCLEROTIC HEART DISEASE STRESS TEST Please see separate stress test report in [facility] for full findings IMAGE PROTOCOL Rest/Stress 1 Lexiscan Day Radiopharmaceutical Dose (mCi) Administration Site Administered by Rest: Tc-99m 10.9 IV DORYS Dunham Sestamibi Stress:Tc-99m 32.6 IV DORYS Dunham Sestamibi Rest: 21-Jan-2023 60 Discovery 630 Stress: 21-Jan-2023 30 Discovery 630 0.4mg Lexiscan. Images obtained in supine and prone position. SPECT RESULTS Technical Quality: Excellent Raw Data Analysis: Normal Image Corrections: No attenuation or motion correction applied Summed Stress Score: 24 Summed Rest Score: 23 Summed Difference Score: 2 PERFUSION FINDINGS A moderate to large area of moderate to severely decreased tracer uptake in the mid and apical anterior, mid anteroseptal, mid inferoseptal, all the apical segments including LV apex. Small areas of reversibility were noted in the anterior and septal region. FUNCTIONAL RESULTS (calculated via Gated SPECT) Stress Image LV EF (%): 57 Stress EDV (mL):126 TID: 1.1 Stress ESV (mL):54 FUNCTIONAL FINDINGS: Segmental wall motion analysis revealed diffuse hypokinesia of the septum and the LV apex IMPRESSIONS 1. Myocardial perfusion imaging revealing moderate to large area of persistent decreased tracer uptake in the mid and apical anterior, mid anteroseptal, mid anterolateral and all the apical segments including the LV apex with a subtle areas of reversibility, suggesting myocardial scarring distribution of all 3 coronary arteries with small areas of carlos eduardo-infarction ischemia. 2. LV ejection fraction of 57%. 3. Left-ventricular wall motion abnormalities as mentioned above. 4. Mildly dilated LV cavity . Compared to the study from 10/20/2020, the LV ejection fraction has improved with a less ischemic burden Dr Marta Novak MD [facility] (Electronically Signed) Final Date: 21 Jan 2023 14:37 S
[2023-01-21] MEDS: regadenoson 0.4 Mg/5 ml Syringe IVP (10:29)
[2023-01-21 10:50] VITALS: BP 173/94; PULSE 79
== END 2023-01-21 08:32 | disposition home or self-care (01) ==
PROVIDERS: PCP Internal Medicine; Visit Provider Internal Medicine Cardiovascular Disease
DX: I25.10 Atherosclerotic heart disease of native coronary artery without angina pectoris (principal)
CPT/HCPCS: 36415; 78452; 93017; 96374; A9500; J2785

== ENCOUNTER → 2023-02-12 12:32 | Outpatient (BNVA) | payer MEDICARE, SELFPAY | PROVIDERS: PCP Internal Medicine; Visit Provider Internal Medicine Cardiovascular Disease | DX: I12.9 Hypertensive chronic kidney disease with stage 1 through stage 4 chronic kidney disease, or unspecified chronic kidney disease (principal); N18.9 Chronic kidney disease, unspecified; I25.5 Ischemic cardiomyopathy; E78.5 Hyperlipidemia, unspecified; I25.10 Atherosclerotic heart disease of native coronary artery without angina pectoris | CPT/HCPCS: 99214 ==

== ENCOUNTER → 2023-04-23 10:28 | Outpatient (BNVA) | payer MEDICARE, SELFPAY | PROVIDERS: PCP Internal Medicine; Visit Provider Orthopaedic Surgery | DX: M48.062 Spinal stenosis, lumbar region with neurogenic claudication (principal) | CPT/HCPCS: 72110; 99204 ==

== ENCOUNTER → 2023-05-07 11:51 | Outpatient (BNVA) | payer MEDICARE, SELFPAY | PROVIDERS: PCP Internal Medicine; Visit Provider Internal Medicine Cardiovascular Disease | DX: I12.9 Hypertensive chronic kidney disease with stage 1 through stage 4 chronic kidney disease, or unspecified chronic kidney disease (principal); N18.9 Chronic kidney disease, unspecified; I25.5 Ischemic cardiomyopathy; E78.5 Hyperlipidemia, unspecified; I25.10 Atherosclerotic heart disease of native coronary artery without angina pectoris | CPT/HCPCS: 99213 ==

== ENCOUNTER 2023-06-04 09:57 | Outpatient (CLI) | payer MEDICARE, SELFPAY ==
--- NOTE | 2023-06-04 10:15 | MR_ITS ---
WS: [id number] MRI LUMBAR SPINE NONCONTRAST HISTORY: low back pain COMPARISON: None available. TECHNIQUE: Sagittal and axial multisequence imaging is submitted. Reversal the normal cervical lordosis. C5 retrolisthesis by 5 mm with contact and displacement of the cervical cord. Mild cervical stenosis suspected. There are additional degenerative changes centered scoliosis throughout the thoracic and cervical spine. Mild LEFT curvature lumbar spine. Disc spaces are narrowed and desiccated. Degenerative endplate benz ges throughout the lumbar spine. Most significant degeneration is at the L3-4 level. Diffuse disc space narrowing and desiccation. Conus terminates normally at L1-2 disc level. L1-L2: Mild annular disc bulging and osteophytic ridging. Disc is asymmetrically bulging to the LEFT. Very mild encroachment upon the subarticular recesses and foramina. No high-grade stenosis. L2-L3: Mild annular disc bulging with osteophytic ridging. Moderate ligamentum flavum and facet arthr itis. Mild central and bilateral subarticular recess stenosis. There is mild disc contact on the colt ersing L3 nerve roots. L3-L4: Marked asymmetric disc bulging, ligamentum flavum and osteophytic ridging. There is significan t disc encroachment upon the central canal and subarticular recesses. Asymmetric disc bulging into th e RIGHT foramen. Moderate to severe RIGHT foraminal stenosis and moderate on the LEFT. L4-L5: Marked annular disc bulging, osteophytic ridging, facet and ligamentum flavum hypertrophy. Sev ere central, bilateral subarticular recess and moderate to severe foraminal stenosis. There is signif icant disc contact on the traversing L5 nerve roots. L5-S1: Marked annular disc bulging with a central disc protrusion. Osteophytic ridging and facet arth ritis. Central disc protrusion contacts the S1 nerve roots bilaterally but greatest on the LEFT. Mode rate to severe bilateral foraminal stenosis. RIGHT renal cyst 13 mm. Mild atherosclerosis abdominal aorta. IMPRESSION: 1. 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 2. L3-4: Severe central with moderate to severe RIGHT and moderate LEFT foraminal stenosis 3. L4-5: Severe central, bilateral subarticular recess moderate to severe foraminal stenosis. There i s significant disc contact on the traversing L5 nerve roots. 4. L5-S1: Central disc protrusion contacts the S1 nerve roots bilaterally but greatest on the LEFT. M oderate to severe bilateral foraminal stenosis. 5. L2-3: Mild central and bilateral subarticular recess stenosis. Mild disc contact on the traversing L3 nerve roots.
== END 2023-06-04 09:58 | disposition home or self-care (01) ==
PROVIDERS: PCP Internal Medicine; Visit Provider Orthopaedic Surgery
DX: M51.36 Other intervertebral disc degeneration, lumbar region (principal); M48.062 Spinal stenosis, lumbar region with neurogenic claudication; M51.27 Other intervertebral disc displacement, lumbosacral region
CPT/HCPCS: 72148

== ENCOUNTER → 2023-06-11 09:56 | Outpatient (BNVA) | payer MEDICARE, SELFPAY | PROVIDERS: PCP Internal Medicine; Visit Provider Orthopaedic Surgery | DX: M48.062 Spinal stenosis, lumbar region with neurogenic claudication | CPT/HCPCS: 99214 ==

== ENCOUNTER 2023-07-12 13:17 | Emergency (ER) | payer MEDICARE, SELFPAY ==
[2023-07-12] VITALS (8 sets, daily range): BP systolic 131–187; BP diastolic 74–118; PULSE 63–71; RESP 18–27; TEMP 36.6; O2SAT 96–100; BMI 21.4
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
--- NOTE | 2023-07-12 14:41 | ECG_ITS ---
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 Measurements Intervals [place]y Rate: 61 P: 62 [place]: 135 QRS: 5 QRSD: 91 T: 65 QT: 379 QTc: 384 Interpretive Statements SINUS RHYTHM WITH SINUS ARRHYTHMIA LEFT ATRIAL ENLARGEMENT [-0.15mV P-WAVE IN V1/V2] ANTERIOR MYOCARDIAL INFARCTION , OF INDETERMINATE AGE [40+ ms Q WAVE AND/OR ST/T ABNORMALITY IN V3/V4] Compared to ECG 10/27/2022 03:40:59 Ventricular premature complex(es) no longer present Myocardial infarct finding still present Electronically Signed On 07-12-2023 20:55:58 VAN DRIVER HELPER by Marta Novak M.D. [id number]
[2023-07-12 14:54] LABS: Basophils # 0.1 10^3/uL (0.0-0.1); Basophils % 0.6 %; Eosinophils # 0.1 10^3/uL (0.0-0.8); Hematocrit 49.9 % (37-53); Lymphocytes # 1.7 10^3/uL (0.8-4.8); Lymphocytes % 16.9 %; Mean Corpuscular HGB Conc 33.1 g/dL (30-55); Mean Corpuscular Hemoglobin 31.3 pg (27-33); Mean Corpuscular Volume 94.7 fl (82-101); Mean Platelet Volume 8.9 fL (7.4-10.4); Monocytes # 0.5 10^3/uL (0.2-0.9); Monocytes % 5.4 %; Neutrophils # 7.46 10^3/uL (1.8-7.7); Neutrophils % 75.8 %; Nucleated Red Blood Cells % 0 %; Platelet Count 275 10^3/cmm (157-399); Red Blood Count 5.27 10^6/uL (3.85-5.65); Red Cell Distribution Width 11.9 % (12.1-15.1); White Blood Count 9.84 10^3/uL (3.29-11.43)
[2023-07-12] MEDS: labetalol 5 mg/mL SDV 20mL 10 MG IVP (15:04)
[2023-07-12 15:19] LABS: Alanine Aminotransferase 15 U/L (0-41); Albumin Level 4.8 g/dL (3.5-5.2); Alkaline Phosphatase 85 U/L (40-130); Anion Gap 16.5 (5-19); Aspartate Amino Transferase 20 U/L (0-40); Blood Urea Nitrogen 32 mg/dL (8-23); Calcium 10.8 mg/dL (8.5-10.5); Carbon Dioxide 24 mmol/L (22-29); Chloride 104 mmol/L (98-107); Globulin 3.2 g/dL (1.3-4.6); Glucose 113 mg/dL (65-115); Osmolality Calculated 298 mOsm/kg (285-295); Potassium 4.5 mmol/L (3.5-5.1); Sodium 140 mmol/L (136-145); Total Bilirubin 0.3 mg/dL (0.15-1.2)
[2023-07-12] MEDS: nicardipine 20 MG/200 ML PREMIX 50 MG IV (15:35)
--- NOTE | 2023-07-12 16:36 | PC.NURSE ---
NICARDIPINE DRIP CONTINUING TO RUN AT 15 MG WITH EMS UPON DISCHARGE.
== END 2023-07-12 16:39 ==
PROVIDERS: Emergency Provider Physician Assistant; PCP Internal Medicine
DX: S61.216A Laceration without foreign body of right little finger without damage to nail, initial encounter (principal); S06.30AA Unspecified focal traumatic brain injury with loss of consciousness status unknown, initial encounter; Z79.02 Long term (current) use of antithrombotics/antiplatelets; I12.9 Hypertensive chronic kidney disease with stage 1 through stage 4 chronic kidney disease, or unspecified chronic kidney disease; N18.9 Chronic kidney disease, unspecified; Z86.73 Personal history of transient ischemic attack (TIA), and cerebral infarction without residual deficits; E78.5 Hyperlipidemia, unspecified; I25.2 Old myocardial infarction; Z85.46 Personal history of malignant neoplasm of prostate; I25.5 Ischemic cardiomyopathy; V89.2XXA Person injured in unspecified motor-vehicle accident, traffic, initial encounter
CPT/HCPCS: 70450; 72125; 73140; 80053; 85025; 93005; 96365; 96375; 99285; J3490

== ENCOUNTER 2023-08-06 06:43 | Outpatient (CLI) | payer MEDICARE, SELFPAY ==
--- NOTE | 2023-08-06 06:52 | CT_ITS ---
WS: [id number] CTA HEAD TECHNIQUE: Contrast enhanced CTA of the head with coronal and sagittal reformatted images and maximum intensity projection (MIP) images. NASCET criteria utilized. CLINICAL INFORMATION: INTRAPARENCHYMAL HEMORRHAGE OF BRAIN COMPARISON: CT head 07/12/2023 DLP: 1078.[address] scans at [facility] use at least one of these dose optimization techniques: automated e xposure control; mA and/or kV adjustment per patient size (includes targeted exams where dose is matc hed to clinical indication); or iterative reconstruction. FINDINGS: Previously described focus of hemorrhage in the RIGHT external capsule has resolved compared to previ ous. No evidence of new or recurrent hemorrhage. Moderate small vessel changes. Mild parenchymal volu me loss. Intracranial vascular calcification. Paranasal sinuses and mastoid air cells are well aerate d. Normal posterior nasopharynx and parapharyngeal fat. INTRACRANIAL CTA: Distal vertebral arteries are patent. RIGHT dominant vertebral artery. Basilar artery is patent. Norm al vascularity to the REVIT DRAFTER territory bilaterally. Persistent RIGHT REVIT DRAFTER. Both ICAs are patent at the skull base. Normal vascularity to the MARTIN and MCA territories bilaterally . No evidence of high-grade proximal stenosis or aneurysm. Small LEFT A1 segment. Patent anterior com municating artery. No evidence of vascular malformation in the area of prior hemorrhage IMPRESSION: 1. Previously described focus of hemorrhage in the RIGHT external capsule has resolved. 2. No evidence of proximal flow-limiting stenosis or aneurysm. 3. Persistent RIGHT REVIT DRAFTER. 4. Mild intracranial atheromatous disease. 5. No other suspicious findings.
[2023-08-06] MEDS: iohexol 350 mg/mL 500 mL Btl (per mL) IV (07:15)
== END 2023-08-06 06:44 | disposition home or self-care (01) ==
LOC: RAD 06:43
PROVIDERS: PCP Internal Medicine; Visit Provider Neurological Surgery
DX: S06.34AD Traumatic hemorrhage of right cerebrum with loss of consciousness status unknown, subsequent encounter (principal); V89.2XXD Person injured in unspecified motor-vehicle accident, traffic, subsequent encounter; Q28.1 Other malformations of precerebral vessels; M48.062 Spinal stenosis, lumbar region with neurogenic claudication; I67.2 Cerebral atherosclerosis; Z86.73 Personal history of transient ischemic attack (TIA), and cerebral infarction without residual deficits
CPT/HCPCS: 70496; 99213; Q9967

== ENCOUNTER 2023-09-13 08:53 | Outpatient (CLI) | payer MEDICARE, SELFPAY ==
--- NOTE | 2023-09-13 09:04 | XR_ITS ---
WS: [id number] XR lumbar spine 2-3V* [id number] REASON FOR EXAM: LOSS OF BALANCE/LOW BACK PAIN FINDINGS: Moderate rotatory scoliosis convex left. Relatively normal lordosis of the lumbar spine. No focal vertebral body abnormality. Significant narrowing of the L5-S1 disc space. Remaining disc spaces are intact and relatively well p reserved. No significant listhesis. Moderate degenerative hypertrophic change in the facet joints at L4-L5 and L5-S1. IMPRESSION: Degenerative spondylosis as above. Lumbar spine appears unchanged compared to 04/23/2023.
== END 2023-09-13 08:54 | disposition home or self-care (01) ==
PROVIDERS: PCP Internal Medicine; Visit Provider Nurse Practitioner Family
DX: R26.89 Other abnormalities of gait and mobility (principal); M47.817 Spondylosis without myelopathy or radiculopathy, lumbosacral region
CPT/HCPCS: 72100

== ENCOUNTER → 2023-10-11 13:02 | Outpatient (BNVA) | payer MEDICARE, SELFPAY | PROVIDERS: PCP Internal Medicine; Visit Provider Orthopaedic Surgery | DX: M48.062 Spinal stenosis, lumbar region with neurogenic claudication (principal) | CPT/HCPCS: 72110; 99214 ==

== ENCOUNTER → 2023-11-06 09:01 | Outpatient (BNVA) | payer MEDICARE, SELFPAY | PROVIDERS: PCP Internal Medicine; Visit Provider Anesthesiology Pain Medicine | DX: M48.062 Spinal stenosis, lumbar region with neurogenic claudication (principal) | CPT/HCPCS: 99204 ==

== ENCOUNTER → 2024-03-26 11:12 | Outpatient (BNVA) | payer MEDICARE, SELFPAY | PROVIDERS: PCP Internal Medicine; Visit Provider Internal Medicine Cardiovascular Disease | DX: I13.0 Hypertensive heart and chronic kidney disease with heart failure and stage 1 through stage 4 chronic kidney disease, or unspecified chronic kidney disease (principal); N18.9 Chronic kidney disease, unspecified; I25.5 Ischemic cardiomyopathy; E78.5 Hyperlipidemia, unspecified; I25.10 Atherosclerotic heart disease of native coronary artery without angina pectoris | CPT/HCPCS: 99213 ==

== ENCOUNTER 2024-09-09 17:55 | Observation (INO) | payer MEDICARE, SELFPAY ==
--- NOTE | 2024-09-09 17:58 | ECG_ITS ---
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 Measurements Intervals [place] Rate: 65 P: 56 MO: 146 QRS: 25 QRSD: 81 T: 88 QT: 383 QTc: 400 Interpretive Statements SINUS RHYTHM ANTEROSEPTAL MYOCARDIAL INFARCTION , POSSIBLY ACUTE [40+ ms Q WAVE IN V1-V4] ACUTE AR INTERPRETATION BASED ON A DEFAULT AGE OF 40 YEARS Compared to ECG 07/12/2023 14:41:17 Sinus arrhythmia no longer present Atrial abnormality no longer present Myocardial infarct finding still present Electronically Signed On 09-10-2024 18:18:38 SUSPECT ARTIST SUPERVISOR by Marta Novak M.D. [email or web address]
--- NOTE | 2024-09-09 17:58 | ECG_ITS ---
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 Measurements Intervals [place] Rate: 65 P: 56 MA: 146 QRS: 25 QRSD: 81 T: 88 QT: 383 QTc: 400 Interpretive Statements SINUS RHYTHM ANTEROSEPTAL MYOCARDIAL INFARCTION , POSSIBLY ACUTE [40+ ms Q WAVE IN V1-V4] ACUTE VA INTERPRETATION BASED ON A DEFAULT AGE OF 40 YEARS Compared to ECG 07/12/2023 14:41:17 Sinus arrhythmia no longer present Atrial abnormality no longer present Myocardial infarct finding still present Electronically Signed On 09-10-2024 18:18:32 [employer]ER [employer]IVER by Marta Novak M.D. [id number]
[2024-09-09 18:02] VITALS: BP 180/87; PULSE 64; RESP 18; TEMP 36.6; O2SAT 94
[2024-09-09 18:04] VITALS: PULSE 61; RESP 16; O2SAT 97
[2024-09-09 18:25] LABS: Basophils # 0.1 10^3/uL (0.0-0.1); Basophils % 0.7 %; Eosinophils # 0.2 10^3/uL (0.0-0.8); Hematocrit 44.3 % (37-53); Lymphocytes # 1.5 10^3/uL (0.8-4.8); Lymphocytes % 20.8 %; Mean Corpuscular HGB Conc 33.2 g/dL (30-55); Mean Corpuscular Hemoglobin 31.5 pg (27-33); Mean Corpuscular Volume 95.1 fl (82-101); Mean Platelet Volume 8.8 fL (7.4-10.4); Monocytes # 0.6 10^3/uL (0.2-0.9); Monocytes % 7.4 %; Neutrophils # 5.08 10^3/uL (1.8-7.7); Neutrophils % 68.8 %; Nucleated Red Blood Cells % 0 %; Platelet Count 252 10^3/cmm (157-399); Red Blood Count 4.66 10^6/uL (3.85-5.65); Red Cell Distribution Width 11.7 % (12.1-15.1); White Blood Count 7.39 10^3/uL (3.29-11.43)
[2024-09-09 18:37] LABS: Troponin(5th) Baseline 15 ng/L (0-15)
[2024-09-09 18:46] LABS: Alanine Aminotransferase 12 U/L (0-41); Albumin Level 4.5 g/dL (3.5-5.2); Alkaline Phosphatase 97 U/L (40-130); Blood Urea Nitrogen 21 mg/dL (8-23); Calcium 10.2 mg/dL (8.5-10.5); Carbon Dioxide 25 mmol/L (22-29); Chloride 103 mmol/L (98-107); Creatinine Clr Calc Pharmacy 42.9553; Globulin 2.3 g/dL (1.3-4.6); Glucose 105 mg/dL (65-115); NT Pro B Type Natriuretic Pept 664 pg/mL (0-450); Osmolality Calculated 289 mOsm/kg (285-295); Sodium 138 mmol/L (136-145); Total Bilirubin 0.2 mg/dL (0.15-1.2); Total Protein 6.8 g/dL (6.6-8.7)
--- NOTE | 2024-09-09 18:49 | ED_ITS ---
HPI - Chest Pain 2 General: Chief Complaint: Chest Pain Stated Complaint: CP SOB Time Seen by Provider: 09/09/24 18:10 History of Present Illness: 79-year-old man with history of coronary artery disease status post multiple stents on clopidogrel and hypertension who presents the emergency room with chest pain. He has been having episodes of central chest pain with some discomfort in his arms bilaterally. Currently his chest pain-free. He is hypertensive on presentation. He says when he is been having the chest pain and episodes over the last day or so he has been hypertensive when it happens. He says in the past when he had heart attacks he did not have chest pain. He says his first heart attack he had elbow pain. No cough. No fevers. No lower extremity swelling. No abdominal pain. No nausea or vomiting. No altered mental status. Related Data Home Medications Medication Instructions Recorded Confirmed fluticasone propionate 50 2 spray intranasal .prn 01/09/21 09/09/24 mcg/actuation nasal spray,suspension (Flonase Allergy Relief) cetirizine 10 mg tablet 10 mg PO DAILY 11/01/21 09/09/24 Previous Rx's Medication Instructions Recorded carvedilol 3.125 mg tablet (Coreg) 3.125 mg PO BID #180 tabs 09/09/23 amlodipine 10 mg tablet 10 mg PO DAILY #90 tabs 09/25/23 ezetimibe 10 mg tablet (Zetia) 10 mg PO DAILY #90 tabs 01/17/24 clopidogrel 75 mg tablet 75 mg PO DAILY #90 tabs 03/16/24 Allergies Allergy/AdvReac Type Severity Reaction Status Date / Time evolocumab Allergy rash Verified 09/09/24 18:04 [From Romain Danielle] meloxicam Allergy rash Verified 09/09/24 18:04 Review of Systems 2 Narrative: Constitutional symptoms: Negative except as documented in HPI. Skin symptoms: Negative except as documented in HPI. Eye symptoms: Negative except as documented in HPI. ENMT symptoms: Negative except as documented in HPI. Respiratory symptoms: Negative except as documented in HPI. Cardiovascular symptoms: Negative except as documented in HPI. Gastrointestinal symptoms: Negative except as documented in HPI. Genitourinary symptoms: Negative except as documented in HPI. Musculoskeletal symptoms: Negative except as documented in HPI. Neurologic symptoms: Negative except as documented in HPI. Psychiatric symptoms: Negative except as documented in HPI. Endocrine symptoms: Negative except as documented in HPI. PFSH ED 2 PFSH: Medical History (Updated 09/09/24 @ 21:37 by Monserrat Jeff MD) CVA (cerebral vascular accident) Hypothyroidism CKD (chronic kidney disease) -Renal function stable ASHD (arteriosclerotic heart disease) Myocardial infarction Dyslipidemia -Lipid panel noted, on statin Ischemic cardiomyopathy PUD (peptic ulcer disease) HTN (hypertension) Erectile dysfunction Prostate cancer Surgical History S/P tonsillectomy S/P cataract extraction Hx of heart artery stent LAD stent Hx of hernia repair Family History Father , PROSTATE CANCER Cancer Mother , OVARIAN CANCER Cancer Social History Smoking and tobacco/nicotine status: never used tobacco/nicotine Alcohol intake: never Substance/Drug Use: never Marital status: Current occupational status: retired Physical Exam 2 Narrative: EXAM NARRATIVE: General: Alert, no acute distress. Skin: Warm, dry. Head: Normocephalic, atraumatic. Neck: Supple, trachea midline. Eye: Extraocular movements are intact. Ears, nose, mouth and throat: mucosa moist. Cardiovascular: Regular, Normal peripheral perfusion. Respiratory: Lungs are clear to auscultation, respirations are non-labored, breath sounds are equal, Symmetrical chest wall expansion. Gastrointestinal: Soft, Nontender, Non distended Musculoskeletal: Normal ROM, no deformity. Neurological: Alert and oriented, No focal neurological deficit observed. Psychiatric: Cooperative, appropriate mood & affect. Course 2 Vital Signs: Vital signs: Vital Signs Temperature 97.8 F 09/09/24 18:02 Pulse Rate 77 09/09/24 21:25 Respiratory Rate 18 09/09/24 21:25 Blood Pressure 189/101 09/09/24 21:25 Pulse Oximetry 99 09/09/24 21:25 Oxygen Delivery Me thod Room Air 09/09/24 20:50 MDM - Chest Pain Medical Decision Making Differential diagnosis for patient with chest pain includes but is not limited to and based on the above HPI, review of systems and physical exam: Pneumonia. unstable angina. angina. Acute coronary syndrome / MA. Pulmonary embolism. Costochondritis / musculoskeletal. Pleurisy. Pericarditis. Esophageal spasm. Pancreatis. Cholecystitis. Orders placed to evaluate differential diagnosis based on the above differential, HPI and physical exam Chest x-ray: No acute process. No infiltrate. No pneumothorax. This was reviewed and interpreted by myself the emergency room physician. I also reviewed the radiology report. EKG: Time 1758. Rate 65. Normal sinus rhythm, some ST elevation in leads V2 and V3. This appears similar to EKG done in June 2023. no ectopy, normal WI & QRS intervals, This was reviewed and interpreted by myself the ER physician at 1800. Lab Review: Laboratory results were reviewed and interpreted by myself the emergency room physician. No leukocytosis. No anemia. BUN and creatinine are stable at his baseline at 21 and 1.4. Initial troponin was 13. Repeat troponin was 28. This has been a significant delta 15. I reviewed the patient's medical record. HEART Pathway for Early Discharge in Acute Chest Pain from [facility] on 09/09/2024 All calculations should be rechecked by clinician prior to use RESULT SUMMARY: 8 points HEART Pathway Score High risk 12-65% 30-day MACE Cardiology consultation and admission recommended. Further testing indicated. INPUTS: History ?> 2 = Highly suspicious EKG ?> 1 = Non-specific repolarization disturbance Age ?> 2 = >=5 Risk factors ?> 2 = >= risk factors or history of atherosclerotic disease Initial troponin ?> 1 = 1-3x normal limit Reexamination: Patient remained stable. No increased work of breathing. No altered mental status. No focal motor deficits. Patient is currently chest pain-free Consultation: I spoke with Dr. Galeano who is on-call for the hospitalist service who agrees to admission. Assessment and plan: Chest pain Coronary artery disease Elevated troponin -I discussed the patient with the hospitalist on-call who is admitting the patient. - Discussed findings and plan with patient. Answered any questions. - All laboratory values were reviewed and interpreted personally by myself, the ER physician - All imaging was reviewed and interpreted personally by myself, the ER physician. - Evaluation and treatment of this problem were appropriate in the emergency setting Lab Data 09/09/24 18:10 09/09/24 18:10 Radiology Impressions Chest X-Ray 09/09/24 18:51 IMPRESSION: No focal consolidation. Laboratory Results WBC 7.39 10^3/uL (3.29-11.43) 09/09/24 18:10 RBC 4.66 10^6/uL (3.85-5.65) 09/09/24 18:10 Hgb 14.70 g/dL (11.27-16.99) 09/09/24 18:10 Hct 44.3 % (37-53) 09/09/24 18:10 MCV 95.1 fl (82-101) 09/09/24 18:10 MCH 31.5 pg (27-33) 09/09/24 18:10 MCHC 33.2 g/dL (30-55) 09/09/24 18:10 RDW 11.7 % (12.1-15.1) L 09/09/24 18:10 Plt Count 252 10^3/cmm (157-399) 09/09/24 18:10 MPV 8.8 fL (7.4-10.4) 09/09/24 18:10 Neut % (Auto) 68.8 % 09/09/24 18:10 Lymph % (Auto) 20.8 % 09/09/24 18:10 Motley % (Auto) 7.4 % 09/09/24 18:10 Eos % (Auto) 2.0 % 09/09/24 18:10 Baso % (Auto) 0.7 % 09/09/24 18:10 Neut # (Auto) 5.08 10^3/uL (1.8-7.7) 09/09/24 18:10 Lymph # (Auto) 1.5 10^3/uL (0.8-4.8) 09/09/24 18:10 Motley # (Auto) 0.6 10^3/uL (0.2-0.9) 09/09/24 18:10 Eos # (Auto) 0.2 10^3/uL (0.0-0.8) 09/09/24 18:10 Baso # (Auto) 0.1 10^3/uL (0.0-0.1) 09/09/24 18:10 Nucleated RBC % (auto) 0 % 09/09/24 18:10 Nucleated RBCs # 0.0 /100WBC 09/09/24 18:10 D-Dimer 0.46 ug/mLFEU (0-0.59) 09/09/24 18:10 Sodium 138 mmol/L (136-145) 09/09/24 18:10 Potassium 4.3 mmol/L (3.5-5.1) 09/09/24 18:10 Chloride 103 mmol/L (98-107) 09/09/24 18:10 Carbon Dioxide 25 mmol/L (22-29) 09/09/24 18:10 Anion Gap 14.3 (5-19) 09/09/24 18:10 BUN 21 mg/dL (8-23) 09/09/24 18:10 Creatinine 1.4 mg/dL (0.7-1.2) H 09/09/24 18:10 GFR Calculation Not Reportable 09/09/24 18:10 Glucose 105 mg/dL (65-115) 09/09/24 18:10 Calculated Osmolality 289 mOsm/kg (285-295) 09/09/24 18:10 Calcium 10.2 mg/dL (8.5-10.5) 09/09/24 18:10 Total Bilirubin 0.2 mg/dL (0.15-1.2) 09/09/24 18:10 AST 19 U/L (0-40) 09/09/24 18:10 ALT 12 U/L (0-41) 09/09/24 18:10 Alkaline Phosphatase 97 U/L (40-130) 09/09/24 18:10 Troponin T Baseline 15 ng/L (0-15) 09/09/24 18:10 Troponin T 120 Minute 27.28 ng/L (0-15) H 09/09/24 20:20 Delta Troponin T 12.28 ABS# (0-10) H* 09/09/24 20:20 NT-Pro-B Natriuret Pep 664 pg/mL (0-450) H 09/09/24 18:10 Total Protein 6.8 g/dL (6.6-8.7) 09/09/24 18:10 Albumin 4.5 g/dL (3.5-5.2) 09/09/24 18:10 Globulin 2.3 g/dL (1.3-4.6) 09/09/24 18:10 All radiology interpretation(s) finalized by discharge Clincial Decision Support The following clinical decision support tools were used to aid in care of the patient HEART Score -> History: Highly Suspicious, EKG: Non-specific Changes, Age: 65 or more yrs, Risk Factors: >/=3 Risk Factors, Troponin: Baseline Trop 16-45 ng/L. Resulting HEART Score: 8. Discharge Plan Discharge Patient Disposition: Admitted As Inpatient Admit Provider: Sobeida Galeano Clinical Impression: Chest pain, Coronary artery disease Condition: Stable Coding Level of Care Code ED [employer] for Hannah Saunders
[2024-09-09 18:51] LABS: Anion Gap 14.3 (5-19); Aspartate Amino Transferase 19 U/L (0-40); Potassium 4.3 mmol/L (3.5-5.1)
--- NOTE | 2024-09-09 18:51 | XRR_ITS ---
PROCEDURE INFORMATION: Exam: XR Chest Exam date and time: 09/09/2024 6:55 PM Age: 79 years old Clinical indication: Pain; Chest pressure; Prior surgery; Surgery date: 6+ months; Surgery type: Stents; Additional info: Chest pain TECHNIQUE: Imaging protocol: Radiologic exam of the chest. Views: 1 view. COMPARISON: CR XR chest 1V portable [id number] 10/10/2022 9:15 PM FINDINGS: Lungs: Atelectasis versus scarring in the left lung base. No focal consolidation. Pleural spaces: Unremarkable. No pleural effusion. No pneumothorax. Heart/Mediastinum: Coronary artery stents present. Bones/joints: Unremarkable. XR/XR chest 1V portable [id number] IMPRESSION: No focal consolidation.
--- NOTE | 2024-09-09 19:57 | P.HP_ITS ---
Providers/Chief Complaint 2 Primary Care Provider: Glenys Sears MD Chief Complaint: CP SOB History of Present Illness Rafa Ramirez is a 79 year old male with history of CABG coronary disease 5 stents in the past, last stent was done 2 years ago, he has history of schema cardiomyopathy 2021 coronary angiogram showed severe multivessel coronary artery disease including NUCLEAR MEDICINE TECHNICIAN of LAD, severe OM1, OM 2 and RCA stenosis. Patient underwent CT surgery evaluation and after heart team approach and discussion with patient, plan is to perform multivessel PCI of OM1, OM 2 and RCA and medically treat NUCLEAR MEDICINE TECHNICIAN of LAD at this time. Patient underwent successful revascularization of OM1, OM 2 and RCA Presented today with chief complaint of bilateral elbow pain and chest discomfort. Patient is saying that 6 years ago when LAD stent was placed he had right elbow pain. His symptoms are always atypical. Patient stating that he was at rest when his elbow started hurting on 3:30 PM today, it associated with mild substernal chest discomfort which lasted for about an hour until he took a hot shower. It was not associated with fever, diarrhea, vomiting or diaphoresis. 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 Compliant with his medications. At the time evaluation is chest pain-free, first troponin is 15 I do not see any new change on his EKG as compared to previous EKGs, it is a sinus rhythm atrial enlargement old myocardial infarction changes with deep Q waves anteroseptal leads Review of Systems 2 Const: Denies: fever(s) Eyes: Denies: change in vision ENMT: Denies: throat pain Card: Reports: chest pain Resp: Denies: dyspnea Medications/Allergies Home Medications Medication Instructions Recorded Confirmed Last Taken Type fluticasone propionate 50 2 spray intranasal .prn 01/09/21 03/26/24 11/10/21 History mcg/actuation nasal spray,suspension (Flonase Allergy Relief) cetirizine 10 mg tablet 10 mg PO DAILY 11/01/21 03/26/24 07/12/23 History carvedilol 3.125 mg tablet (Coreg) 3.125 mg PO BID #180 tabs 09/09/23 03/26/24 Unknown Rx amlodipine 10 mg tablet 10 mg PO DAILY #90 tabs 09/25/23 03/26/24 Unknown Rx ezetimibe 10 mg tablet (Zetia) 10 mg PO DAILY #90 tabs 01/17/24 03/26/24 Unknown Rx clopidogrel 75 mg tablet 75 mg PO DAILY #90 tabs 03/16/24 03/26/24 Unknown Rx Allergies Allergy/AdvReac Type Severity Reaction Status Date / Time evolocumab Allergy rash Verified 09/09/24 18:04 [From Romain Danielle] meloxicam Allergy rash Verified 09/09/24 18:04 PFSH Acute 2 PFSH: Medical History (Updated 09/09/24 @ 20:52 by Sobeida Galeano MD) CVA (cerebral vascular accident) Hypothyroidism CKD (chronic kidney disease) -Renal function stable ASHD (arteriosclerotic heart disease) Myocardial infarction Dyslipidemia -Lipid panel noted, on statin Ischemic cardiomyopathy PUD (peptic ulcer disease) HTN (hypertension) Erectile dysfunction Prostate cancer Surgical History S/P tonsillectomy S/P cataract extraction Hx of heart artery stent LAD stent Hx of hernia repair Family History Father , PROSTATE CANCER Cancer Mother , OVARIAN CANCER Cancer Social History Smoking and tobacco/nicotine status: never used tobacco/nicotine Alcohol intake: never Substance/Drug Use: never Marital status: Current occupational status: retired Vitals/I&O/Wt Last Vital Signs Temp 97.8 F 09/09/24 18:02 Pulse 61 09/09/24 18:04 Resp 16 09/09/24 18:04 BP 180/87 09/09/24 18:02 Pulse Ox 97 09/09/24 18:04 O2 Del Method Room Air 09/09/24 18:02 Weight last 48 hrs Weight 65.771 kg Physical Exam 2 Narrative: Awake and alert Euvolemic GCS 15 Currently on room air Hemodynamic stable Nonfocal neuroexam Pleasant and cooperative Patient is stating that he has chronic dysarthria since childhood it is hard to understand his words sometimes, at the bedside is helping feeling and S1, S2 No active chest pain Data 09/09/24 18:10 09/09/24 18:10 A&P Assessment and plan (1) HTN (hypertension): Qualifiers: Hypertension type: essential hypertension Qualified Code(s): I10 - Essential (primary) hypertension (2) Ischemic cardiomyopathy: (3) 3-vessel coronary artery disease: (4) CKD (chronic kidney disease): Qualifiers: Chronic kidney disease stage: unspecified stage Qualified Code(s): N 18.9 - Chronic kidney disease, unspecified (5) Prostate cancer: (6) Lumbar stenosis with neurogenic claudication: (7) Atypical chest pain: Plan Atypical chest pain Significant established coronary disease Multiple stents in the past No active chest pain at the time of evaluation Patient main concern was pain in the elbow Will request uric acid Will require stress test in the morning Will request echo Will keep him n.p.o. after midnight Continue antihypertensive regimen Cardiac diet for now and then n.p.o. GI cocktail Protonix Will use aspirin, Plavix, request D-dimer to rule out thromboembolic disease however suspicion is low considering active lifestyle Chronic kidney disease: No acute worsening Full code DVT prophylaxis: Heparin Attestations 2 Medical Necessity Statement*: Anticipating discharge within 40 hours Diagnoses HTN (hypertension) I10 Hypertension type: essential hypertension Ischemic cardiomyopathy I25.5 3-vessel coronary artery disease I25.10 Chronic kidney disease, unspecified CKD stage N18.9 Chronic kidney disease stage: unspecified stage Prostate cancer C61 Lumbar stenosis with neurogenic claudication M48.062 Atypical chest pain R07.89
[2024-09-09 20:34] VITALS: BP 157/103; PULSE 100; RESP 16; O2SAT 92
[2024-09-09 20:49] VITALS: BMI 21.9
[2024-09-09 20:50] VITALS: BP 198/114; PULSE 71; RESP 18; O2SAT 99
[2024-09-09 20:55] LABS: Troponin 5 2HR 27.28 ng/L (0-15)
--- NOTE | 2024-09-09 20:55 | USCV_ITS ---
Rafa Ramirez Age: 79 Gender: M : 1945 Exam Date: 09/09/2024 21:54 Ordering Phys: Sobeida Galeano MD Technologist: JOSHUA Exam Location: [facility] [place] Indication: chest pain, history of CAD s/p multiple cardiac stents. HTN BP: 157 / 103 HR: 63 Rhythm: Sinus Technical Quality: Adequate MEASUREMENTS (Male / Female) Normal Values 2D ECHO LV Diastolic Diameter PLAX 4.6 cm 4.2 - 5.9 / 3.9 - 5.3 cm IVS Diastolic Thickness 1.7 cm 0.6 - 1.0 / 0.6 - 0.9 cm IVS Systolic Thickness 2.3 cm LVPW Diastolic Thickness 1.4 cm 0.6 - 1.0 / 0.6 - 0.9 cm LVPW Systolic Thickness 1.9 cm LVOT Diameter 1.9 cm LV Ejection Fraction 2D Teich 70.9 % LV Ejection Fraction MOD 4C 56.1 % LV Ejection Fraction MOD 2C 61.0 % LV Ejection Fraction 2C AL 61.0 % LA Diameter 3.1 cm Aorta at Sinotubular Diameter 3.0 cm IVC Diameter 0.8 cm M-MODE LA Ao Ratio MM 1.5 AV Cusp Separation MM 1.5 cm DOPPLER AV Peak Velocity 193.0 cm/s LVOT Peak Velocity 77.0 cm/s AV Area Cont Eq vti 1.6 cm squared AV Area Cont Eq pk 1.1 cm squared MV Peak Velocity 139.0 cm/s MV Area PHT 3.9 cm squared Mitral E to A Ratio 0.7 TR Peak Velocity 274.0 cm/s TR Peak Gradient 30.0 mmHg TV Peak E Velocity 30.0 cm/s PV Peak Velocity 132.0 cm/s FINDINGS Left Ventricle Moderate to severe hypokinesia of the mid and apical septum and the anteroseptal segments. Ejection fraction around 50% (visual). Mild left ventricular hypertrophy. Grade I/IV diastolic dysfunction (abnormal relaxation filling pattern), normal to mildly elevated filling pressures. Right Ventricle The right ventricle is normal in size and function. Right Atrium Mildly increased right atrial size. Left Atrium Mildly increased left atrial size. Mitral Valve Mild mitral annular calcification. Mild to moderate mitral valve regurgitation. Aortic Valve Thickened aortic valve. Aortic valve sclerosis. Tricuspid Valve Mild tricuspid valve regurgitation. Estimated pulmonary artery peak systolic pressure 33 mmHg Pulmonic Valve Trace pulmonary valve regurgitation. Pericardium Normal pericardium without effusion. Aorta Normal ascending aorta dimension. IVC Normal inferior vena cava. CONCLUSIONS Moderate to severe hypokinesia of the mid and apical septum and the anteroseptal segments. Ejection fraction around 50%. (visual). Mild left ventricular hypertrophy. Grade I/IV diastolic dysfunction (abnormal relaxation filling pattern), normal to mildly elevated filling pressures. Mild biatrial enlargement. Mild mitral annular calcification. Mild to moderate mitral valve regurgitation. Thickened aortic valve. Features of aortic valve sclerosis Mild tricuspid valve regurgitation. Estimated pulmonary artery peak systolic pressure 33 mmHg. Trace pulmonary valve regurgitation. Compared to the study from 02/20/2022, there may not be a significant change in the ejection fraction Dr Marta Novak MD [facility] (Electronically Signed) Final Date: 10 September 2024 09:21 S
[2024-09-09 20:59] LABS: Troponin 5 2HR Delta 12.28 ABS# (0-10)
[2024-09-09 21:08] LABS: D Dimer 0.46 ug/mLFEU (0-0.59)
--- NOTE | 2024-09-09 21:12 | ECG_ITS ---
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 Interpretive Statements Lung unchanged pre/post procedure; Intraprocedure shortess of breath; Symptoms resoled by discharge [id number]
[2024-09-09 21:25] VITALS: BP 189/101; PULSE 77; RESP 18; O2SAT 99
[2024-09-09] MEDS: heparin 5,000 unit/mL INJ 1 mL 5000 UNIT SUBCUT (21:36)
[2024-09-09 21:51] LABS: Estmated Average Glucose 114; Hemoglobin A1C 5.6 % (4.0-6.0)
[2024-09-09 22:00] VITALS: PULSE 57
[2024-09-10] VITALS (11 sets, daily range): BP systolic 150–180; BP diastolic 82–105; PULSE 55–86; RESP 14–24; TEMP 36.3–37.1; O2SAT 95–99
--- NOTE | 2024-09-10 00:11 | ECG_ITS ---
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 Measurements Intervals [place] Rate: 56 P: 42 SC: 135 QRS: -11 QRSD: 91 T: 61 QT: 398 QTc: 385 Interpretive Statements SINUS BRADYCARDIA POSSIBLE LEFT ATRIAL ENLARGEMENT [-0.1mV P-WAVE IN V1/V2] ANTEROSEPTAL MYOCARDIAL INFARCTION , OF INDETERMINATE AGE [40+ ms Q WAVE IN V1-V4] Compared to ECG 09/09/2024 17:58:46 Sinus rhythm no longer present Myocardial infarct finding still present Electronically Signed On 09-10-2024 18:26:25 RESIDENT PHYSICIAN IN RADIOLOGY by Marta Novak M.D. [id number]
[2024-09-10 01:04] LABS: Troponin 5 6HR 51.42 ng/L (0-15)
[2024-09-10 01:09] LABS: Troponin 5 6HR Delta 36.42 ng/L (0-12)
[2024-09-10 04:31] LABS: Anion Gap 11.8 (5-19); Blood Urea Nitrogen 20 mg/dL (8-23); Calcium 10.1 mg/dL (8.5-10.5); Carbon Dioxide 26 mmol/L (22-29); Chloride 105 mmol/L (98-107); Creatinine Clr Calc Pharmacy 46.6868; Glucose 88 mg/dL (65-115); Magnesium 2.4 mg/dL (1.7-2.3); Osmolality Calculated 290 mOsm/kg (285-295); Potassium 3.8 mmol/L (3.5-5.1); Sodium 139 mmol/L (136-145)
[2024-09-10] MEDS: regadenoson 0.4 Mg/5 ml Syringe IVP (07:03)
[2024-09-10] MEDS: clopidogrel 75 mg Tablet PO (08:49)
[2024-09-10] MEDS: pantoprazole 40 mg SDV IVP ×2 (08:49→16:12)
[2024-09-10] MEDS: amlodipine 10 mg Tablet PO (08:50)
[2024-09-10] MEDS: ezetimibe 10 mg Tablet PO (08:50)
[2024-09-10] MEDS: carvedilol 3.125 mg Tablet PO ×2 (08:50→16:12)
[2024-09-10] MEDS: heparin 5,000 unit/mL INJ 1 mL 5000 UNIT SUBCUT (08:50)
--- NOTE | 2024-09-10 09:36 | P.CONIM_ITS ---
Providers/Reason For Consult 2 Consulting Physician/Specialty*: David Novak MD/cardiology Reason for Consult*: Patient with abnormal Myocardial perfusion imaging, history of ASHD and multiple PCI's Requesting Physician: Dr. Da Silva Attending Physician: Joshua Tran MD Primary Care Provider: Glenys Sears MD History of Present Illness History of Present Illness Rafa Ramirez is a 79 year old male with a history of atherosclerotic heart diseas and multiple PCI's in the past, he is presenting with complaints of right arm pain. This patient had his first coronary event approximately 13 years ago. He presented with acute ST elevation NJ involving the left descending artery. He underwent PCI of the LAD at that time. Subsequent angiograms revealed total occlusion of the LAD. Most recent coronary angiogram was done in 2021. He was found to have high-grade lesions in the obtuse marginal arteries and right coronary artery. He was referred for surgical revascularization. But finally and he ended up and getting multivessel angioplasty. He had a PCI of the obtuse marginal 1, obtuse marginal 2 and the right coronary artery. Since then, he has been having episodes of arm pain. According the patient, he never had chest pain. Even when he had the ST elevation NJ, he was mostly having right arm pain. He had a Myocardial perfusion imaging in December of last year. He was found to have mostly fixed defect with a very small areas of reversible defect suggesting extensive myocardial scarring with a small areas of carlos eduardo-infarct ischemia. Based on the findings, it was opted to treat him medically. According the patient, he has been having this right arm pain off and on which usually lasts for couple of minutes and then goes away by itself. But yesterday afternoon, he started having the pain around 3:00. The pains apparently has not left since then. Even now he has some mild discomfort in the right arm. He has no chest pain or shortness of breath. No palpitations, dizziness or syncopal episode. No other specific complaints. He has a history of hypertension, dyslipidemia, reactive airway disease. He has been compliant with medications. No smoking abuse or alcohol abuse. He has a at home she is getting treatment for breast cancer. When she is not able to drive. He wants to get back home as soon as possible. He does not want to stay overnight. Review of Systems 2 Narrative: CONSTITUTIONAL: No fever or chills. EYES: No blurring of vision or other visual disturbances lately. ENT: No hoarseness of voice, auditory disturbances or sore throat. CARDIOVASCULAR: As mentioned above. RESPIRATORY: No significant cough. GASTROINTESTINAL: No hematemesis or melena. GENITOURINARY: No dysuria or hematuria. INTEGUMENTARY: No skin rashes or history of skin cancer. NEURO: History of CVA PSYCHIATRIC: No history of psychosis or major depression. HEMATOLOGIC: No bleeding disorders or significant anemia. ENDOCRINE: No history of polyuria or polydipsia. MUSCULOSKELETAL: No recent joint pain or swelling. ALLERGY/IMMUNOLOGY: As mentioned above. Medications/Allergies Home Medications Medication Instructions Recorded Confirmed Last Taken Type fluticasone propionate 50 2 spray intranasal .prn 01/09/21 09/09/24 11/10/21 History mcg/actuation nasal spray,suspension (Flonase Allergy Relief) cetirizine 10 mg tablet 10 mg PO DAILY 11/01/21 09/09/24 09/09/24 09:00 History carvedilol 3.125 mg tablet (Coreg) 3.125 mg PO BID #180 tabs 09/09/23 09/09/24 09/09/24 09:00 Rx amlodipine 10 mg tablet 10 mg PO DAILY #90 tabs 09/25/23 09/09/24 09/09/24 09:00 Rx ezetimibe 10 mg tablet (Zetia) 10 mg PO DAILY #90 tabs 01/17/24 09/09/24 09/09/24 09:00 Rx clopidogrel 75 mg tablet 75 mg PO DAILY #90 tabs 03/16/24 09/09/24 09/09/24 09:00 Rx Allergies Allergy/AdvReac Type Severity Reaction Status Date / Time evolocumab Allergy rash Verified 09/09/24 18:04 [From Romain Danielle] meloxicam Allergy rash Verified 09/09/24 18:04 Current Medications Generic Name Dose Route Start Last Admin Trade Name Freq PRN Reason Stop Dose Admin Amlodipine Besylate 10 mg 09/10/24 09:00 09/10/24 08:50 Amlodipine 10 Mg Tablet PO 10 mg DAILY OFRTINO Administration Atorvastatin Calcium 40 mg 09/09/24 21:12 09/09/24 21:15 Atorvastatin 40 Mg Tablet PO Not Given BEDTIME FORTINO Carvedilol 3.125 mg 09/10/24 09:00 09/10/24 08:50 Carvedilol 3.125 Mg Tablet PO 3.125 mg BID FORTINO Administration Clopidogrel Bisulfate 75 mg 09/10/24 09:00 09/10/24 08:49 Clopidogrel 75 Mg Tablet PO 75 mg DAILY FORTINO Administration Ezetimibe 10 mg 09/10/24 09:00 09/10/24 08:50 Ezetimibe 10 Mg Tablet PO 10 mg DAILY FORTINO Administration Pantoprazole Sodium 40 mg 09/10/24 09:00 09/10/24 08:49 Pantoprazole 40 Mg Sdv IVP 40 mg BID FORTINO Administration PFSH Acute 2 PFSH: Medical History CVA (cerebral vascular accident) Hypothyroidism CKD (chronic kidney disease) -Renal function stable ASHD (arteriosclerotic heart disease) Myocardial infarction Dyslipidemia -Lipid panel noted, on statin Ischemic cardiomyopathy PUD (peptic ulcer disease) HTN (hypertension) Erectile dysfunction Prostate cancer Surgical History S/P tonsillectomy S/P cataract extraction Hx of heart artery stent LAD stent Hx of hernia repair Family History Father , PROSTATE CANCER Cancer Mother , OVARIAN CANCER Cancer Social History Smoking and tobacco/nicotine status: never used tobacco/nicotine Alcohol intake: never Substance/Drug Use: never Marital status: Current occupational status: retired Vitals/I&O/Wt Last Vital Signs Temp 98.0 F 09/10/24 04:00 Pulse 61 09/10/24 08:00 Resp 18 09/10/24 08:00 BP 158/82 09/10/24 08:00 Pulse Ox 95 09/10/24 08:00 O2 Del Method Room Air 09/10/24 08:00 09/09/24 09/10/24 09/10/24 22:59 06:59 14:59 Intake Total 250 / 250 200 / 450 Balance 250 / 250 200 / 450 Weight last 48 hrs Weight 148 lb 8 oz Weight 148 lb 8 oz Weight 145 lb Data 09/10/24 03:37 09/10/24 03:37 Other Labs: Laboratory Last Values WBC 7.39 10^3/uL (3.29-11.43) 09/09/24 18:10 RBC 4.66 10^6/uL (3.85-5.65) 09/09/24 18:10 Hgb 14.70 g/dL (11.27-16.99) 09/09/24 18:10 Hct 44.3 % (37-53) 09/09/24 18:10 MCV 95.1 fl (82-101) 09/09/24 18:10 MCH 31.5 pg (27-33) 09/09/24 18:10 MCHC 33.2 g/dL (30-55) 09/09/24 18:10 RDW 11.7 % (12.1-15.1) L 09/09/24 18:10 Plt Count 234 10^3/cmm (157-399) 09/10/24 03:37 MPV 8.8 fL (7.4-10.4) 09/09/24 18:10 Neut % (Auto) 68.8 % 09/09/24 18:10 Lymph % (Auto) 20.8 % 09/09/24 18:10 [place] % (Auto) 7.4 % 09/09/24 18:10 Eos % (Auto) 2.0 % 09/09/24 18:10 Baso % (Auto) 0.7 % 09/09/24 18:10 Neut # (Auto) 5.08 10^3/uL (1.8-7.7) 09/09/24 18:10 Lymph # (Auto) 1.5 10^3/uL (0.8-4.8) 09/09/24 18:10 [place] # (Auto) 0.6 10^3/uL (0.2-0.9) 09/09/24 18:10 Eos # (Auto) 0.2 10^3/uL (0.0-0.8) 09/09/24 18:10 Baso # (Auto) 0.1 10^3/uL (0.0-0.1) 09/09/24 18:10 Nucleated RBC % (auto) 0 % 09/09/24 18:10 Nucleated RBCs # 0.0 /100WBC 09/09/24 18:10 D-Dimer 0.46 ug/mLFEU (0-0.59) 09/09/24 18:10 Sodium 139 mmol/L (136-145) 09/10/24 03:37 Potassium 3.8 mmol/L (3.5-5.1) 09/10/24 03:37 Chloride 105 mmol/L (98-107) 09/10/24 03:37 Carbon Dioxide 26 mmol/L (22-29) 09/10/24 03:37 Anion Gap 11.8 (5-19) 09/10/24 03:37 BUN 20 mg/dL (8-23) 09/10/24 03:37 Creatinine 1.3 mg/dL (0.7-1.2) H 09/10/24 03:37 GFR Calculation Not Reportable 09/10/24 03:37 Glucose 88 mg/dL (65-115) 09/10/24 03:37 Estimat Average Glucose 114 09/09/24 18:10 Hemoglobin A1c 5.6 % (4.0-6.0) 09/09/24 18:10 Calculated Osmolality 290 mOsm/kg (285-295) 09/10/24 03:37 Calcium 10.1 mg/dL (8.5-10.5) 09/10/24 03:37 Magnesium 2.4 mg/dL (1.7-2.3) H 09/10/24 03:37 Iron 79 ug/dL (59-158) 09/10/24 03:37 TIBC 230 mcg/dl 09/10/24 03:37 % Saturation 34.3 % (20-50) 09/10/24 03:37 Unsat Iron Binding 151 ug/dL (112-347) 09/10/24 03:37 Total Bilirubin 0.2 mg/dL (0.15-1.2) 09/09/24 18:10 AST 19 U/L (0-40) 09/09/24 18:10 ALT 12 U/L (0-41) 09/09/24 18:10 Alkaline Phosphatase 97 U/L (40-130) 09/09/24 18:10 Troponin T 5th Gen ng/L 66 ng/L (0-15) H 09/10/24 03:37 Troponin T Baseline 15 ng/L (0-15) 09/09/24 18:10 Troponin T 120 Minute 27.28 ng/L (0-15) H 09/09/24 20:20 Delta Troponin T 12.28 ABS# (0-10) H* 09/09/24 20:20 Troponin T Hi Sens 6Hr 51.42 ng/L (0-15) H 09/10/24 00:27 Troponin T Hi Sens 6Hr Delta 36.42 ng/L (0-12) H* 09/10/24 00:27 C-Reactive Protein 3.0 mg/L (0.0-4.9) 09/10/24 03:37 NT-Pro-B Natriuret Pep 664 pg/mL (0-450) H 09/09/24 18:10 Total Protein 6.8 g/dL (6.6-8.7) 09/09/24 18:10 Albumin 4.5 g/dL (3.5-5.2) 09/09/24 18:10 Globulin 2.3 g/dL (1.3-4.6) 09/09/24 18:10 Vitamin B12 312 pg/mL (232-1245) 09/10/24 03:37 TSH 5.26 uIU/mL (0.27-4.20) H 09/10/24 03:37 Other data: Echocardiogram on 09/09/2024 Moderate to severe hypokinesia of the mid and apical septum and the anteroseptal segments. Ejection fraction around 50%. (visual). Mild left ventricular hypertrophy. Grade I/IV diastolic dysfunction (abnormal relaxation filling pattern), normal to mildly elevated filling pressures. Mild biatrial enlargement. Mild mitral annular calcification. Mild to moderate mitral valve regurgitation. Thickened aortic valve. Features of aortic valve sclerosis Mild tricuspid valve regurgitation. Estimated pulmonary artery peak systolic pressure 33 mmHg. Trace pulmonary valve regurgitation. Compared to the study from 02/20/2022, there may not be a significant change in the ejection fraction Cardiac catheterization in 2021 * INDICATION: Staged PCI for multivessel CAD. Patient was evaluated by CT surgery and after heart team discussion decision was to undergo PCI of OM1, OM 2 and RCA. * Left Main has no disease. * Circumflex has no disease. * Proximal Left Anterior Descending: total occlusion, BHUPINDER: 0 flow. * Mid Right Coronary Artery: severe 90% stenosis, BHUPINDER: 3 flow. * First Obtuse Marginal Branch Segment to First Obtuse Marginal Branch Segment: significant 80% stenosis, BHUPINDER: 3 flow. * Second Obtuse Marginal Branch Segment: obstructive 70% stenosis, BHUPINDER: 3 flow. * Coronary angiography shows right dominance. A&P Assessment and plan (1) Elevated troponin: Patient's elevated troponin T, in view of the abnormal perfusion scan, may have suggest a non-ST elevation myocardial infarction. He continues to have some discomfort in the right upper extremity. Even though this is very atypical, he always had similar symptoms in the past even with his first heart attack. So most likely he may be having unstable anginal symptoms. He may be kept on the IV heparin for the time being. Other medications may be continued. (2) HTN (hypertension): Currently normotensive. May continue on the current medication. Qualifiers: Hypertension type: essential hypertension Qualified Code(s): I10 - Essential (primary) hypertension (3) Ischemic cardiomyopathy: The LV ejection fraction was around 50% by echocardiogram. This is essentially unchanged from the previous echocardiogram. (4) ASHD (arteriosclerotic heart disease): Patient had multiple PCI's in the past. The Perfusion scan revealed evidence of extensive myocardial scarring in the distribution of the left descending artery with some small areas of infarction or ischemia. Moderate area of ischemia mostly in the distribution of the right coronary artery. (5) CKD (chronic kidney disease): Kidney function seems to be stable. Patient requires IV hydration prior to the procedure Qualifiers: Chronic kidney disease stage: unspecified stage Qualified Code(s): N 18.9 - Chronic kidney disease, unspecified (6) Dyslipidemia: May continue on the current medications. Plan I discussed in detail with the patient and the implications of test findings and further treatment options. In order to further evaluate the coronary status, he requires a cardiac catheterization paroxysmal nocturnal dyspnea this was discussed with the risk and benefits. The risk of bleeding, hematoma, vascular injury, myocardial infarction, myocardial perforation, malignant cardiac arrhythmias ,CVA, renal failure and other concomitant complications were explained in detail. Patient understood this well and consented to proceed. As per patient's request, we may go ahead and do this this evening. Will continue with IV hydration with normal saline. In view of the chronic kidney disease, he carries a high risk for contrast-induced nephropathy. This was discussed in detail which the patient understood well. Based on the results of the above tests and the patient's clinical progress, further recommendations will be made. Thank you for the opportunity to evaluate this patient and make these recommendations Coding Level of Care Code 12397 Diagnoses Elevated troponin R79.89 HTN (hypertension) I10 Hypertension type: essential hypertension Ischemic cardiomyopathy I25.5 ASHD (arteriosclerotic heart disease) I25.10 Chronic kidney disease, unspecified CKD stage N18.9 Chronic kidney disease stage: unspecified stage Dyslipidemia E78.5
[2024-09-10 09:47] LABS: Platelet Count 234 10^3/cmm (157-399)
[2024-09-10 10:07] LABS: Troponin T (5th) Once 66 ng/L (0-15)
[2024-09-10 10:22] LABS: Iron 79 ug/dL (59-158); Percent Saturation 34.3 % (20-50); Thyroid Stimulating Hormone 5.26 uIU/mL (0.27-4.20); Total Iron Binding Capacity 230 mcg/dl; Unsaturated Iron Binding 151 ug/dL (112-347); Vitamin B12 312 pg/mL (232-1245)
[2024-09-10] MEDS: aspirin 325 mg EC Tablet PO (11:14)
[2024-09-10] MEDS: sodium chloride 0.9% 1,000 ML 50 ML IV (11:16)
[2024-09-10] MEDS: heparin drip 25,000 UNIT/500 ML PREMIX 19 UNIT IV (11:16)
--- NOTE | 2024-09-10 13:18 | PC.NURSE ---
Spoke with Dr Novak and received orders to stop heparin drip at 1530 and to increase fluids to 75ml/hr
--- NOTE | 2024-09-10 13:26 | W.PM.OPSUD ---
Surgery/Procedure H&P Update DATE OF PROCEDURE: September 10, 2024 DATE H&P PERFORMED: 09/10/24 H&P UPDATE INFORMATION: I have reviewed H&P completed within last 30 days, I have examined patient prior to procedure and No changes to prior documentation PREOP DIAGNOSIS: ASHD PRIMARY INDICATION FOR PROCEDURE: Abnormal Myocardial perfusion imaging, possible NSTEMI/status post multiple PCI's PLANNED PROCEDURE: Left heart catheterization with coronary angiogram and possible PCI PATIENT REASSESSED PRIOR TO SEDATION, WITH NO CHANGE NOTED: Yes PHYSICAL EXAM: alert, clear to auscultation bilaterally and regular rate & rhythm AIRWAY EVAL/ANESTHESIA PLAN: normal airway, see other exam findings, Monitored Anesthesia, Local Anesthesia, Risks, benefits & alternatives of sedation and/or procedure discussed and Patient agrees to continue as planned
--- NOTE | 2024-09-10 15:57 | P.PN_ITS ---
Subjective 2 Subjective: Admitted overnight. Currently complaining of pain and heaviness in both hands. Denies any nausea counting, headache. States symptoms are better than yesterday but still continues to have the symptoms. Vitals/I&O/Wt Last Vital Signs Temp 98.8 F 09/10/24 10:51 Pulse 59 L 09/10/24 11:46 Resp 18 09/10/24 11:46 BP 159/105 09/10/24 10:51 Pulse Ox 98 09/10/24 11:46 O2 Del Method Room Air 09/10/24 11:46 09/10/24 09/10/24 09/10/24 06:59 14:59 22:59 Intake Total 200 / 450 223.333 / 223.333 Output Total 350 / 350 Balance 200 / 450 -126.667 / -126.667 Weight last 48 hrs Weight 67.358 kg Weight 67.358 kg Weight 65.771 kg Physical Exam 2 Narrative: General: No acute distress, AO x3 HEENT: PERRLA, pupils bilaterally equal and reactive Chest: Normal vesicular breath sounds, no added sounds, equal good air entry bilaterally CVS: S1-S2 regular, no murmurs, no tachycardia, no gallops, no rubs Abdomen: Soft, nontender, no organomegaly, bowel sounds present Neuro: No focal deficits, no facial deformity, AO x3, power 5/5 in all limbs Data 09/10/24 03:37 09/10/24 03:37 A&P Assessment and plan (1) Non-ST elevation AK (NSTEMI): Troponin cycled overnight positive. Lexiscan stress test done today morning shows positive for ischemia in RCA territory. Patient continues to have occasional chest discomfort with persistent bilateral arm discomfort. Repeat troponin today morning. Start on heparin drip. Aspirin 325 mg one-time followed by 81 mg daily. Continue with home dose of Plavix and statin. Restart home dose of Coreg. Check A1c, lipid panel. Appreciate echocardiogram showing EF 50%, moderate to severe hypokinesia of mid and apical septum, PASP of 33 mmHg. Maintain n.p.o. status. Will discuss cardiology for possible cardiac angiogram. Empirically start patient on NS at 50 cc/h given concerns for CKD. (2) Ischemic cardiomyopathy: (3) CKD (chronic kidney disease): Baseline creatinine 1.4-1.7. Currently 1.3. Medical decompression done for nephrotoxic drugs. IV fluid as above. Monitor BMP daily. Qualifiers: Chronic kidney disease stage: unspecified stage Qualified Code(s): N 18.9 - Chronic kidney disease, unspecified (4) HTN (hypertension): Qualifiers: Hypertension type: essential hypertension Qualified Code(s): I10 - Essential (primary) hypertension (5) 3-vessel coronary artery disease: (6) Prostate cancer: (7) Lumbar stenosis with neurogenic claudication: (8) Atypical chest pain: Plan Full code N.p.o., start cardiac diet post cardiac cath DVT prophylaxis Protonix for PUD prophylaxis Attestations 2 Medical Necessity Statement*: Requires further hospitalization for management of non-ST ovation AK in a patient with history of CAD with CABG, CKD, ischemic cardiomyopathy Diagnoses Non-ST elevation AK (NSTEMI) I21.4 Ischemic cardiomyopathy I25.5 Chronic kidney disease, unspecified CKD stage N18.9 Chronic kidney disease stage: unspecified stage HTN (hypertension) I10 Hypertension type: essential hypertension 3-vessel coronary artery disease I25.10 Prostate cancer C61 Lumbar stenosis with neurogenic claudication M48.062 Atypical chest pain R07.89
[2024-09-10] MEDS: diphenhydrAMINE 50 mg Capsule PO (16:12)
--- NOTE | 2024-09-10 17:16 | PC.NURSE ---
Patient off the floor to rn labor and delivery at this time.
[2024-09-10 17:32] LABS: Partial Thromboplastin Time 104.4 SECONDS (23.9-36.7)
[2024-09-10] MEDS: sodium chloride 0.9% 1,000 ML 100 ML IV (19:05)
--- NOTE | 2024-09-10 19:18 | PM.PROC ---
Procedure Note: Pre-procedure diagnosis: Angina, abn stress test Procedure: High-grade mid RCA lesion treated with single drug-eluting stent postdilated with noncompliant balloon. Good angiographic result was noted. Plan: Continue aspirin statin Plavix Continue IV fluid NS 100 mL/h for next 7 hours Radial wristband removal as per protocol Full dictated note to follow Coding Level of Care Code Acute Code for Hannah Fwpatito
--- NOTE | 2024-09-10 19:29 | PC.NURSE ---
received report via Darren HARMAN from systems testing laboratory technician, patient arrived back on floor approximately 1905 patient has on to TR bands on right wrist the distal one is over the puncture site and the proximal TR band is over a small hematoma that formed in systems testing laboratory technician. Distal to sites pulse is strong and hand is normally colored and warm
[2024-09-10] MEDS: atorvastatin 40 mg Tablet PO (20:17)
--- NOTE | 2024-09-10 21:12 | NMCV_ITS ---
NM randa perf SPECT r/s* [id number] Rafa Ramirez Age: 79 Gender: M : 1945 Exam Date: 09/10/2024 06:26 Ordering Phys: Sobeida Galeano MD Technologist: DORYS Arguelles Exam Location: [facility] Indications: CP STRESS TEST Please see separate stress test report in [facility] for full findings IMAGE PROTOCOL Rest/Stress 1 Lexiscan Day Radiopharmaceutical Dose (mCi) Administration Site Administered by Rest: Tc-99m 10.7 IV Park Berger, INVENTORY AUDITOR Sestamibi Stress:Tc-99m 33 IV Park Ab, INVENTORY AUDITOR Sestamibi Rest: 10-Sep-2024 60 Discovery 630 Stress: 10-Sep-2024 30 Discovery 630 0.4mg Lexiscan. Images obtained in supine and prone position. SPECT RESULTS Technical Quality: Good Raw Data Analysis: Normal Image Corrections: No attenuation or motion correction applied Summed Stress Score: 32 Summed Rest Score: 22 Summed Difference Score: 10 PERFUSION FINDINGS Moderate to large area of moderate to severely decreased tracer uptake involving the inferior, inferoseptal, anteroseptal, anterior and all apical segments. Significant reversibility was noted in the inferior wall region. Minimal reversibility was noted in the inferoseptal, anteroseptal, anterior and apical regions as well. FUNCTIONAL RESULTS (calculated via Gated SPECT) Stress Image LV EF (%): 53 Stress EDV (mL):115 TID: 1.25 Stress ESV (mL):54 FUNCTIONAL FINDINGS: Segmental wall motion analysis revealed moderate diffuse hypokinesia of the LV apex IMPRESSIONS 1. Myocardial perfusion imaging revealing features of extensive scarring in distribution of the left and descending artery with this small areas of carlos eduardo- infarction ischemia. Minimal scarring with moderate area of ischemia in distribution of the right coronary artery.(Summed stress score of 32 with difference score of 10) 2. Normal LV ejection fraction of 53%. 3. Wall motion abnormality as mentioned above 4. Mildly dilated LV cavity with an end-systolic volume of 54 mL 5. Elevated transient ischemic dilatation ratio 1.25 suggesting endocardial ischemia Compared to the study from 01/19/2023, the ischemia in the RCA distribution appears to be new Dr Marta Novak MD FAC (Electronically Signed) Final Date: 10 September 2024 08:59 S
--- NOTE | 2024-09-11 00:28 | PC.NURSE ---
TR band over hematoma removed at 2300, area soft and bruised TR band over site was removed at 0020, area is soft, within normal coloring, no bruising, dressing is in place with no leakage. Air was removed from both TR bands at 2mL about every 15-30 minutes.
[2024-09-11 02:45] LABS: Basophils % 0.4 %; Eosinophils % 0.3 %; Hematocrit 40.5 % (37-53); Lymphocytes # 1.4 10^3/uL (0.8-4.8); Lymphocytes % 15.9 %; Mean Corpuscular HGB Conc 33.1 g/dL (30-55); Mean Corpuscular Hemoglobin 31.1 pg (27-33); Mean Platelet Volume 9.1 fL (7.4-10.4); Monocytes # 0.7 10^3/uL (0.2-0.9); Monocytes % 8.1 %; Neutrophils # 6.76 10^3/uL (1.8-7.7); Nucleated Red Blood Cells % 0 %; Platelet Count 239 10^3/cmm (157-399); Red Blood Count 4.31 10^6/uL (3.85-5.65); Red Cell Distribution Width 11.8 % (12.1-15.1); White Blood Count 9.03 10^3/uL (3.29-11.43)
[2024-09-11 03:06] LABS: Alanine Aminotransferase 9 U/L (0-41); Albumin Level 3.8 g/dL (3.5-5.2); Alkaline Phosphatase 78 U/L (40-130); Anion Gap 15.5 (5-19); Aspartate Amino Transferase 18 U/L (0-40); Blood Urea Nitrogen 18 mg/dL (8-23); Calcium 10.4 mg/dL (8.5-10.5); Carbon Dioxide 24 mmol/L (22-29); Chloride 102 mmol/L (98-107); Globulin 2.3 g/dL (1.3-4.6); Glucose 97 mg/dL (65-115); Osmolality Calculated 286 mOsm/kg (285-295); Potassium 4.5 mmol/L (3.5-5.1); Sodium 137 mmol/L (136-145); Total Bilirubin 0.3 mg/dL (0.15-1.2); Total Protein 6.1 g/dL (6.6-8.7)
[2024-09-11 03:07] LABS: Chol HDL Ratio 6.81 mg/dL (1.0-5.00); Cholesterol 211 mg/dL (0-200); HDL Cholesterol 31 mg/dL (60-100); LDL Cholesterol Calculated 143 mg/dL (50-129); Magnesium 2.1 mg/dL (1.7-2.3); Triglycerides 184 mg/dL (0-150); VLDL Cholestrol Calculation 37 mg/dL (0-30)
[2024-09-11 03:22] LABS: Folate Level 8.7 ng/mL (4.5-32.2)
[2024-09-11 04:12] VITALS: BP 147/87; PULSE 74; RESP 15; TEMP 36.5; O2SAT 96
[2024-09-11 07:52] VITALS: BP 157/92; PULSE 65; TEMP 36.7; O2SAT 100
[2024-09-11] MEDS: carvedilol 3.125 mg Tablet PO (07:56)
[2024-09-11] MEDS: amlodipine 10 mg Tablet PO (07:56)
[2024-09-11] MEDS: aspirin 81 mg EC Tablet PO (07:56)
[2024-09-11] MEDS: clopidogrel 75 mg Tablet PO (07:56)
[2024-09-11] MEDS: ezetimibe 10 mg Tablet PO (07:56)
--- NOTE | 2024-09-11 08:02 | PC.NURSE ---
Patient ambulating in suh looking for a ride home. Patient is worried about his .
--- NOTE | 2024-09-11 09:03 | P.DS_ITS ---
Discharge Providers Date of Admission: 09/09/24 20:22 Date of Discharge: September 11, 2024 Attending Provider at Admission: Sobeida Galeano MD Attending Provider at Discharge: Joshua Tran MD Primary Care Provider: Glenys Sears MD Diagnoses at Discharge Discharge Diagnosis (1) Non-ST elevation ND (NSTEMI): Status: Acute (2) Ischemic cardiomyopathy: Status: Acute (3) CKD (chronic kidney disease): Status: Acute Qualifiers: Chronic kidney disease stage: unspecified stage Qualified Code(s): N18.9 - Chronic kidney disease, unspecified Permanent problem details: -Renal function stable (4) HTN (hypertension): Status: Acute Qualifiers: Hypertension type: essential hypertension Qualified Code(s): I10 - Essential (primary) hypertension (5) 3-vessel coronary artery disease: Status: Acute (6) Prostate cancer: Status: Acute (7) Lumbar stenosis with neurogenic claudication: Status: Acute (8) Atypical chest pain: Status: Acute Reason for Visit Reason for Visit: CP SOB Brief History: History as per HPI: Rafa Ramirez is a 79 year old male with history of CABG coronary disease 5 stents in the past, last stent was done 2 years ago, he has history of schema cardiomyopathy 2021 coronary angiogram showed severe multivessel coronary artery disease including [employer], severe OM1, OM 2 and RCA stenosis. Patient underwent CT surgery evaluation and after heart team approach and discussion with patient, plan is to perform multivessel PCI of OM1, OM 2 and RCA and medically treat [employer] at this time. Patient underwent successful revascularization of OM1, OM 2 and RCA Presented today with chief complaint of bilateral elbow pain and chest discomfort. Patient is saying that 6 years ago when LAD stent was placed he had right elbow pain. His symptoms are always atypical. Patient stating that he was at rest when his elbow started hurting on 3:30 PM today, it associated with mild substernal chest discomfort which lasted for about an hour until he took a hot shower. It was not associated with fever, diarrhea, vomiting or diaphoresis. 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 Compliant with his medications. At the time evaluation is chest pain-free, first troponin is 15 I do not see any new change on his EKG as compared to previous EKGs, it is a sinus rhythm atrial enlargement old myocardial infarction changes with deep Q waves anteroseptal leads Hospital Course Hospital Course Patient was admitted to the hospital further evaluation and management of chest pain with concerns for non-ST elevation ND. He was started on heparin drip with concerns for elevated troponin. He underwent Lexiscan stress test which was concerning for moderate ischemia in RCA territory. Cardiology was consulted he underwent cardiac angiogram and underwent found to have high-grade mid RCA lesion which was treated with single drug-eluting stent. Patient hospitalization was unremarkable. He has been discharged hemodynamically stable condition on dual antiplatelet therapy, atorvastatin 40 mg oral daily. He was found to elevated blood pressures for which Imdur 30 mg daily has been added to his medication list. Physical Exam Narrative: General: No acute distress, AO x3 HEENT: PERRLA, pupils bilaterally equal and reactive Chest: Normal vesicular breath sounds, no added sounds, equal good air entry bilaterally CVS: S1-S2 regular, no murmurs, no tachycardia, no gallops, no rubs Abdomen: Soft, nontender, no organomegaly, bowel sounds present Neuro: No focal deficits, no facial deformity, AO x3, power 5/5 in all limbs Discharge Data Studies Completed and Pending Completed Studies During Hospitalization Category Date Time Status XR chest 1V portable [id number] Stat Exams 09/09/24 18:51 Completed NM randa perf SPECT r/s* [id number] Routine Nuc Med 09/10/24 21:12 Completed CV. 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 Laboratory Results WBC 9.03 10^3/uL (3.29-11.43) 09/11/24 02:20 RBC 4.31 10^6/uL (3.85-5.65) 09/11/24 02:20 Hgb 13.40 g/dL (11.27-16.99) 09/11/24 02:20 Hct 40.5 % (37-53) 09/11/24 02:20 MCV 94.0 fl (82-101) 09/11/24 02:20 MCH 31.1 pg (27-33) 09/11/24 02:20 MCHC 33.1 g/dL (30-55) 09/11/24 02:20 RDW 11.8 % (12.1-15.1) L 09/11/24 02:20 Plt Count 239 10^3/cmm (157-399) 09/11/24 02:20 MPV 9.1 fL (7.4-10.4) 09/11/24 02:20 Neut % (Auto) 75.0 % 09/11/24 02:20 Lymph % (Auto) 15.9 % 09/11/24 02:20 [place] % (Auto) 8.1 % 09/11/24 02:20 Eos % (Auto) 0.3 % 09/11/24 02:20 Baso % (Auto) 0.4 % 09/11/24 02:20 Neut # (Auto) 6.76 10^3/uL (1.8-7.7) 09/11/24 02:20 Lymph # (Auto) 1.4 10^3/uL (0.8-4.8) 09/11/24 02:20 [place] # (Auto) 0.7 10^3/uL (0.2-0.9) 09/11/24 02:20 Eos # (Auto) 0.0 10^3/uL (0.0-0.8) 09/11/24 02:20 Baso # (Auto) 0.0 10^3/uL (0.0-0.1) 09/11/24 02:20 Nucleated RBC % (auto) 0 % 09/11/24 02:20 Nucleated RBCs # 0.0 /100WBC 09/11/24 02:20 APTT 104.4 SECONDS (23.9-36.7) H 09/10/24 15:49 D-Dimer 0.46 ug/mLFEU (0-0.59) 09/09/24 18:10 Sodium 137 mmol/L (136-145) 09/11/24 02:20 Potassium 4.5 mmol/L (3.5-5.1) 09/11/24 02:20 Chloride 102 mmol/L (98-107) 09/11/24 02:20 Carbon Dioxide 24 mmol/L (22-29) 09/11/24 02:20 Anion Gap 15.5 (5-19) 09/11/24 02:20 BUN 18 mg/dL (8-23) 09/11/24 02:20 Creatinine 1.4 mg/dL (0.7-1.2) H 09/11/24 02:20 GFR Calculation Not Reportable 09/11/24 02:20 Glucose 97 mg/dL (65-115) 09/11/24 02:20 Estimat Average Glucose 114 09/09/24 18:10 Hemoglobin A1c 5.6 % (4.0-6.0) 09/09/24 18:10 Calculated Osmolality 286 mOsm/kg (285-295) 09/11/24 02:20 Calcium 10.4 mg/dL (8.5-10.5) 09/11/24 02:20 Magnesium 2.1 mg/dL (1.7-2.3) 09/11/24 02:20 Iron 79 ug/dL (59-158) 09/10/24 03:37 TIBC 230 mcg/dl 09/10/24 03:37 % Saturation 34.3 % (20-50) 09/10/24 03:37 Unsat Iron Binding 151 ug/dL (112-347) 09/10/24 03:37 Total Bilirubin 0.3 mg/dL (0.15-1.2) 09/11/24 02:20 AST 18 U/L (0-40) 09/11/24 02:20 ALT 9 U/L (0-41) 09/11/24 02:20 Alkaline Phosphatase 78 U/L (40-130) 09/11/24 02:20 Troponin T 5th Gen ng/L 66 ng/L (0-15) H 09/10/24 03:37 Troponin T Baseline 15 ng/L (0-15) 09/09/24 18:10 Troponin T 120 Minute 27.28 ng/L (0-15) H 09/09/24 20:20 Delta Troponin T 12.28 ABS# (0-10) H* 09/09/24 20:20 Troponin T Hi Sens 6Hr 51.42 ng/L (0-15) H 09/10/24 00:27 Troponin T Hi Sens 6Hr Delta 36.42 ng/L (0-12) H* 09/10/24 00:27 C-Reactive Protein 3.0 mg/L (0.0-4.9) 09/10/24 03:37 NT-Pro-B Natriuret Pep 664 pg/mL (0-450) H 09/09/24 18:10 Total Protein 6.1 g/dL (6.6-8.7) L 09/11/24 02:20 Albumin 3.8 g/dL (3.5-5.2) 09/11/24 02:20 Globulin 2.3 g/dL (1.3-4.6) 09/11/24 02:20 Triglycerides 184 mg/dL (0-150) H 09/11/24 02:20 Cholesterol 211 mg/dL (0-200) H 09/11/24 02:20 LDL Cholesterol, Calc 143 mg/dL (50-129) H 09/11/24 02:20 Total VLDL Cholesterol 37 mg/dL (0-30) H 09/11/24 02:20 HDL Cholesterol 31 mg/dL (60-100) L 09/11/24 02:20 Cholesterol/HDL Ratio 6.81 mg/dL (1.0-5.00) H 09/11/24 02:20 Vitamin B12 312 pg/mL (232-1245) 09/10/24 03:37 Folate 8.7 ng/mL (4.5-32.2) 09/11/24 02:20 TSH 5.26 uIU/mL (0.27-4.20) H 09/10/24 03:37 Vitals Last Vital Signs Temp 98.0 F 09/11/24 07:52 Pulse 65 09/11/24 07:52 Resp 15 09/11/24 04:12 BP 157/92 09/11/24 07:52 Pulse Ox 100 09/11/24 07:52 O2 Del Method Room Air 09/11/24 07:52 Discharge Plan Discharge Patient Disposition: Home Condition: Stable Prescriptions: New atorvastatin 40 mg Tablet 40 mg PO BEDTIME Qty: 30 0RF aspirin 81 mg Tablet,Delayed Release (Dr/Ec) 81 mg PO DAILY Qty: 30 0RF isosorbide mononitrate 30 mg tablet extended release 24 hr 30 mg PO DAILY Qty: 30 0RF Continued carvedilol [Coreg] 3.125 mg tablet 3.125 mg PO BID Qty: 180 3RF Rx Instructions: must administer with a meal/food amlodipine 10 mg tablet 10 mg PO DAILY Qty: 90 3RF ezetimibe [Zetia] 10 mg tablet 10 mg PO DAILY Qty: 90 3RF clopidogrel 75 mg tablet 75 mg PO DAILY Qty: 90 3RF Flonase Allergy Relief 50 mcg/actuation spray,suspension 2 spray INTRANASAL .prn cetirizine 10 mg tablet 10 mg PO DAILY Discharge Orders: Discharge Order (Routine); Ordered 09/11/24 Ordered By: Joshua Tran Referrals: Glenys Sears MD [Primary Care Provider] - 09/15/24 1:00 pm Marta Novak MD [Physician] - 1 month (Appointment with Dr. Gray 09/29/24 @ 3:15) Amara Mohr FNP [Nurse Practitioner] - 09/22/24 1:00 pm (Patient will see Shireen) Discharge Diet: Cardiac Discharge Activity: Resume usual activity and Increase activity as tolerated Patient Instructions: Aspirin (By mouth), Isosorbide Mononitrate (By mouth), Atorvastatin (By mouth), Heart Attack (DC), Coronary Artery Disease (DC), Chest Pain (DC), Prostate Cancer (DC), Opioid Safety Activity Restrictions/Additional Instructions: Continue taking dual antiplatelet therapy. Continue taking aspirin and Plavix both for now. Take atorvastatin 40 mg oral daily for elevated cholesterols. Repeat lipid panel in 6 months. Check your blood pressures daily at home maintain a blood pressure diary. Imdur 30 mg oral daily has added to your medical medication list. Discharge Attestations Time Spent in Discharge Care*: greater than 30 min Status at Discharge: Cognitive status at discharge: cognitively intact , Behavioral status at discharge: cooperative , Quality Metrics Clinical Quality Measures [ No reported AMI, CVA or VTE this stay] Coding Level of Care Code Acute Code for [facility] Diagnoses Non-ST elevation ND (NSTEMI) I21.4 Ischemic cardiomyopathy I25.5 Chronic kidney disease, unspecified CKD stage N18.9 Chronic kidney disease stage: unspecified stage HTN (hypertension) I10 Hypertension type: essential hypertension 3-vessel coronary artery disease I25.10 Prostate cancer C61 Lumbar stenosis with neurogenic claudication M48.062 Atypical chest pain R07.89
[2024-09-11 09:25] VITALS: PULSE 62; RESP 16; O2SAT 99
--- NOTE | 2024-09-11 10:49 | PM.PN ---
Subjective Subjective: The patient underwent the cardiac catheterization yesterday. He was found to have a high-grade lesion in the right coronary artery beyond the stented segment. He underwent PCI of this lesion. Currently he is stable with no recurrence of arm pain. He has been ambulating on telemetry without any specific complaints. Medications: Medication Review Details: Current Medications Acetaminophen (Acetaminophen 500 Mg Tablet) 500 mg PO Q4H PRN PRN Reason: fever Acetaminophen (Acetaminophen 325 Mg Tablet) 650 mg PO Q6H PRN PRN Reason: MILD PAIN Al Hydrox/Mg Hydrox/Simethicone (Sppz-Goy-Bpwkjnyje-Armond 30 Ml Udc) 30 ml PO Q15M PRN PRN Reason: INDIGESTION Albuterol/Ipratropium (Ipratropium-Albuterol 3 Ml Neb) 3 ml INHALATION Q6H PRN PRN Reason: SHORTNESS OF BREATH Amlodipine Besylate (Amlodipine 10 Mg Tablet) 10 mg PO DAILY [facility] Last Admin: 09/11/24 07:56 Dose: 10 mg Aspirin (Aspirin 81 Mg Ec Tablet) 81 mg PO DAILY [facility] Last Admin: 09/11/24 07:56 Dose: 81 mg Aspirin (Aspirin 81 Mg Ec Tablet) 81 mg PO DAILY [facility] Last Admin: 09/11/24 07:57 Dose: Not Given Atorvastatin Calcium (Atorvastatin 40 Mg Tablet) 40 mg PO BEDTIME [facility] Last Admin: 09/10/24 20:17 Dose: 40 mg Atropine Sulfate (Atropine 1 Mg/Ml Sdv 1 Ml) 0.5 mg IVP PRN PRN PRN Reason: Symptomatic bradycardia Carvedilol (Carvedilol 3.125 Mg Tablet) 3.125 mg PO BID [facility] Last Admin: 09/11/24 07:56 Dose: 3.125 mg Clopidogrel Bisulfate (Clopidogrel 75 Mg Tablet) 75 mg PO DAILY [facility] Last Admin: 09/11/24 07:56 Dose: 75 mg Clopidogrel Bisulfate (Clopidogrel 75 Mg Tablet) 75 mg PO DAILY [facility] Last Admin: 09/11/24 07:57 Dose: Not Given Ezetimibe (Ezetimibe 10 Mg Tablet) 10 mg PO DAILY [facility] Last Admin: 09/11/24 07:56 Dose: 10 mg Fentanyl (Fentanyl 50 Mcg/Ml Inj 2ml) 50 mcg IVP PRN PRN PRN Reason: Prior to sheath removal Heparin Sodium (Porcine) (Heparin 5,000 Unit/Ml Inj 1 Ml) 0 unit IVP PRN PRN; Protocol PRN Reason: Heparin Weight Based Protocol -Subsequent Bolus Hydralazine HCl (Hydralazine 20 Mg/Ml Inj 1 Ml) 10 mg IVP Q4H PRN PRN Reason: bp>180/110 Heparin Sodium/Sodium Chloride (Heparin Drip) 25,000 unit in 500 mls @ 0 mls/hr IV CONT FORTINO; Protocol Last Admin: 09/11/24 08:00 Dose: Not Given Sodium Chloride (Sodium Chloride 0.9%) 1,000 mls @ 50 mls/hr IV .Q20H [facility] Last Admin: 09/11/24 04:23 Dose: Not Given Sodium Chloride (Sodium Chloride 0.9%) 1,000 mls @ 50 mls/hr IV .Q20H ONE Stop: 09/11/24 10:55 Last Admin: 09/10/24 16:12 Dose: Not Given Sodium Chloride (Sodium Chloride 0.9%) 1,000 mls @ 100 mls/hr IV .Q10H [facility] Last Admin: 09/11/24 04:23 Dose: Not Given Magnesium Hydroxide (Magnesium Hydroxide 30 Ml Udc) 30 ml PO DAILY PRN PRN Reason: CONSTIPATION Naloxone HCl (Naloxone 0.4 Mg/Ml Sdv) 0.1 mg IVP Q2M PRN PRN Reason: RESPIRATORY RATE < 8/MIN Nitroglycerin (Nitroglycerin 0.4 Mg Sublingual Tablet) 0.4 mg SUBLINGUAL Q5M PRN PRN Reason: CHEST PAIN Ondansetron HCl (Ondansetron 2 Mg/Ml Sdv 2 Ml) 4 mg IVP Q6H PRN PRN Reason: NAUSEA AND VOMITING Ondansetron HCl (Ondansetron 2 Mg/Ml Sdv 2 Ml) 4 mg IVP Q2M PRN PRN Reason: NAUSEA Pantoprazole Sodium (Pantoprazole 40 Mg Sdv) 40 mg IVP BID [facility] Last Admin: 09/11/24 07:58 Dose: Not Given Temazepam (Temazepam 15 Mg Capsule) 15 mg PO BEDTIME PRN PRN Reason: INSOMNIA Vitals/I&O/Wt Last Vital Signs Temp 98.0 F 09/11/24 07:52 Pulse 62 09/11/24 09:25 Resp 16 09/11/24 09:25 BP 157/92 09/11/24 07:52 Pulse Ox 99 09/11/24 09:25 O2 Del Method Room Air 09/11/24 09:25 09/10/24 09/11/24 09/11/24 22:59 06:59 14:59 Intake Total 835.100 / 9464.682 3273 / 2063.433 240 / 240 Output Total 250 / 600 Balance 585.100 / 041.944 6856 / 1463.433 240 / 240 Weight last 48 hrs Weight 141 lb Weight 148 lb 8 oz Weight 148 lb 8 oz Weight 145 lb Physical Exam Narrative: GENERAL: The patient is alert and oriented times three. Not in any acute distress. HEENT: No significant pallor, icterus or lymphadenopathy.Oral cavity: There are no mucous membrane lesions. NECK: Trachea appears to be central. No masses noted. No JVD or thyromegaly appreciated. RESPIRATORY: Chest is symmetrical. No intercostals muscle retraction or any accessory muscle activation. There is no chest wall tenderness. Breath sounds are heard bilaterally. No rales or rhonchi heard. No evidence of any consolidation. BREASTS: Deferred. HEART: The heart sounds are normal. No S3 or S4. No significant murmurs. No pericardial rub ABDOMEN: No vessel pulsations or distention. No tenderness. No organomegaly appreciated. Bowel sounds are normally heard. : Deferred. RECTAL: Deferred. LYMPHATIC: No lymphadenopathy noted in the neck. EXTREMITIES: No hematoma bleeding from the right radial artery puncture site MUSCULOSKELETAL: No acute joint deformities or swelling SKIN: There are no significant rashes or ecchymosis NEUROPSYCHIATRIC: The patient is alert and oriented x3. Appears to be in a good mood. No tremors or rigidity noted. Data 09/11/24 02:20 09/11/24 02:20 Other Labs: Laboratory Last Values WBC 9.03 10^3/uL (3.29-11.43) 09/11/24 02:20 RBC 4.31 10^6/uL (3.85-5.65) 09/11/24 02:20 Hgb 13.40 g/dL (11.27-16.99) 09/11/24 02:20 Hct 40.5 % (37-53) 09/11/24 02:20 MCV 94.0 fl (82-101) 09/11/24 02:20 MCH 31.1 pg (27-33) 09/11/24 02:20 MCHC 33.1 g/dL (30-55) 09/11/24 02:20 RDW 11.8 % (12.1-15.1) L 09/11/24 02:20 Plt Count 239 10^3/cmm (157-399) 09/11/24 02:20 MPV 9.1 fL (7.4-10.4) 09/11/24 02:20 Neut % (Auto) 75.0 % 09/11/24 02:20 Lymph % (Auto) 15.9 % 09/11/24 02:20 [place] % (Auto) 8.1 % 09/11/24 02:20 Eos % (Auto) 0.3 % 09/11/24 02:20 Baso % (Auto) 0.4 % 09/11/24 02:20 Neut # (Auto) 6.76 10^3/uL (1.8-7.7) 09/11/24 02:20 Lymph # (Auto) 1.4 10^3/uL (0.8-4.8) 09/11/24 02:20 [place] # (Auto) 0.7 10^3/uL (0.2-0.9) 09/11/24 02:20 Eos # (Auto) 0.0 10^3/uL (0.0-0.8) 09/11/24 02:20 Baso # (Auto) 0.0 10^3/uL (0.0-0.1) 09/11/24 02:20 Nucleated RBC % (auto) 0 % 09/11/24 02:20 Nucleated RBCs # 0.0 /100WBC 09/11/24 02:20 APTT 104.4 SECONDS (23.9-36.7) H 09/10/24 15:49 D-Dimer 0.46 ug/mLFEU (0-0.59) 09/09/24 18:10 Sodium 137 mmol/L (136-145) 09/11/24 02:20 Potassium 4.5 mmol/L (3.5-5.1) 09/11/24 02:20 Chloride 102 mmol/L (98-107) 09/11/24 02:20 Carbon Dioxide 24 mmol/L (22-29) 09/11/24 02:20 Anion Gap 15.5 (5-19) 09/11/24 02:20 BUN 18 mg/dL (8-23) 09/11/24 02:20 Creatinine 1.4 mg/dL (0.7-1.2) H 09/11/24 02:20 GFR Calculation Not Reportable 09/11/24 02:20 Glucose 97 mg/dL (65-115) 09/11/24 02:20 Estimat Average Glucose 114 09/09/24 18:10 Hemoglobin A1c 5.6 % (4.0-6.0) 09/09/24 18:10 Calculated Osmolality 286 mOsm/kg (285-295) 09/11/24 02:20 Calcium 10.4 mg/dL (8.5-10.5) 09/11/24 02:20 Magnesium 2.1 mg/dL (1.7-2.3) 09/11/24 02:20 Iron 79 ug/dL (59-158) 09/10/24 03:37 TIBC 230 mcg/dl 09/10/24 03:37 % Saturation 34.3 % (20-50) 09/10/24 03:37 Unsat Iron Binding 151 ug/dL (112-347) 09/10/24 03:37 Total Bilirubin 0.3 mg/dL (0.15-1.2) 09/11/24 02:20 AST 18 U/L (0-40) 09/11/24 02:20 ALT 9 U/L (0-41) 09/11/24 02:20 Alkaline Phosphatase 78 U/L (40-130) 09/11/24 02:20 Troponin T 5th Gen ng/L 66 ng/L (0-15) H 09/10/24 03:37 Troponin T Baseline 15 ng/L (0-15) 09/09/24 18:10 Troponin T 120 Minute 27.28 ng/L (0-15) H 09/09/24 20:20 Delta Troponin T 12.28 ABS# (0-10) H* 09/09/24 20:20 Troponin T Hi Sens 6Hr 51.42 ng/L (0-15) H 09/10/24 00:27 Troponin T Hi Sens 6Hr Delta 36.42 ng/L (0-12) H* 09/10/24 00:27 C-Reactive Protein 3.0 mg/L (0.0-4.9) 09/10/24 03:37 NT-Pro-B Natriuret Pep 664 pg/mL (0-450) H 09/09/24 18:10 Total Protein 6.1 g/dL (6.6-8.7) L 09/11/24 02:20 Albumin 3.8 g/dL (3.5-5.2) 09/11/24 02:20 Globulin 2.3 g/dL (1.3-4.6) 09/11/24 02:20 Triglycerides 184 mg/dL (0-150) H 09/11/24 02:20 Cholesterol 211 mg/dL (0-200) H 09/11/24 02:20 LDL Cholesterol, Calc 143 mg/dL (50-129) H 09/11/24 02:20 Total VLDL Cholesterol 37 mg/dL (0-30) H 09/11/24 02:20 HDL Cholesterol 31 mg/dL (60-100) L 09/11/24 02:20 Cholesterol/HDL Ratio 6.81 mg/dL (1.0-5.00) H 09/11/24 02:20 Vitamin B12 312 pg/mL (232-1245) 09/10/24 03:37 Folate 8.7 ng/mL (4.5-32.2) 09/11/24 02:20 TSH 5.26 uIU/mL (0.27-4.20) H 09/10/24 03:37 A&P Assessment and plan (1) Elevated troponin: Most likely from the non-ST elevation myocardial infarction. Categorization revealed a high-grade lesion in the RCA which was intervened. Currently the patient is asymptomatic. (2) HTN (hypertension): Currently normotensive. May continue on the current medication. Qualifiers: Hypertension type: essential hypertension Qualified Code(s): I10 - Essential (primary) hypertension (3) Ischemic cardiomyopathy: The LV ejection fraction was around 50% by echocardiogram. This is essentially unchanged from the previous echocardiogram. (4) ASHD (arteriosclerotic heart disease): The patient was found to have patent stented segments in the obtuse marginal arteries and the right coronary artery. The LAD was found to be totally occluded. LVEDP of 19 mmHg. He underwent PCI of the high-grade lesion in the right coronary artery, just beyond the stented segment. Currently the patient is stable with no recurrence of the arm pain. (5) CKD (chronic kidney disease): Kidney function seems to be stable. The creatinine today is 1.4. Qualifiers: Chronic kidney disease stage: unspecified stage Qualified Code(s): N18.9 - Chronic kidney disease, unspecified (6) Dyslipidemia: May continue on the current medications. Plan Send the patient is doing okay, he may be discharged home from a cardiac standpoint. Need to be seen in the clinic in 1 week to be seen by the nurse practitioner. Appoint with me in the office in 2 months Attestations Medical Necessity Statement*: Disposition as per the primary Coding Level of Care Code 51890 Diagnoses Elevated troponin R79.89 HTN (hypertension) I10 Hypertension type: essential hypertension Ischemic cardiomyopathy I25.5 ASHD (arteriosclerotic heart disease) I25.10 Chronic kidney disease, unspecified CKD stage N18.9 Chronic kidney disease stage: unspecified stage Dyslipidemia E78.5
--- NOTE | 2024-09-11 11:33 | PC.NURSE ---
Addendum entered by Naida Garcia RN 09/11/24 11:40: Patient received [id number] prior to discharge. Original Note: Patient discharged to home. Patient has been up all morning waiting for discharge orders. He is worried about his . Patient refused final vital signs. Instruction provided regarding new medications, follow up needs and site care restrictions. Patient verbalized complete understanding. IV removed intact. S/p right radial access site remains c,d,i without s/s of bleeding or hematoma formation observed. Patient denies pain or needs. No distress observed. Patient escorted ambulatory to private vehicle.
--- NOTE | 2024-09-11 11:36 | PC.SOCIAL ---
CM was triggered to see for ride assistance, when i got to [facility] nursing stated they had already have a ride set up for him.
== END 2024-09-11 10:55 | disposition home or self-care (01) ==
LOC: ER 18:50 → CSU 20:49
PROVIDERS: Internal Medicine Cardiovascular Disease; Admitting Provider Internal Medicine; Emergency Provider Emergency Medicine; PCP Internal Medicine; Visit Provider Student in an Organized Health Care Education/Training Program
DX: I21.4 Non-ST elevation (NSTEMI) myocardial infarction (principal); I25.5 Ischemic cardiomyopathy; I12.9 Hypertensive chronic kidney disease with stage 1 through stage 4 chronic kidney disease, or unspecified chronic kidney disease; N18.9 Chronic kidney disease, unspecified; I25.10 Atherosclerotic heart disease of native coronary artery without angina pectoris; C61 Malignant neoplasm of prostate; M48.062 Spinal stenosis, lumbar region with neurogenic claudication; Z95.1 Presence of aortocoronary bypass graft; Z95.5 Presence of coronary angioplasty implant and graft; Z86.73 Personal history of transient ischemic attack (TIA), and cerebral infarction without residual deficits; Z87.11 Personal history of peptic ulcer disease; E03.9 Hypothyroidism, unspecified; I25.2 Old myocardial infarction
CPT/HCPCS: 36415; 71045; 78452; 80048; 80053; 80061; 82607; 82746; 83036; 83540; 83550; 83735; 83880; 84443; 84484; 85025; 85049; 85347; 85378; 85730; 86140; 93005; 93017; 93306; 93458; 96365; 96372; 96374; 96375; 96376; 99152; 99153; 99285; A9500; C1725; C1769; C1874; C1887; C1894; C9600; G0378; J1644; J2250; J2470; J2785; J3010; J3490; J7030; Q0163; Q9967

== ENCOUNTER → 2024-09-22 13:54 | Outpatient (BNVA) | payer MEDICARE, SELFPAY | PROVIDERS: PCP Internal Medicine; Visit Provider Nurse Practitioner Family | DX: I12.9 Hypertensive chronic kidney disease with stage 1 through stage 4 chronic kidney disease, or unspecified chronic kidney disease (principal); N18.9 Chronic kidney disease, unspecified; I25.5 Ischemic cardiomyopathy; E78.5 Hyperlipidemia, unspecified; I25.10 Atherosclerotic heart disease of native coronary artery without angina pectoris | CPT/HCPCS: 99213 ==

== ENCOUNTER → 2024-09-29 14:30 | Outpatient (BNVA) | payer MEDICARE, SELFPAY | PROVIDERS: PCP Internal Medicine; Visit Provider Internal Medicine | DX: I12.9 Hypertensive chronic kidney disease with stage 1 through stage 4 chronic kidney disease, or unspecified chronic kidney disease (principal); N18.9 Chronic kidney disease, unspecified; I25.5 Ischemic cardiomyopathy; E78.5 Hyperlipidemia, unspecified; I25.10 Atherosclerotic heart disease of native coronary artery without angina pectoris | CPT/HCPCS: 99214 ==

== ENCOUNTER 2024-11-07 21:01 | Emergency (ER) | payer MEDICARE, SELFPAY ==
[2024-11-07 21:04] VITALS: BP 181/84; PULSE 61; RESP 16; TEMP 36.7; O2SAT 98; BMI 22.0
--- NOTE | 2024-11-07 21:08 | ECG_ITS ---
[facility] Test Date: 2024-11-07 Pat Name: Rafa Ramirez Department: Room: Gender: Male Vp: : 1945 Requested By: Khurram Herrera Order Number: [id number] Aleksander MD: KIESHA BREWER Measurements Intervals [place] Rate: 64 P: 54 [place]: 135 QRS: 9 QRSD: 86 T: 63 QT: 405 QTc: 419 Interpretive Statements SINUS RHYTHM ANTERIOR MYOCARDIAL INFARCTION , OF INDETERMINATE AGE [40+ ms Q WAVE AND/OR ST/T ABNORMALITY IN V3/V4] Compared to ECG 09/10/2024 00:15:33 Sinus bradycardia no longer present Myocardial infarct finding still present Electronically Signed On 11-09-2024 22:17:31 CDT by KIESHA BREWER [email or web address]
--- NOTE | 2024-11-07 21:28 | ECG_ITS ---
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
--- NOTE | 2024-11-07 21:28 | XRR_ITS ---
PROCEDURE INFORMATION: Exam: XR Chest Exam date and time: 11/07/2024 9:34 PM Age: 79 years old Clinical indication: Chest pressure; Prior surgery; Surgery date: 6+ months; Surgery type: Cardiac stents; PT arrives with C/O chest pain. PT stated his cp started around [id number]. PT has HX of [address] PT stated he had a make in 2011. PT denies cp during triage. PT states when he has cp it radiates into both arms and between his shoulder blades. TECHNIQUE: Imaging protocol: Radiologic exam of the chest. Views: 1 view. COMPARISON: CR XR chest 1V portable [id number] 09/09/2024 6:55 PM FINDINGS: Lungs: Left lower lobe lung opacity could relate to atelectasis or pneumonia. Pleural spaces: Unremarkable. Heart/Mediastinum: Nonenlarged heart. Bones/joints: No acute fracture. XR/XR chest 1V portable [id number] IMPRESSION: Left basilar lung opacity could relate to atelectasis or pneumonia.
--- NOTE | 2024-11-07 21:34 | W.ED.CHESTPA ---
HPI - Chest Pain General: Chief Complaint: Chest Pain Stated Complaint: Chest Pain going into both arms Time Seen by Provider: 11/07/24 21:17 History of Present Illness: 79-year-old male with a history of coronary disease, status post multiple stents, last in September this year. He presents after getting chest pain while working at home. His pain is resolved. He took Tylenol. He did not take any other medication for his pain. Related Data Home Medications ?Medication ?Instructions ?Recorded ?Confirmed fluticasone propionate 50 2 spray intranasal .prn 01/09/21 09/29/24 mcg/actuation nasal spray,suspension (Flonase Allergy Relief) cetirizine 10 mg tablet 10 mg PO DAILY 11/01/21 09/29/24 Previous Rx's ?Medication ?Instructions ?Recorded ezetimibe 10 mg tablet (Zetia) 10 mg PO DAILY #90 tabs 01/17/24 clopidogrel 75 mg tablet 75 mg PO DAILY #90 tabs 03/16/24 aspirin 81 mg tablet,delayed 81 mg PO DAILY #30 tabs 09/11/24 release amlodipine 10 mg tablet 10 mg PO DAILY #90 tabs 09/22/24 carvedilol 3.125 mg tablet (Coreg) 3.125 mg PO BID #180 tabs 09/22/24 Allergies Allergy/AdvReac Type Severity Reaction Status Date / Time atorvastatin Allergy ALGY-Hives Verified 09/29/24 14:48 evolocumab (From Repatha Allergy rash Verified 09/29/24 14:48 SureClick) meloxicam Allergy rash Verified 09/29/24 14:48 [facility] PFSH: Medical History (Updated 11/08/24 @ 00:05 by Khurram Braden DO) LV (left ventricular) mural thrombus CVA (cerebral vascular accident) Hypothyroidism CKD (chronic kidney disease) -Renal function stable ASHD (arteriosclerotic heart disease) Myocardial infarction Dyslipidemia -Lipid panel noted, on statin Ischemic cardiomyopathy PUD (peptic ulcer disease) HTN (hypertension) Erectile dysfunction Prostate cancer Surgical History S/P tonsillectomy S/P cataract extraction Hx of heart artery stent LAD stent Hx of hernia repair Family History Father , PROSTATE CANCER Cancer Mother , OVARIAN CANCER Cancer Social History Smoking and tobacco/nicotine status: never used tobacco/nicotine Alcohol intake: never Substance/Drug Use: never Marital status: Current occupational status: retired Physical Exam Const: COMMON NORMALS: no acute distress GENERAL APPEARANCE: cooperative; not ill appearing and not frail appearing HENMT: COMMON NORMALS: normocephalic, atraumatic and Normal external nose present HEAD & SCALP: normocephalic and atraumatic FACE & SINUS: normal facial exam and face symmetric NOSE: Normal external nose present Eye: COMMON NORMALS: Equal, round and reactive pupils present and EOMs intact bilaterally PUPIL: Yes Equal, round and reactive pupils present Neck/C-Spine: GENERAL: Yes trachea midline Chest: CHEST: Yes Symmetrical chest wall rise Resp: COMMON NORMALS: normal respiratory effort, No retractions, No use of accessory muscles and clear to auscultation bilaterally AUSCULTATION: clear to auscultation bilaterally Cardio: COMMON NORMALS: regular rate and regular rhythm RATE: regular rate RHYTHM: regular rhythm GI: COMMON NORMALS: Normal to inspection, nondistended, normoactive bowel sounds present Extremity: COMMON NORMALS: no pedal edema Neuro: HUYEN COMA SCALE: document GCS findings [place] coma scale eye opening: Spontaneous [place] coma scale verbal response: Orientated [place] coma scale motor response: [place]bey commands [place] coma scale total score: 15 SENSORY EXAM: Yes extremities (intact) Psych: COMMON NORMALS: speech normal SPEECH: Yes normal speech Skin: COMMON NORMALS: no rashes or lesions noted GENERAL SKIN EXAM: no rashes or lesions noted Course Vital Signs: Vital signs: Vital Signs Temperature 98.0 F 11/07/24 21:04 Pulse Rate 58 L 11/08/24 00:36 Respiratory Rate 20 H 11/07/24 23:14 Blood Pressure 168/79 11/08/24 00:36 Pulse Oximetry 58 L 11/08/24 00:36 Oxygen Delivery Me thod Room Air 11/07/24 21:04 MDM - Chest Pain Medical Decision Making Chest x-ray reveals left lower lobe atelectasis. Hemoglobin is 14. White blood cell count is 7.5. Creatinine is 1.5 which is stable for the patient. Delta troponin is -1 at 2 hours. His baseline is 19, which is lower than his normal baseline. His pain is resolved. He has been up to the bathroom without recurrence of pain. He will be allowed discharge home. Lab Data 11/07/24 21:30 11/07/24 21: Radiology Impressions Chest X-Ray 11/07/24 21:28 IMPRESSION: Left basilar lung opacity could relate to atelectasis or pneumonia. Laboratory Results WBC 7.47 10^3/uL (3.29-11.43) 11/07/24 21: RBC 4.55 10^6/uL (3.85-5.65) 11/07/24 21: Hgb 14.20 g/dL (11.27-16.99) 11/07/24: Hct 43.4 % (37-53) 11/07/24 21: MCV 95.4 fl (82-101) 11/07/24 21: MCH 31.2 pg (27-33) 11/07/24: MCHC 32.7 g/dL (30-55) 11/07/24 21: RDW 11.7 % (12.1-15.1) L 11/07/24 21: Plt Count 251 10^3/cmm (157-399) 11/07/24: MPV 9.1 fL (7.4-10.4) 11/07/24 21: Neut % (Auto) 67.2 % 11/07/24 21: Lymph % (Auto) 21.0 % 11/07/24: [place] % (Auto) 8.2 % 11/07/24: Eos % (Auto) 2.5 % 11/07/24 21: Baso % (Auto) 0.8 % 11/07/24: Neut # (Auto) 5.02 10^3/uL (1.8-7.7) 11/07/24: Lymph # (Auto) 1.6 10^3/uL (0.8-4.8) 11/07/24 21: [place] # (Auto) 0.6 10^3/uL (0.2-0.9) 11/07/24 21: Eos # (Auto) 0.2 10^3/uL (0.0-0.8) 11/07/24 21:30 Baso # (Auto) 0.1 10^3/uL (0.0-0.1) 11/07/24 21: Nucleated RBC % (auto) 0 % 11/07/24 21: Nucleated RBCs # 0.0 /100WBC 11/07/24 21:30 PT 12.30 SECONDS (12.1-14.9) 11/07/24 21: INR 0.85 (0.8-1.2) 11/07/24 21:30 APTT 31.7 SECONDS (23.9-36.7) 11/07/24 21:30 Sodium 140 mmol/L (136-145) 11/07/24 21: Potassium 4.1 mmol/L (3.5-5.1) 11/07/24 21: Chloride 103 mmol/L (98-107) 11/07/24 21: Carbon Dioxide 25 mmol/L (22-29) 11/07/24 21: Anion Gap 16.1 (5-19) 11/07/24 21:30 BUN 36 mg/dL (8-23) H 11/07/24 21:30 Creatinine 1.5 mg/dL (0.7-1.2) H 11/07/24 21:30 GFR Calculation Not Reportable 11/07/24 21: Glucose 114 mg/dL (65-115) 11/07/24 21:30 Calculated Osmolality 299 mOsm/kg (285-295) H 11/07/24 21:30 Calcium 10.5 mg/dL (8.5-10.5) 11/07/24 21:30 Total Bilirubin 0.2 mg/dL (0.15-1.2) 11/07/24 21:30 AST 20 U/L (0-40) 11/07/24 21:30 ALT 11 U/L (0-41) 11/07/24 21:30 Alkaline Phosphatase 120 U/L (40-130) 11/07/24 21:30 Troponin T Baseline 20 ng/L (0-15) H 11/07/24 21:30 Troponin T 120 Minute 19.04 ng/L (0-15) H 11/07/24 23:30 Delta Troponin T -0.96 ABS# (0-10) L 11/07/24 23:30 NT-Pro-B Natriuret Pep 871 pg/mL (0-450) H 11/07/24 21:30 Total Protein 7.0 g/dL (6.6-8.7) 11/07/24 21:30 Albumin 4.5 g/dL (3.5-5.2) 11/07/24 21:30 Globulin 2.5 g/dL (1.3-4.6) 11/07/24 21:30 All radiology interpretation(s) finalized by discharge Discharge Plan Discharge Patient Disposition: Home Clinical Impression: Chest pain Condition: Stable Prescriptions: No Action carvedilol [Coreg] 3.125 mg tablet 3.125 mg PO BID Qty: 180 3RF Rx Instructions: must administer with a meal/food amlodipine 10 mg tablet 10 mg PO DAILY Qty: 90 3RF ezetimibe [Zetia] 10 mg tablet 10 mg PO DAILY Qty: 90 3RF clopidogrel 75 mg tablet 75 mg PO DAILY Qty: 90 3RF Flonase Allergy Relief 50 mcg/actuation spray,suspension 2 spray INTRANASAL .prn cetirizine 10 mg tablet 10 mg PO DAILY aspirin 81 mg Tablet,Delayed Release (Dr/Ec) 81 mg PO DAILY Qty: 30 0RF Discharge Orders: Discharge ED (Routine); Ordered 11/08/24 Ordered By: Khurram Braden Referrals: Glenys Sears MD [Primary Care Provider] - 1-3 days Patient Instructions: Chest Pain (ED), Opioid Safety, Pain Management Activity Restrictions/Additional Instructions: Return for any repeated episodes of chest discomfort, shortness of breath, fever, other concerning symptoms. Call your doctor on Saturday. They may wish to see you or run more tests. Print Language: [place]an Coding Level of Care Code ED Medical Laboratory Technologist for Hannah Saunders
[2024-11-07 21:58] LABS: Basophils # 0.1 10^3/uL (0.0-0.1); Basophils % 0.8 %; Eosinophils # 0.2 10^3/uL (0.0-0.8); Eosinophils % 2.5 %; Hematocrit 43.4 % (37-53); Lymphocytes # 1.6 10^3/uL (0.8-4.8); Mean Corpuscular HGB Conc 32.7 g/dL (30-55); Mean Corpuscular Hemoglobin 31.2 pg (27-33); Mean Corpuscular Volume 95.4 fl (82-101); Mean Platelet Volume 9.1 fL (7.4-10.4); Monocytes # 0.6 10^3/uL (0.2-0.9); Monocytes % 8.2 %; Neutrophils # 5.02 10^3/uL (1.8-7.7); Neutrophils % 67.2 %; Nucleated Red Blood Cells % 0 %; Platelet Count 251 10^3/cmm (157-399); Red Blood Count 4.55 10^6/uL (3.85-5.65); Red Cell Distribution Width 11.7 % (12.1-15.1); White Blood Count 7.47 10^3/uL (3.29-11.43)
[2024-11-07 21:59] VITALS: BP 172/81; PULSE 60; RESP 15; O2SAT 99
[2024-11-07 22:03] LABS: INR 0.85 (0.8-1.2)
[2024-11-07 22:04] LABS: Partial Thromboplastin Time 31.7 SECONDS (23.9-36.7)
[2024-11-07 22:14] VITALS: BP 164/75; PULSE 64; RESP 16; O2SAT 97
[2024-11-07 22:14] LABS: Troponin(5th) Baseline 20 ng/L (0-15)
[2024-11-07 22:23] LABS: Alanine Aminotransferase 11 U/L (0-41); Albumin Level 4.5 g/dL (3.5-5.2); Alkaline Phosphatase 120 U/L (40-130); Anion Gap 16.1 (5-19); Aspartate Amino Transferase 20 U/L (0-40); Blood Urea Nitrogen 36 mg/dL (8-23); Calcium 10.5 mg/dL (8.5-10.5); Carbon Dioxide 25 mmol/L (22-29); Chloride 103 mmol/L (98-107); Creatinine Clr Calc Pharmacy 39.2866; Globulin 2.5 g/dL (1.3-4.6); Glucose 114 mg/dL (65-115); NT Pro B Type Natriuretic Pept 871 pg/mL (0-450); Osmolality Calculated 299 mOsm/kg (285-295); Potassium 4.1 mmol/L (3.5-5.1); Sodium 140 mmol/L (136-145); Total Bilirubin 0.2 mg/dL (0.15-1.2)
[2024-11-07 23:14] VITALS: BP 168/79; PULSE 58; RESP 20; O2SAT 98
[2024-11-07 23:55] LABS: Troponin 5 2HR 19.04 ng/L (0-15)
[2024-11-07 23:58] LABS: Troponin 5 2HR Delta -0.96 ABS# (0-10)
[2024-11-08 00:36] VITALS: BP 168/79; PULSE 58; O2SAT 58
== END 2024-11-08 00:59 | disposition home or self-care (01) ==
PROVIDERS: Emergency Provider Emergency Medicine; PCP Internal Medicine
DX: R07.9 Chest pain, unspecified (principal); Z79.02 Long term (current) use of antithrombotics/antiplatelets; Z79.82 Long term (current) use of aspirin; Z85.46 Personal history of malignant neoplasm of prostate; Z86.73 Personal history of transient ischemic attack (TIA), and cerebral infarction without residual deficits; I12.9 Hypertensive chronic kidney disease with stage 1 through stage 4 chronic kidney disease, or unspecified chronic kidney disease; N18.9 Chronic kidney disease, unspecified; E78.5 Hyperlipidemia, unspecified
CPT/HCPCS: 36415; 71045; 80053; 83880; 84484; 85025; 85610; 85730; 93005; 99285

== ENCOUNTER → 2025-03-30 13:48 | Outpatient (BNVA) | payer MEDICARE, SELFPAY | PROVIDERS: PCP Internal Medicine; Visit Provider Internal Medicine | DX: I12.9 Hypertensive chronic kidney disease with stage 1 through stage 4 chronic kidney disease, or unspecified chronic kidney disease (principal); N18.9 Chronic kidney disease, unspecified; I25.10 Atherosclerotic heart disease of native coronary artery without angina pectoris; I25.5 Ischemic cardiomyopathy; E78.5 Hyperlipidemia, unspecified; Z79.02 Long term (current) use of antithrombotics/antiplatelets; Z79.82 Long term (current) use of aspirin; Z86.73 Personal history of transient ischemic attack (TIA), and cerebral infarction without residual deficits; I25.2 Old myocardial infarction | CPT/HCPCS: 99214 ==